=== PATIENT | male | born 1940 | race Caucasian/White ===

== ENCOUNTER 2020-05-28 22:09 | Emergency (ER) | payer MEDICARE, SELFPAY ==
[2020-05-28 22:17] VITALS: BP 125/64; PULSE 68; RESP 18; TEMP 36.7; O2SAT 96; BMI 29.9
--- NOTE | 2020-05-28 22:50 | PC.NURSE ---
pt brought in by ems d/t increased anxiety at home. per pts reported pt takes po ativan at home, that seems to not help as much anymore. pt works himself up into a panic attack per . Upon triage pt is alert to person, and city otherwise vague, but able to acknowledge that he will not be able to answer history questions. currently waiting to be seen, in waiting room if needed.
--- NOTE | 2020-05-28 23:08 | ED_ITS ---
HPI - General Adult General Chief complaint: Anxiety Stated complaint: INCREASED ANXIETY AND DEMENTIA SYMPTOMS Time Seen by Provider: 05/28/20 23:07 Source: family ( ) Mode of arrival: EMS History of Present Illness HPI narrative: This is a 79-year-old male with known severe dementia who is brought in by EMS after being called by the . The states that the patient has had increased anxiety to the point that he will began hyp erventilating and although he does have Ativan p.r.n. she is requesting an adjustment of the medication to better manage this patient's behavior. Related Data Home Medications Medication Instructions Recorded Confirmed amlodipine 5 mg PO DAILY 05/27/20 05/29/20 aspirin 81 mg PO DAILY 05/27/20 05/29/20 docusate sodium [Colace] 100 mg PO DAILY 05/27/20 05/29/20 lorazepam 0.5 mg PO BID PRN 05/27/20 05/29/20 metoprolol tartrate 100 mg PO BEDTIME 05/27/20 05/29/20 metoprolol tartrate [Lopressor] 150 mg PO DAILY 05/27/20 05/29/20 omeprazole 20 mg PO DAILY 05/27/20 05/29/20 simvastatin 40 mg PO BEDTIME 05/27/20 05/29/20 vitamin [id number] B1 1,000 ml IM QMONTH 05/27/20 05/29/20 Allergies Allergy/AdvReac Type Severity Reaction Status Date / Time bee pollen [BEE STINGS] Allergy Unknown UNKNOWN Verified 05/27/20 11:42 lisinopril [LISINOPRIL] Allergy Unknown FACIAL Verified 05/27/20 11:42 EDEMA Review of Systems Review of Systems: Yes Unobtainable due to mental condition [facility]LY [facility] Past Medical History Source: nursing notes reviewed Medical History Anxiety Dementia Heterozygous factor V Leiden mutation History of GI bleed History of melanoma Hx of deep venous thrombosis Hypertension Social History Social History Alcohol intake: unknown Smoking Status: Unknown if ever smoked Use of substances other than those prescribed or required for medical reasons: Unknown Advance Directives: No Advance Directives Information Provided: No Physical Exam Vital Signs: Vital Signs: Vital Signs Temp Pulse Resp BP Pulse Ox 05/29/20 01:19 97.9 F 74 16 112/59 L 97 05/28/20 22:17 98.0 F 68 18 125/64 96 Body Mass Index 29.9 VITAL SIGNS: Reviewed. GENERAL: Well developed, well nourished, in no acute distress. HEAD: Normocephalic/atraumatic, EYES: PERRLA, EOMI intact without pain, no nystagmus/pallor/icterus noted EARS: Ext canals without abnormality, TMs non-bulging and non-erythematous NOSE: Nares patent bilateral OROPHARYNX: no oral lesions noted, posterior pharynx clear and non-erythematous without noted tonsillar enlargement/erythema/exudates NECK: Supple, no adenopathy LUNGS: Normal breath sounds. No adventitious sounds or accessory muscle use. SpO2<96> CARDIOVASCULAR: Regular rate and rhythm without noted murmurs, no JVD or lower extremity edema. ABDOMEN: Soft, non-tender, non-distended with bowel sounds. No rigidity. No guarding. No palpable masses or hernias noted MUSCULOSKELETAL: No tenderness, deformities, or effusions noted on gross inspection. EXTREMITIES: No cyanosis, clubbing or edema. SKIN: Inspection of the skin reveals no rashes, ulcerations, jaundice, pallor, or petechiae. NEUROLOGIC: Alert and oriented x 4. Strength and sensation to light touch were grossly intact x 4. Course Course Course Narrative: This is a 79-year-old male with history and clinical presentation suggestive of progressive dementia and will discuss with the regarding possible placement versus increased assistance at home. Patient's is declining any additional resources at home, placement to a long-term care facility, and she was informed that we will evaluate for any evidence of infection or anemia but that if those conditions were ruled out then patient would be discharged back to home with instructions to call the primary care provider in the morning for re-evaluation of medications for agitation. On review of all investigations there is no evidence acute infection or anemia and patient has been calm and cooperative throughout his entire stay here in the emergency department. Suspect this may be progression dementia and patient would benefit from further outpatient evaluation and alternatives in medication such as Seroquel. Medical Decision Making Lab Data Result diagrams: 05/29/20 00:15 05/29/20 00:15 Labs: Lab Results 05/29/20 05/29/20 Range/Units 00:15 00:15 WBC 7.9 (4.8-10.8) X10*3/uL RBC 4.36 L (4.60-5.80) X10*6/uL Hgb 14.1 (14.0-18.0) g/dl Hct 39.3 L (42-52) % MCV 90.1 (80-98) fL MCH 32.3 (27.0-33.0) pg MCHC 35.9 (31.0-36.0) g/dl RDW 12.1 (11.0-16.0) % Plt Count 173 (160-400) X10*3/uL MPV 8.3 L (9.4-12.4) fL Immature Gran % (Auto) 0.3 (0.0-0.4) % Neut % (Auto) 63.8 (45-73) % Lymph % (Auto) 25.2 (20-40) % [place] % (Auto) 7.9 (2-11) % Eos % (Auto) 2.3 (0-4) % Baso % (Auto) 0.5 (0-2) % Lymph # (Auto) 2.0 (1.2-4.9) X10*3/uL [place] # (Auto) 0.6 (0.1-1.2) X10*3/uL Eos # (Auto) 0.2 (0.0-0.4) X10*3/uL Baso # (Auto) 0.0 (0.0-0.2) X10*3/uL Abs Immat Gran (auto) 0.02 (0.00-0.03) X10*3/uL Absolute Neuts (auto) 5.1 (2.0-8.3) X10*3/uL Absolute Nucleated RBC 0.000 (0.0-0.012) X10*3/uL Nucleated RBC % (auto) 0.0 (0.0-0.2) /100WBC Sodium 130 L (135-145) mmol/L Potassium 4.2 (3.3-5.1) mmol/l Chloride 97 (96-108) mmol/L Carbon Dioxide 21 L (22-29) mmol/L Anion Gap 16 (12-20) BUN 13 (9-16) mg/dL Creatinine 0.96 (0.5-1.4) mg/dL Estim Creat Clear Calc 77.7 Estimated GFR > 60 Random Glucose 93 (60-115) mg/dL Calcium 8.9 (8.4-10.2) mg/dL Total Bilirubin 1.4 H (0.0-1.0) mg/dL AST 22 (5-37) U/L ALT 15 (0-40) U/L Alkaline Phosphatase 78 (39-117) U/L Total Protein 6.9 (6.5-8.0) g/dL Albumin 4.0 (3.5-5.0) g/dL Discharge Plan Discharge Clinical Impression: Agitated Patient Disposition: Home, Self-Care Instructions: Dementia (ED) Additional Instructions: Please resume all home medications as prescribed. Please follow-up with your primary care provider in the morning to discuss further or alternative medications to treat the observed agitation or anxiety that the patient is a experiencing. The patient and/or family acknowledge understanding of results (as applicable), diagnosis, treatment plan, need for follow up, and symptoms that should prompt a return to the emergency room. Prescriptions: No Action amlodipine 5 mg Tablet 5 mg PO DAILY RF: 0 aspirin 81 mg Tablet 81 mg PO DAILY RF: 0 metoprolol tartrate 100 mg Tablet 100 mg PO BEDTIME RF: 0 metoprolol tartrate [Lopressor] 100 mg Tablet 150 mg PO DAILY RF: 0 simvastatin 40 mg Tablet 40 mg PO BEDTIME RF: 0 omeprazole 20 mg Capsule,Delayed Release(Dr/Ec) 20 mg PO DAILY RF: 0 vitamin A61-[id number] B1 1,000-100 mg/mL Solution 1,000 ml IM QMONTH RF: 0 lorazepam 0.5 mg Tablet 0.5 mg PO BID PRN (Reason: Anxiety) RF: 0 docusate sodium [Colace] 100 mg Capsule 100 mg PO DAILY RF: 0 Referrals: Physician,Unknown [Primary Care Provider] - 2 days
[2020-05-29 00:23] LABS: MANUAL DIFF FLAG NO
[2020-05-29 00:28] LABS: Basophils Percent Auto 0.5 % (0-2); Eosinophils Absolute Auto 0.2 X10*3/uL (0.0-0.4); Eosinophils Percent Auto 2.3 % (0-4); Hematocrit 39.3 % (42-52); Hemoglobin 14.1 g/dl (14.0-18.0); Imm Gran Abs Auto 0.02 X10*3/uL (0.00-0.03); Imm Gran Pct Auto 0.3 % (0.0-0.4); Lymphocytes Percent Auto 25.2 % (20-40); Mean Corpuscular HGB Conc 35.9 g/dl (31.0-36.0); Mean Corpuscular Hemoglobin 32.3 pg (27.0-33.0); Mean Corpuscular Volume 90.1 fL (80-98); Mean Platelet Volume 8.3 fL (9.4-12.4); Monocytes Absolute Auto 0.6 X10*3/uL (0.1-1.2); Monocytes Percent Auto 7.9 % (2-11); Neutrophils Absolute Auto 5.1 X10*3/uL (2.0-8.3); Neutrophils Percent Auto 63.8 % (45-73); Platelet Count 173 X10*3/uL (160-400); Red Blood Count 4.36 X10*6/uL (4.60-5.80); Red Cell Distribution Width 12.1 % (11.0-16.0); White Blood Count 7.9 X10*3/uL (4.8-10.8)
[2020-05-29 00:55] LABS: Alanine Aminotransferase 15 U/L (0-40); Alkaline Phosphatase 78 U/L (39-117); Anion Gap 16 (12-20); Aspartate Amino Transferase 22 U/L (5-37); Bilirubin Total 1.4 mg/dL (0.0-1.0); Blood Urea Nitrogen 13 mg/dL (9-16); Calcium 8.9 mg/dL (8.4-10.2); Carbon Dioxide 21 mmol/L (22-29); Chloride 97 mmol/L (96-108); Creatinine Clr Calc Pharmacy 77.7; Estimated Glomerular Filt Rate > 60; Glucose Random 93 mg/dL (60-115); Potassium 4.2 mmol/l (3.3-5.1); Sodium 130 mmol/L (135-145); Total Protein 6.9 g/dL (6.5-8.0)
[2020-05-29 01:19] VITALS: BP 112/59; PULSE 74; RESP 16; TEMP 36.6; O2SAT 97
[2020-05-29 01:45] LABS: Glucose Urine UA NEG (NEG); Leukocyte Esterase Urine TRACE (NEG); Nitrite Urine NEG (NEG); Specific Gravity - Urine <= 1.005 (1.005-1.025); Urine Blood NEG (NEG); Urine Ketones NEG (NEG); Urine Protein NEG (NEG-TRACE)
[2020-05-29 01:47] LABS: Appearance Urine CLEAR; Color Urine YELLOW
[2020-05-29 02:01] LABS: Bacteria Urine 1+ /LPF; Squamous Epithelial Cell Urine 1+ /LPF
== END 2020-05-29 02:20 | disposition home or self-care (01) ==
PROVIDERS: Emergency Provider Student in an Organized Health Care Education/Training Program
DX: R45.1 Restlessness and agitation (principal); F03.90 Unspecified dementia, unspecified severity, without behavioral disturbance, psychotic disturbance, mood disturbance, and anxiety; I10 Essential (primary) hypertension; Z86.718 Personal history of other venous thrombosis and embolism; Z79.82 Long term (current) use of aspirin; Z79.899 Other long term (current) drug therapy
CPT/HCPCS: 36415; 80053; 81001; 85025; 87086; 99283; 99284

== ENCOUNTER 2020-09-25 13:42 | Outpatient (REF) | payer MEDICARE, SELFPAY ==
[2020-09-25 16:34] LABS: MANUAL DIFF FLAG NO
[2020-09-25 16:40] LABS: Basophils Percent Auto 0.5 % (0-2); Eosinophils Absolute Auto 0.1 X10*3/uL (0.0-0.4); Eosinophils Percent Auto 1.3 % (0-4); Hematocrit 43.5 % (42-52); Hemoglobin 14.6 g/dl (14.0-18.0); Imm Gran Abs Auto 0.01 X10*3/uL (0.00-0.03); Imm Gran Pct Auto 0.1 % (0.0-0.4); Lymphocytes Absolute Auto 1.7 X10*3/uL (1.2-4.9); Lymphocytes Percent Auto 22.4 % (20-40); Mean Corpuscular HGB Conc 33.6 g/dl (31.0-36.0); Mean Corpuscular Hemoglobin 32.3 pg (27.0-33.0); Mean Corpuscular Volume 96.2 fL (80-98); Mean Platelet Volume 8.6 fL (9.4-12.4); Monocytes Absolute Auto 0.6 X10*3/uL (0.1-1.2); Monocytes Percent Auto 7.9 % (2-11); Neutrophils Absolute Auto 5.2 X10*3/uL (2.0-8.3); Neutrophils Percent Auto 67.8 % (45-73); Platelet Count 199 X10*3/uL (160-400); Red Blood Count 4.52 X10*6/uL (4.60-5.80); Red Cell Distribution Width 13.1 % (11.0-16.0); White Blood Count 7.6 X10*3/uL (4.8-10.8)
[2020-09-25 16:53] LABS: Blood Urea Nitrogen 16 mg/dL (9-16); Estimated Glomerular Filt Rate > 60
[2020-09-25 16:59] LABS: Alanine Aminotransferase 34 U/L (0-40); Albumin Level 4.2 g/dL (3.5-5.0); Alkaline Phosphatase 101 U/L (39-117); Anion Gap 12 (12-20); Aspartate Amino Transferase 34 U/L (5-37); Bilirubin Total 1.2 mg/dL (0.0-1.0); Blood Urea Nitrogen 17 mg/dL (9-16); Calcium 8.6 mg/dL (8.4-10.2); Carbon Dioxide 28 mmol/L (22-29); Chloride 98 mmol/L (96-108); Estimated Glomerular Filt Rate 58; Glucose Random 91 mg/dL (60-115); Lactate Dehydrogenase 194 U/L (118-273); Potassium 4.7 mmol/L (3.3-5.1); Sodium 133 mmol/L (135-145); Total Protein 7.3 g/dL (6.5-8.0)
== END 2020-09-25 13:43 | disposition home or self-care (01) ==
LOC: HO.HMGCLDS 13:42
PROVIDERS: Internal Medicine Medical Oncology; PCP Internal Medicine; Visit Provider Urology
DX: N28.89 Other specified disorders of kidney and ureter (principal); Z86.718 Personal history of other venous thrombosis and embolism
CPT/HCPCS: 36415; 80053; 82565; 83615; 84520; 85025

== ENCOUNTER 2020-10-03 14:17 | Outpatient (REF) | payer MEDICARE, SELFPAY ==
--- NOTE | ~2020-10-03 | CT_ITS ---
EXAMINATION: CT ABDOMEN AND PELVIS WITHOUT AND WITH CONTRAST CLINICAL INFORMATION: Renal mass COMPARISON: Previous CT scans of the abdomen and pelvis April 2020 and previous renal ultrasounds most recent January 2018 TECHNIQUE: Multidetector volumetric imaging was performed of the abdomen and pelvis before and after the IV administration of 85 mL of Omnipaque 350 intravenous contrast. Sagittal and coronal reformatted images were obtained on the technologist's workstation. This CT examination was performed using dose optimization techniques as appropriate, variously including the following: *Automated exposure control *Adjustment of mA and/or kV according to patient size (this includes techniques or standardized protocols for targeted exams where dose is matched to indication/reason for exam; i.e. extremities or head) *Use of iterative reconstruction technique DLP: 1001 mGy-cm FINDINGS: LUNG BASES: The visualized lung bases are unremarkable. LIVER, GALLBLADDER, AND BILIARY TREE: The liver is normal in size, shape, and attenuation. No focal hepatic lesion or biliary ductal dilatation is present. Gallstones. PANCREAS: Unremarkable SPLEEN: Unremarkable ADRENAL GLANDS: Unremarkable KIDNEYS AND URETERS: There are areas of bilateral renal cortical thinning or scarring. The right kidney is smaller than the left. There is a 3 x 6 mm calcification in the posterior upper to midpole of the right kidney. It is uncertain whether this represents a small stone versus cortical calcification. There is a 1 cm cyst in the lower pole of the left kidney. No renal mass is seen. There is a soft tissue thickening of the left renal pelvis. This is similar to previous exam. No mass, hydronephrosis, ureteral dilatation or ureteral stone is seen. BLADDER: Unremarkable GASTROINTESTINAL TRACT: There is stool throughout the colon. There is evidence of diverticulosis. The small and large bowel are otherwise unremarkable. The appendix is unremarkable. ABDOMINAL WALL: No significant hernia is appreciated. LYMPH NODES: Normal VASCULAR: There is evidence of atherosclerotic disease. PELVIC VISCERA: Unremarkable OSSEOUS STRUCTURES: There is bilateral femoral head AVN. There are degenerative changes of the spine. CT/CT abdomen pelvis wo/w con IMPRESSION: Bilateral renal cortical thinning or scarring. The right kidney is smaller than the left. Stable small right renal stone versus cortical calcification. Stable urothelial thickening of the left renal pelvis. No mass seen. Gallstones. Constipation and diverticulosis. Bilateral femoral head AVN.
[2020-10-03] MEDS: iohexoL 350 MG/ML 100 ML INFUS..BTL IV (14:55)
== END 2020-10-03 14:18 | disposition home or self-care (01) ==
LOC: HO.CT 14:17
PROVIDERS: Visit Provider Urology
DX: N28.89 Other specified disorders of kidney and ureter (principal)
CPT/HCPCS: 74178; Q9967

== ENCOUNTER → 2020-10-10 15:22 | Outpatient (BNVA) | payer MEDICARE, SELFPAY | PROVIDERS: PCP Internal Medicine; Visit Provider Urology | DX: Z13.89 Encounter for screening for other disorder (principal) | CPT/HCPCS: Q3014 ==

== ENCOUNTER 2020-10-14 13:16 | Outpatient (REF) | payer MEDICARE, SELFPAY | END 2020-10-14 13:17 | disposition home or self-care (01) | LOC: HO.HMGCLDS 13:16 | PROVIDERS: PCP Internal Medicine; Visit Provider Urology | DX: C67.9 Malignant neoplasm of bladder, unspecified (principal) | CPT/HCPCS: 88121 ==

== ENCOUNTER 2020-12-18 11:49 | Emergency (ER) | payer MEDICARE, SELFPAY ==
[2020-12-18] VITALS (7 sets, daily range): BP systolic 133–158; BP diastolic 69–75; PULSE 72–90; RESP 15–18; TEMP 36.5–36.8; O2SAT 97–100; BMI 36.1
--- NOTE | ~2020-12-18 | XR_ITS ---
EXAMINATION: XR CHEST CLINICAL INFORMATION: Chest pain. Fall. Rule out rib fracture. COMPARISON: Previous chest x-ray August 2018 TECHNIQUE: 2 views of the chest were obtained. FINDINGS: The cardiac and mediastinal contours are stable. The lungs are clear. There is no pleural effusion or pneumothorax. There are degenerative changes of the spine. There is ossification of the anterior and posterior longitudinal ligaments. No fracture is seen. XR/XR chest 2V IMPRESSION: No evidence for acute disease in the chest.
--- NOTE | ~2020-12-18 | CT_ITS ---
EXAMINATION: CT BRAIN AND CT CERVICAL SPINE WITHOUT CONTRAST. CLINICAL INFORMATION: CT brain and CT cervical spine without contrast. COMPARISON: None TECHNIQUE: 5 mm thin axial and reformatted 2 mm thin images of brain were obtained. Subsequently axial 3 mm thin and reformatted 2 mm thin sagittal and coronal images of cervical spine were obtained. DL [id number] FINDINGS: BRAIN: There is no acute intra-axial, extra-axial bleed, masses or midline shift. There is no acute infarction in evolution. There is no edema. The lateral ventricles are symmetrical in size and configuration without enlargement. There is diffuse periventricular hypodensity in both cerebral hemispheres without mass effect. Bone windows reveal no calvarial abnormality. There is mild mucoperiosteal thickening bilateral maxillary, ethmoid and frontal sinuses. Rest of the paranasal sinuses and mastoid air cells are well-aerated. There is no scalp soft tissue abnormality seen either. CERVICAL SPINE: There is normal cervical lordosis. The vertebral heights appear normal. There is anterolisthesis C5 over C6. Rest of the vertebral alignment is normal. The craniovertebral junction and the C1-C2 alignment is normal. There is no visible acute fracture, dislocation or subluxation seen. There is bilateral C2-C3, C3-C4, C4-C5, C5-C6 and C6-C7 facet joint arthropathy. The prevertebral and paravertebral soft tissues are normal. The airway is widely patent. The lung apices are clear. The thyroid lobes, submandibular gland and parotid glands are symmetrical and normal. CT/CT cervical spine wo con IMPRESSION: No acute intracranial process seen. There is age-related cerebral volume loss with chronic small vessel ischemic changes. There is no acute fracture, dislocation or subluxation. There is grade 1 anterolisthesis C5 over C6. No acute fracture, dislocation or subluxation seen.
--- NOTE | ~2020-12-18 | XR_ITS ---
EXAMINATION: XR ANKLE, RIGHT CLINICAL INFORMATION: Fall. COMPARISON: Right ankle 11/23/2013 TECHNIQUE: AP, lateral, and mortise views of the right ankle. FINDINGS: There is moderate bilateral malleolar soft tissue swelling. There is mild reduction in the ankle mortise and subtalar joints. There is moderate hypertrophic changes along the dorsal talus. Small calcaneal heel and retrocalcaneal enthesophytes are seen. There is vascular calcification noted along the posterior ankle. XR/XR ankle RT min 3V IMPRESSION: Bimalleolar soft tissue swelling. Mild degenerative changes ankle mortise and subtalar joint. Moderate-sized enthesophytes along the dorsal talus
--- NOTE | ~2020-12-18 | XR_ITS ---
EXAMINATION: XR ELBOW, RIGHT CLINICAL INFORMATION: Elbow pain. Fall. COMPARISON: None TECHNIQUE: AP, lateral, and oblique views of the right elbow. FINDINGS: Bone alignment is normal. No fracture or dislocation is seen. The joint spaces are normal. There are osteophytes projecting off the medial and lateral humeral epicondyles and olecranon. There is no joint effusion. There is soft tissue arterial calcification. XR/XR elbow RT min 3V IMPRESSION: No fracture or dislocation seen.
--- NOTE | 2020-12-18 13:17 | ECG_ITS ---
Test Reason : FALL Blood Pressure : / mmHG Vent. Rate : 067 BPM Atrial Rate : 067 BPM P-R Int : 210 ms QRS Dur : 124 ms QT Int : 438 ms P-R-T Axes : 068 -78 007 degrees QTc Int : 462 ms Sinus rhythm with 1st degree A-V block Left axis deviation Right bundle branch block Abnormal ECG When compared with ECG of 10-SEP-2016 00:46, Premature supraventricular complexes are no longer Present NC interval has increased Vent. rate has decreased BY 51 BPM Right bundle branch block is now Present Referred By: Ermias Yeung Electronically Signed By:CAREY MORENO MD
--- NOTE | 2020-12-18 13:22 | ED.GENADULT ---
HPI - General Adult General Chief complaint: Fall Stated complaint: FALL W/R ELBOW PAIN/ABRASION Time Seen by Provider: 12/18/20 12:50 Source: patient and family Mode of arrival: ambulatory Limitations: other (Patient defers all questions to his secondary to memory deficits) History of Present Illness HPI narrative: 80-year-old male who was brought to the emergency department by ambulance for evaluation of a fall at home. The patient has difficulty with his memory and defers to his to answer all questions. 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 According to his , the patient was getting ready to take a shower. He was getting undressed and pulling his shirt over his head when he lost his balance and fell. This was unwitnessed but the found the patient lying on the floor. She believes that he struck his head either on the floor or objects that were near the floor. The patient was lying on his left side but did have an injury to his right elbow. He had no loss of consciousness. According to the , the patient fell 3 weeks ago when he was trying to step over a dog. The witnessed the 1st fall and states the patient fell slowly and she does not believe the and shared his head but states that he did have a ?whiplash ? movement of his neck prior to falling. The states the patient has been incontinent of urine for the past 5 nights. The patient had a Rosen catheter placed in March of 2020 and pulled the catheter out himself. The states that since this time, the patient has had a decline in his mental status. The patient has increased memory deficits. He has had trouble with numbers, trouble with days of the week and has general confusion and increased difficulty with his memory.. Related Data Home Medications Medication Instructions Recorded Confirmed amlodipine 5 mg PO DAILY 05/27/20 05/29/20 aspirin 81 mg PO DAILY 05/27/20 05/29/20 docusate sodium [Colace] 100 mg PO DAILY 05/27/20 05/29/20 lorazepam 0.5 mg PO BID PRN 05/27/20 05/29/20 metoprolol tartrate 100 mg PO BEDTIME 05/27/20 05/29/20 metoprolol tartrate [Lopressor] 150 mg PO DAILY 05/27/20 05/29/20 omeprazole 20 mg PO DAILY 05/27/20 05/29/20 simvastatin 40 mg PO BEDTIME 05/27/20 05/29/20 vitamin [id number] B1 1,000 ml IM QMONTH 05/27/20 05/29/20 lorazepam 1 mg tablet 1 mg PO TID 10/10/20 mupirocin 2 % topical ointment TOPICAL 10/10/20 quetiapine 25 mg tablet 25 mg PO BEDTIME 10/10/20 sertraline 25 mg tablet 25 mg PO DAILY 10/10/20 Allergies Allergy/AdvReac Type Severity Reaction Status Date / Time bee pollen [BEE STINGS] Allergy Unknown UNKNOWN Verified 05/27/20 11:42 lisinopril [LISINOPRIL] Allergy Unknown FACIAL Verified 05/27/20 11:42 EDEMA Review of Systems Review of Systems: Yes all other systems are reviewed and are negative [facility] Past Medical History [facility] Narrative: Past medical issues in for hypertension, hyperlipidemia, GERD, Montgomery's esophagitis, pneumonia, delirium tremors, DVT, hematoma and rheumatic fever as a child. Patient lives at home with his . He is a former cigarette smoker and quit 40 years ago. He drinks 6 beers per day. He has had DTs in the past. He does not use any drugs. Medical History Anxiety Dementia Heterozygous factor V Leiden mutation History of GI bleed History of melanoma Hx of deep venous thrombosis Hypertension Vascular dementia Social History Social History Alcohol intake: current Alcohol intake frequency: 3 or more drinks per day Alcohol type: beer Smoking Status: Former smoker Use of substances other than those prescribed or required for medical reasons: No Advance Directives: No Advance Directives Information Provided: Yes Physical Exam Vital Signs: Vital Signs: Last Vital Signs Temp 97.7 F 12/18/20 14:23 Pulse 72 12/18/20 14:23 Resp 15 12/18/20 14:23 BP 142/75 H 12/18/20 14:23 Pulse Ox 97 12/18/20 14:23 Body Mass Index 36.1 Const: General: cooperative and other (Defers to his to answer all questions) Orientation/consciousness: oriented to person HENMT: Head: Yes normal to inspection, Yes normocephalic and Yes atraumatic Ears: external ears normal General nose exam: Normal external nose present Face and sinus: Yes normal facial exam Mouth: Normal oral and palatal mucosa present Throat: Yes posterior oropharynx normal Eyes: Periorbital: periorbital findings normal Eyelids: Yes eyelids normal Conjunctivae: conjunctivae normal Sclerae: sclerae normal Corneas: corneas normal Pupils: Equal, round and reactive pupils present Direct Ophthalmoscopy: normal light reflex Neck: Other: Cervical spine tenderness Neck: Yes full ROM, Yes no lymphadenopathy, Yes no meningeal signs and Yes trachea midline Chest: Chest palpation & inspection: normal inspection of the chest and normal palpation of entire chest wall Resp: Effort & Inspection: normal respiratory effort and able to speak in complete sentences Auscultation: clear to auscultation bilaterally Cardio: Rate: regular rate Rhythm: regular rhythm Heart sounds: S1 normal heart sound present, S2 normal heart sound present and no murmurs GI: Inspection: Yes normal to inspection Palpation (GI): Soft to palpation, nontender, no guarding, not rigid and No hepatosplenomegaly present Auscultation: normal bowel sounds : General: Yes no CVA tenderness Back/Spine/Pelvis: Back: no CVA tenderness Cervical Spine: normal cervical lordosis Thoracic/Lumbar Spine: thoracic and lumbar spine normal to inspection Skin: Lesions: no lesions Rashes: no rashes Wounds: no wounds Neuro: General: oriented to person and no meningeal signs Cranial nerves: Yes CN's II-XII intact bilaterally and Yes Equal, round and reactive pupils present Cognition (Neuro): normal cognition Motor exam (neuro): 5/5 motor strength present throughout Extrem: Other: Left elbow ecchymosis and tenderness with pain with flexion extension of the elbow General: Yes normal to inspection and Yes full ROM Psych: Appearance: well kempt Speech and movement: Normal speech and movement present Affect: normal affect Attitude: cooperative Thought content: Normal thought content present Course Course Course Narrative: 80-year-old male who presents emergency department for evaluation of a fall while he was trying to take is short off take a shower. The fall was unwitnessed but the patient was found awake and alert on the ground very shortly after he fell. The patient also fell 3 weeks prior and according to the he has had progressive worsening dementia since March of 2020. The patient is also incontinent at night over the last 4 of 5 nights. Patient's vital signs were normal. Patient's examination did reveal an abrasion to his elbow otherwise was unremarkable. I did order a laboratory evaluation, CT scan of the head and neck, chest x-ray urinalysis, and EKG on the patient. I will also obtain a case management consult since the patient is require more care at home and at this time, the is the only caregiver. 1635: The patient's laboratory evaluation was unremarkable except for a detectable but not elevated high sensitivity troponin. The CT scan of the patient's brain is consistent with diffuse periventricular hypodensities consistent with microvascular changes but no acute changes. Patient's urinalysis was unremarkable. Chest x-ray and right elbow x-ray were unremarkable as well. The patient most likely had a mechanical fall from trying to undress prior to getting in the shower. The patient is medically cleared and will be evaluated by Case Management to determine if he can get outpatient services. 1648: I did discuss the patient's presentation with the home health care case manager. She recommended that the patient be observed overnight and that a PT consult be obtained in the morning to determine if the patient qualifies for short-term rehab. The patient's is comfortable with this decision as well. The patient will be placed in physician observation. Physician observation started at 4:48 p.m.. Patient placed in physician observation because the patient needed physical therapy evaluation to determine if he qualifies for short-term rehab secondary to his multiple falls and gait instability. At the time observation was started the patient's vitals were stable, patient is alert and oriented patient is cooperative, Neuro: nonfocal, CV RRR, Lungs clear. Medical Decision Making Lab Data Result diagrams: 12/18/20 13:38 12/18/20 15:31 Labs: Lab Results 12/18/20 12/18/20 12/18/20 Range/Units 13:38 13:38 13:40 WBC 4.6 L (4.8-10.8) X10*3/uL RBC 4.00 L (4.60-5.80) X10*6/uL Hgb 13.0 L (14.0-18.0) g/dl Hct 37.5 L (42-52) % MCV 93.8 (80-98) fL MCH 32.5 (27.0-33.0) pg MCHC 34.7 (31.0-36.0) g/dl RDW 12.8 (11.0-16.0) % Plt Count 170 (160-400) X10*3/uL MPV 8.1 L (9.4-12.4) fL Immature Gran % (Auto) 0.2 (0.0-0.4) % Neut % (Auto) 64.4 (45-73) % Lymph % (Auto) 22.5 (20-40) % [place] % (Auto) 10.4 (2-11) % Eos % (Auto) 1.9 (0-4) % Baso % (Auto) 0.6 (0-2) % Lymph # (Auto) 1.0 L (1.2-4.9) X10*3/uL [place] # (Auto) 0.5 (0.1-1.2) X10*3/uL Eos # (Auto) 0.1 (0.0-0.4) X10*3/uL Baso # (Auto) 0.0 (0.0-0.2) X10*3/uL Abs Immat Gran (auto) 0.01 (0.00-0.03) X10*3/uL Absolute Neuts (auto) 3.0 (2.0-8.3) X10*3/uL Absolute Nucleated RBC 0.000 (0.0-0.012) X10*3/uL Nucleated RBC % (auto) 0.0 (0.0-0.2) /100WBC PT (10.8-13.0) SEC INR (0.9-1.1) APTT (24.1-38.0) SEC Sodium (135-145) mmol/L Potassium (3.3-5.1) mmol/L Chloride (96-108) mmol/L Carbon Dioxide (22-29) mmol/L Anion Gap (12-20) BUN (9-16) mg/dL Creatinine (0.5-1.4) mg/dL Estim Creat Clear Calc Estimated GFR Random Glucose (60-115) mg/dL Calcium (8.4-10.2) mg/dL Total Bilirubin (0.0-1.0) mg/dL AST (5-37) U/L ALT (0-40) U/L Alkaline Phosphatase (39-117) U/L Troponin I High Sens 15.5 (<3.5-35.0) ng/L Total Protein (6.5-8.0) g/dL Albumin (3.5-5.0) g/dL Lipase (8-78) U/L Urine Color YELLOW Urine Appearance CLEAR Urine pH 6.5 (5.0-8.0) Ur Specific [place] 1.010 (1.005-1.025) Urine Protein NEG (NEG-TRACE) MG/DL Urine Glucose (UA) NEG (NEG) MG/DL Urine Ketones NEG (NEG) MG/DL Urine Blood NEG (NEG) Urine Nitrite NEG (NEG) Ur Leukocyte Esterase NEG (NEG) Ethyl Alcohol mg/dL 12/18/20 12/18/20 12/18/20 Range/Units 15:31 15:31 15:31 WBC (4.8-10.8) X10*3/uL RBC (4.60-5.80) X10*6/uL Hgb (14.0-18.0) g/dl Hct (42-52) % MCV (80-98) fL MCH (27.0-33.0) pg MCHC (31.0-36.0) g/dl RDW (11.0-16.0) % Plt Count (160-400) X10*3/uL MPV (9.4-12.4) fL Immature Gran % (Auto) (0.0-0.4) % Neut % (Auto) (45-73) % Lymph % (Auto) (20-40) % [place] % (Auto) (2-11) % Eos % (Auto) (0-4) % Baso % (Auto) (0-2) % Lymph # (Auto) (1.2-4.9) X10*3/uL [place] # (Auto) (0.1-1.2) X10*3/uL Eos # (Auto) (0.0-0.4) X10*3/uL Baso # (Auto) (0.0-0.2) X10*3/uL Abs Immat Gran (auto) (0.00-0.03) X10*3/uL Absolute Neuts (auto) (2.0-8.3) X10*3/uL Absolute Nucleated RBC (0.0-0.012) X10*3/uL Nucleated RBC % (auto) (0.0-0.2) /100WBC PT 12.6 (10.8-13.0) SEC INR 1.1 (0.9-1.1) APTT 34.6 (24.1-38.0) SEC Sodium 133 L (135-145) mmol/L Potassium 4.6 (3.3-5.1) mmol/L Chloride 98 (96-108) mmol/L Carbon Dioxide 25 (22-29) mmol/L Anion Gap 15 (12-20) BUN 13 (9-16) mg/dL Creatinine 0.90 (0.5-1.4) mg/dL Estim Creat Clear Calc 79.1 Estimated GFR > 60 Random Glucose 83 (60-115) mg/dL Calcium 9.2 D (8.4-10.2) mg/dL Total Bilirubin 1.2 H (0.0-1.0) mg/dL AST 23 (5-37) U/L ALT 13 (0-40) U/L Alkaline Phosphatase 75 D (39-117) U/L Troponin I High Sens (<3.5-35.0) ng/L Total Protein 6.9 (6.5-8.0) g/dL Albumin 4.1 (3.5-5.0) g/dL Lipase 27 (8-78) U/L Urine Color Urine Appearance Urine pH (5.0-8.0) Ur Specific [place] (1.005-1.025) Urine Protein (NEG-TRACE) MG/DL Urine Glucose (UA) (NEG) MG/DL Urine Ketones (NEG) MG/DL Urine Blood (NEG) Urine Nitrite (NEG) Ur Leukocyte Esterase (NEG) Ethyl Alcohol < 10 mg/dL Discharge Plan Discharge Prescriptions: No Action amlodipine 5 mg Tablet 5 mg PO DAILY RF: 0 aspirin 81 mg Tablet 81 mg PO DAILY RF: 0 metoprolol tartrate 100 mg Tablet 100 mg PO BEDTIME RF: 0 metoprolol tartrate [Lopressor] 100 mg Tablet 150 mg PO DAILY RF: 0 simvastatin 40 mg Tablet 40 mg PO BEDTIME RF: 0 omeprazole 20 mg Capsule,Delayed Release(Dr/Ec) 20 mg PO DAILY RF: 0 vitamin [id number] B1 1,000-100 mg/mL Solution 1,000 ml IM QMONTH RF: 0 lorazepam 0.5 mg Tablet 0.5 mg PO BID PRN (Reason: Anxiety) RF: 0 docusate sodium [Colace] 100 mg Capsule 100 mg PO DAILY RF: 0
[2020-12-18 13:49] LABS: MANUAL DIFF FLAG NO
[2020-12-18 13:53] LABS: Basophils Percent Auto 0.6 % (0-2); Eosinophils Absolute Auto 0.1 X10*3/uL (0.0-0.4); Eosinophils Percent Auto 1.9 % (0-4); Hematocrit 37.5 % (42-52); Imm Gran Abs Auto 0.01 X10*3/uL (0.00-0.03); Imm Gran Pct Auto 0.2 % (0.0-0.4); Lymphocytes Percent Auto 22.5 % (20-40); Mean Corpuscular HGB Conc 34.7 g/dl (31.0-36.0); Mean Corpuscular Hemoglobin 32.5 pg (27.0-33.0); Mean Corpuscular Volume 93.8 fL (80-98); Mean Platelet Volume 8.1 fL (9.4-12.4); Monocytes Absolute Auto 0.5 X10*3/uL (0.1-1.2); Monocytes Percent Auto 10.4 % (2-11); Neutrophils Percent Auto 64.4 % (45-73); Platelet Count 170 X10*3/uL (160-400); Red Cell Distribution Width 12.8 % (11.0-16.0); White Blood Count 4.6 X10*3/uL (4.8-10.8)
[2020-12-18 13:56] LABS: Glucose Urine UA NEG (NEG); Leukocyte Esterase Urine NEG (NEG); Nitrite Urine NEG (NEG); PH 6.5 (5.0-8.0); Urine Blood NEG (NEG); Urine Ketones NEG (NEG); Urine Protein NEG (NEG-TRACE)
[2020-12-18 13:57] LABS: Appearance Urine CLEAR; Color Urine YELLOW
[2020-12-18 14:21] LABS: Troponin-I High Sensitivity 15.5 ng/L (<3.5-35.0)
--- NOTE | 2020-12-18 15:05 | PC.NURSE ---
Report given to JILLIAN Austin. pt presentation, treatments, VS trends and plan reviewed.
[2020-12-18 15:43] LABS: INTERNATIONAL NORM RATIO 1.1 (0.9-1.1); Prothrombin Time 12.6 SEC (10.8-13.0)
[2020-12-18 15:46] LABS: Partial Thromboplastin Time 34.6 SEC (24.1-38.0)
[2020-12-18 16:03] LABS: Ethanol < 10 mg/dL
[2020-12-18 16:06] LABS: Alanine Aminotransferase 13 U/L (0-40); Albumin Level 4.1 g/dL (3.5-5.0); Alkaline Phosphatase 75 U/L (39-117); Anion Gap 15 (12-20); Aspartate Amino Transferase 23 U/L (5-37); Bilirubin Total 1.2 mg/dL (0.0-1.0); Blood Urea Nitrogen 13 mg/dL (9-16); Calcium 9.2 mg/dL (8.4-10.2); Carbon Dioxide 25 mmol/L (22-29); Chloride 98 mmol/L (96-108); Creatinine Clr Calc Pharmacy 79.1; Estimated Glomerular Filt Rate > 60; Glucose Random 83 mg/dL (60-115); Lipase 27 U/L (8-78); Potassium 4.6 mmol/L (3.3-5.1); Sodium 133 mmol/L (135-145); Total Protein 6.9 g/dL (6.5-8.0)
--- NOTE | 2020-12-18 18:07 | MHC.CM.ED ---
Pt has vascular dementia and is a very poor historian. CM met with , Laurie ([phone]) who is pt HCP and it is on file. Pt fell today getting ready to shower. Per Laurie, she has been providing 24/7 care for her . Admits that he furniture walks for stability , even though he has a cane. Also has an electric recliner which helps with getting up. Pt has fallen several times in the past 3 weeks. Pt does not have any services. Medically cleared. Pt will have a PT evaluation in the am with possible recommendation for STR. Laurie agrees with this plan. Would like STR locally. Laurie is going home now. Will print out SNF listing for her for the am. Will place referrals pending PT recommendations. Laurie agrees with this plan. CM to follow for d/c needs.
--- NOTE | 2020-12-18 18:15 | MHC.CM.ED ---
CM discussed with Laurie, and HCP, that she may want to meet with Financial Services to plan for possible LTC in the future. 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 and know to this CM. CM will follow for d/c needs.
--- NOTE | 2020-12-18 19:48 | PC.NURSE ---
assisted pt to bathroom, able to stand and pivot to wc. pt unsteady, uses cane. pt very confused. pt reports that he did finish his dinner. pt had a small soft bm in toilet, able to void. no visible skin breakdown when assisted with cleaning following bm.
[2020-12-18 19:53] LABS: COVID-19 Test Negative (Negative); IDNOW Serial# 9DD0AD1C
[2020-12-18] MEDS: LORazepam 1 MG TABLET PO (21:46)
[2020-12-18] MEDS: Metoprolol Tartrate 100 MG TABLET 150 MG PO (21:47)
[2020-12-18] MEDS: QUEtiapine Fumarate 25 MG TABLET PO (21:47)
[2020-12-18] MEDS: Metoprolol Tartrate 100 MG TABLET PO (21:49)
--- NOTE | 2020-12-19 00:04 | PC.NURSE ---
pt ambulatory to bathroom, aprox 30 feet with steady gait and use of cane. rn by side for safety. pt still considered a fall risk. pt has slow gait. able to void aprox 400-500 cc's urine.
--- NOTE | 2020-12-19 01:32 | PC.NURSE ---
pt wide awake, can't fall asleep. offered food and beverages but declined.
[2020-12-19 04:21] VITALS: BP 151/80; PULSE 73; RESP 16; O2SAT 98
[2020-12-19 07:43] VITALS: BP 145/82; PULSE 88; RESP 16; O2SAT 96
[2020-12-19] MEDS: LORazepam 1 MG TABLET PO (08:04)
[2020-12-19 08:05] VITALS: BP 145/82; PULSE 88
[2020-12-19] MEDS: Omeprazole 20 MG CAPSULE.DR PO (08:05)
[2020-12-19] MEDS: Sertraline HCL 25 MG TABLET PO (08:05)
[2020-12-19] MEDS: amLODIPine Besylate 5 MG TABLET PO (08:05)
[2020-12-19] MEDS: Aspirin Enteric Coated 81 MG TABLET.DR PO (08:05)
[2020-12-19] MEDS: Atorvastatin Calcium 20 MG TABLET PO (08:05)
--- NOTE | 2020-12-19 08:14 | PC.NURSE ---
Pt is confused, flight of ideas. Able to answer simple questions appropriately but frequently needs to be redirected throughout conversation. Exit seeking. Ambulates with cane but unsteady and generally weak after ambulating for a short time. Skin is pink warm and dry. Speech is clear. Hospital bed provided. Pt assisted with urinal and attempted to have bowel movement and unable. Declined breakfast. Accepted a cup of water and AM meds whole with encouragement. Vitals stable. Case management
--- NOTE | 2020-12-19 09:20 | PC.NURSE ---
Spoke to Laurie who states she will come to ED in about 1 hour
--- NOTE | 2020-12-19 09:37 | PC.NURSE ---
Physical therapy at bedside for evaluation
[2020-12-19 09:51] VITALS: BP 145/82; PULSE 88
--- NOTE | 2020-12-19 10:08 | PC.NURSE ---
Right ankle swollen, xray ordered placed and completed
--- NOTE | 2020-12-19 12:52 | PC.NURSE ---
Report given to receiving nurse Daniel RN at [facility].
== END 2020-12-19 13:27 | disposition skilled nursing facility (03) ==
PROVIDERS: Internal Medicine; Emergency Provider Emergency Medicine Emergency Medical Services; PCP Internal Medicine
DX: S59.901A Unspecified injury of right elbow, initial encounter (principal); G44.309 Post-traumatic headache, unspecified, not intractable; R07.89 Other chest pain; M25.571 Pain in right ankle and joints of right foot; M54.2 Cervicalgia; W01.0XXA Fall on same level from slipping, tripping and stumbling without subsequent striking against object, initial encounter; Y93.9 Activity, unspecified; Y92.003 Bedroom of unspecified non-institutional (private) residence as the place of occurrence of the external cause; Y99.9 Unspecified external cause status; Z20.822 Contact with and (suspected) exposure to COVID-19; Z91.81 History of falling
CPT/HCPCS: 36415; 70450; 71046; 72125; 73080; 73610; 80053; 80320; 81003; 83690; 84484; 85025; 85610; 85730; 87635; 93005; 97162; 99285

== ENCOUNTER 2020-12-28 15:41 | Inpatient (IN) | payer MEDICARE, SELFPAY ==
--- NOTE | ~2020-12-28 | CT_ITS ---
EXAMINATION: CT HEAD WITHOUT CONTRAST CLINICAL INFORMATION: Altered mental status. COMPARISON: CT head 12/18/2020. CT head 07/12/2009, 09/18/2016, 05/06/2020. TECHNIQUE: Contiguous axial imaging was performed from the skull base to vertex without intravenous administration of contrast. This CT examination was performed using dose optimization techniques as appropriate, variously including the following: *Automated exposure control *Adjustment of mA and/or kV according to patient size (this includes techniques or standardized protocols for targeted exams where dose is matched to indication/reason for exam; i.e. extremities or head) *Use of iterative reconstruction technique DLP: 911 mGy-cm FINDINGS: Moderate diffuse commensurate prominence of ventricles and sulci is noted. Nearly confluent subcortical and periventricular white matter patchy hypodensities are identified. No intrarenal hemorrhage, tumors or definitive acute infarcts are visualized. Bilateral ocular lens extractions are noted. Focal hyperostosis of the maral dann to a width of 5 mm is noted and is previously noted this finding could represent an en plaque densely calcified meningioma. No associated soft tissue mass is noted. Focal hyperostosis over a 3 mm diameter region is present in the anterior right frontal area (series 7 image 35). Both areas of hyperostosis are unchanged appreciably compared with 07/12/2009. No significant opacification of the visualized paranasal sinuses, mastoid air cells and middle ear cavities is identified. Mild mucosal thickening is noted in the right frontal sinus adjacent to the right frontoethmoidal recess and opacification of a single right anterior ethmoid air cell is noted. CT/CT head/brain wo con IMPRESSION: 1. No acute abnormalities. 2. Marked white matter chronic small vessel ischemic disease and moderate diffuse parenchymal volume loss of the brain unchanged compared with 12/18/2020 and 05/06/2020. 3. 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 No disproportionate focal edema in the adjacent brain parenchyma.
--- NOTE | ~2020-12-28 | XR_ITS ---
EXAMINATION: XR ANKLE, RIGHT CLINICAL INFORMATION: Swelling, rule out injury COMPARISON: 12/19/2020 TECHNIQUE: AP, lateral, and mortise views of the right ankle. FINDINGS: There is redemonstrated moderate degenerative change at the ankle with joint space narrowing and osteophytosis. There is also prominent degenerative change in the proximal foot. No acute fracture is seen. Redemonstrated soft tissue swelling about the ankle. Vascular calcification is noted. XR/XR ankle RT min 3V IMPRESSION: No acute findings identified. Soft tissue swelling. Degenerative changes.
--- NOTE | ~2020-12-28 | XR_ITS ---
EXAMINATION: XR CHEST CLINICAL INFORMATION: Rule out pneumonia COMPARISON: 12/18/2020 TECHNIQUE: Frontal view of the chest was obtained. FINDINGS: No significant abnormality is noted involving the heart, lungs, mediastinum, bony thorax or soft tissues. XR/XR chest 1V IMPRESSION: No acute pulmonary disease. No significant change from prior study.
--- NOTE | 2020-12-28 15:58 | ECG_ITS ---
Test Reason : MEDICAL Blood Pressure : / mmHG Vent. Rate : 093 BPM Atrial Rate : 093 BPM P-R Int : 204 ms QRS Dur : 122 ms QT Int : 394 ms P-R-T Axes : 043 -78 012 degrees QTc Int : 489 ms Normal sinus rhythm Right bundle branch block Left anterior fascicular block Bifascicular block Abnormal ECG When compared with ECG of 18-DEC-2020 13:29, No significant change was found Referred By: Jenny Corbin Electronically Signed By:CAREY MORENO MD
--- NOTE | 2020-12-28 15:59 | ED.PSYCH ---
HPI - Psych General Chief Complaint: General Medical Stated Complaint: PSYCH,INCREASED AGGRESSION Time Seen by Provider: 12/28/20 15:59 Source: patient, family, EMS, RN notes reviewed and old records reviewed Mode of arrival: EMS Limitations: altered mental status History of Present Illness complaint: other (aggressive with staff) Onset (ago): day(s) (today) Duration: resolved prior to arrival History of same: No Relieving factors: none Exacerbating factors: none Context: significant life stressor Associated psychiatric symptoms: none Associated symptoms: denies other symptoms Treatments prior to arrival: none Related Data Home Medications Medication Instructions Recorded Confirmed simvastatin 40 mg PO BEDTIME 05/27/20 12/28/20 quetiapine [Seroquel] 25 mg PO BEDTIME 12/18/20 12/28/20 sertraline [Zoloft] 25 mg PO DAILY 12/18/20 12/28/20 lorazepam 0.5 mg PO BID PRN 12/28/20 12/28/20 lorazepam 1 mg PO BID 12/28/20 12/28/20 metoprolol tartrate 150 mg PO DAILY 12/28/20 12/28/20 Allergies Allergy/AdvReac Type Severity Reaction Status Date / Time bee pollen [BEE STINGS] Allergy Unknown UNKNOWN Verified 05/27/20 11:42 lisinopril [LISINOPRIL] Allergy Unknown FACIAL Verified 05/27/20 11:42 EDEMA Review of Systems Review of Systems: ROS unable to be obtained due to cognitive impairment [facility] Past Medical History Attestation statement: The following information was validated with the patient. Medical History Anxiety Dementia Heterozygous factor V Leiden mutation History of GI bleed History of melanoma Hx of deep venous thrombosis Hypertension Vascular dementia Social History Social History Alcohol intake: current Alcohol intake frequency: 3 or more drinks per day Alcohol type: beer Smoking Status: Former smoker Advance Directives: No Advance Directives Information Provided: No Physical Exam Vital Signs: Vital Signs: Last Vital Signs Temp 97.8 F 12/28/20 21:42 Pulse 91 12/28/20 21:42 Resp 16 12/28/20 21:42 BP 136/65 12/28/20 21:42 Pulse Ox 100 12/28/20 21:42 Body Mass Index 28.0 Appearance: Alert. Oriented X2. No acute distress. Eyes: Pupils equal, round and reactive to light. ENT: Pharynx normal. Neck: Normal inspection. Neck supple. CVS: Normal heart rate and rhythm. Pulses normal. Respiratory: No respiratory distress. Breath sounds normal. Abdomen: Soft and nontender. Skin: Skin warm and dry. Normal skin color. Normal skin turgor. Extremities: No lower extremity edema. No calf ttp Neuro: Oriented X 2. No motor deficit. No sensory deficit. Psych: calm and cooperative Course Course Course Narrative: Patient placed in physician observation at 613pm. The indication for observation is that the patient needs more time to see if their behavioral disturbances improves or they will need halfway placement with BHN and CM input At this time the patient is well developed well nourished, lungs clear, CV RRR, abd nontender, neuro is intact. no response to PO ativan - noted he usually drinks at home before bed which helps, he is not hitting staff but he is attempting to get out of bed, will try olanzapine 2.5mg to see if this helps with behavior control MDM - Psych MDM Narrative Medical decision making narrative: 80 yo male with HTN, frequent falls at home, HLD GERD comes from facility that states he was violent and aggressive to staff and residents they sent a letter stating they would not take him back, he is calm and cooperative on arrival - labs, CXR, UA, CT head for ICH ordered, if negative BHN, CM/PT. Lab Data Result diagrams: 12/28/20 16:40 12/28/20 16:40 Labs: Lab Results 12/28/20 12/28/20 12/28/20 Range/Units 16:39 16:39 16:40 WBC 6.1 (4.8-10.8) X10*3/uL RBC 3.68 L (4.60-5.80) X10*6/uL Hgb 11.9 L (14.0-18.0) g/dl Hct 35.7 L (42-52) % MCV 97.0 (80-98) fL MCH 32.3 (27.0-33.0) pg MCHC 33.3 (31.0-36.0) g/dl RDW 13.0 (11.0-16.0) % Plt Count 200 (160-400) X10*3/uL MPV 8.4 L (9.4-12.4) fL Immature Gran % (Auto) 0.2 (0.0-0.4) % Neut % (Auto) 64.3 (45-73) % Lymph % (Auto) 24.5 (20-40) % [place] % (Auto) 9.0 (2-11) % Eos % (Auto) 1.5 (0-4) % Baso % (Auto) 0.5 (0-2) % Lymph # (Auto) 1.5 (1.2-4.9) X10*3/uL [place] # (Auto) 0.6 (0.1-1.2) X10*3/uL Eos # (Auto) 0.1 (0.0-0.4) X10*3/uL Baso # (Auto) 0.0 (0.0-0.2) X10*3/uL Abs Immat Gran (auto) 0.01 (0.00-0.03) X10*3/uL Absolute Neuts (auto) 3.9 (2.0-8.3) X10*3/uL Absolute Nucleated RBC 0.000 (0.0-0.012) X10*3/uL Nucleated RBC % (auto) 0.0 (0.0-0.2) /100WBC Hold Blue Top Sodium (135-145) mmol/L Potassium (3.3-5.1) mmol/L Chloride (96-108) mmol/L Carbon Dioxide (22-29) mmol/L Anion Gap (12-20) BUN (9-16) mg/dL Creatinine (0.5-1.4) mg/dL Estim Creat Clear Calc Estimated GFR Random Glucose (60-115) mg/dL Calcium (8.4-10.2) mg/dL Magnesium (1.6-2.6) mg/dL Total Bilirubin (0.0-1.0) mg/dL Direct Bilirubin (0.0-0.5) mg/dL AST (5-37) U/L ALT (0-40) U/L Alkaline Phosphatase (39-117) U/L Total Protein (6.5-8.0) g/dL Albumin (3.5-5.0) g/dL TSH (0.32-4.0) uIU/mL Urine Color YELLOW Urine Appearance CLEAR Urine pH 6.0 (5.0-8.0) Ur Specific [place] 1.020 (1.005-1.025) Urine Protein NEG (NEG-TRACE) MG/DL Urine Glucose (UA) NEG (NEG) MG/DL Urine Ketones NEG (NEG) MG/DL Urine Blood NEG (NEG) Urine Nitrite NEG (NEG) Ur Leukocyte Esterase NEG (NEG) COVID-19 (DOMINGO) Negative (Negative) COVID-19 Clin Com See Note 12/28/20 12/28/20 12/28/20 Range/Units 16:40 16:40 16:40 WBC (4.8-10.8) X10*3/uL RBC (4.60-5.80) X10*6/uL Hgb (14.0-18.0) g/dl Hct (42-52) % MCV (80-98) fL MCH (27.0-33.0) pg MCHC (31.0-36.0) g/dl RDW (11.0-16.0) % Plt Count (160-400) X10*3/uL MPV (9.4-12.4) fL Immature Gran % (Auto) (0.0-0.4) % Neut % (Auto) (45-73) % Lymph % (Auto) (20-40) % [place] % (Auto) (2-11) % Eos % (Auto) (0-4) % Baso % (Auto) (0-2) % Lymph # (Auto) (1.2-4.9) X10*3/uL [place] # (Auto) (0.1-1.2) X10*3/uL Eos # (Auto) (0.0-0.4) X10*3/uL Baso # (Auto) (0.0-0.2) X10*3/uL Abs Immat Gran (auto) (0.00-0.03) X10*3/uL Absolute Neuts (auto) (2.0-8.3) X10*3/uL Absolute Nucleated RBC (0.0-0.012) X10*3/uL Nucleated RBC % (auto) (0.0-0.2) /100WBC Hold Blue Top SEE NOTE Sodium 141 (135-145) mmol/L Potassium 4.5 (3.3-5.1) mmol/L Chloride 110 H (96-108) mmol/L Carbon Dioxide 22 (22-29) mmol/L Anion Gap 14 (12-20) BUN 28 H D (9-16) mg/dL Creatinine 1.21 (0.5-1.4) mg/dL Estim Creat Clear Calc 53.8 Estimated GFR 58 Random Glucose 99 (60-115) mg/dL Calcium 8.4 D (8.4-10.2) mg/dL Magnesium 2.0 (1.6-2.6) mg/dL Total Bilirubin 0.7 (0.0-1.0) mg/dL Direct Bilirubin 0.3 (0.0-0.5) mg/dL AST 29 (5-37) U/L ALT 27 (0-40) U/L Alkaline Phosphatase 77 (39-117) U/L Total Protein 6.4 L (6.5-8.0) g/dL Albumin 3.8 (3.5-5.0) g/dL TSH 1.04 (0.32-4.0) uIU/mL Urine Color Urine Appearance Urine pH (5.0-8.0) Ur Specific [place] (1.005-1.025) Urine Protein (NEG-TRACE) MG/DL Urine Glucose (UA) (NEG) MG/DL Urine Ketones (NEG) MG/DL Urine Blood (NEG) Urine Nitrite (NEG) Ur Leukocyte Esterase (NEG) COVID-19 ([place]) (Negative) COVID-19 Clin Com ECG Data Attestation: I personally reviewed and interpreted this ECG as follows: ECG interpretation date: 12/28/20 ECG interpretation time: 16:27 Interpretation: Rate: 93 Rhythm: NSR with 1st degree AVB Springer: left Normal P waves. Normal ANJALI. RBBB ST T wave : no FREEMAN, nonspecific qTC: normal prior studies: no acute ischemia unchanged from prior The study has been interpreted contemporaneously by me. . Discharge Plan Discharge Clinical Impression: Dementia Qualifiers: Dementia type: unspecified type Dementia behavioral disturbance: with behavioral disturbance Qualified Code(s): F03.91 - Unspecified dementia with behavioral disturbance Prescriptions: No Action quetiapine [Seroquel] 25 mg Tablet 25 mg PO BEDTIME RF: 0 sertraline [Zoloft] 25 mg Tablet 25 mg PO DAILY RF: 0 simvastatin 40 mg Tablet 40 mg PO BEDTIME RF: 0 lorazepam 0.5 mg Tablet 0.5 mg PO BID PRN (Reason: Anxiety) RF: 0 metoprolol tartrate 50 mg Tablet 150 mg PO DAILY RF: 0 lorazepam 1 mg Tablet 1 mg PO BID RF: 0
[2020-12-28 16:02] VITALS: BP 124/52; BP 138/70; PULSE 90; PULSE 91; RESP 20; TEMP 37.3; O2SAT 96; BMI 28.0
[2020-12-28 16:29] VITALS: BP 116/52; PULSE 87; RESP 16; TEMP 37; O2SAT 95
[2020-12-28 16:51] LABS: MANUAL DIFF FLAG NO
[2020-12-28 16:57] LABS: Glucose Urine UA NEG (NEG); Leukocyte Esterase Urine NEG (NEG); Nitrite Urine NEG (NEG); Urine Blood NEG (NEG); Urine Ketones NEG (NEG); Urine Protein NEG (NEG-TRACE)
[2020-12-28 17:01] LABS: Appearance Urine CLEAR; Color Urine YELLOW
[2020-12-28 17:04] LABS: Basophils Percent Auto 0.5 % (0-2); Eosinophils Absolute Auto 0.1 X10*3/uL (0.0-0.4); Eosinophils Percent Auto 1.5 % (0-4); Hematocrit 35.7 % (42-52); Hemoglobin 11.9 g/dl (14.0-18.0); Imm Gran Abs Auto 0.01 X10*3/uL (0.00-0.03); Imm Gran Pct Auto 0.2 % (0.0-0.4); Lymphocytes Absolute Auto 1.5 X10*3/uL (1.2-4.9); Lymphocytes Percent Auto 24.5 % (20-40); Mean Corpuscular HGB Conc 33.3 g/dl (31.0-36.0); Mean Corpuscular Hemoglobin 32.3 pg (27.0-33.0); Mean Platelet Volume 8.4 fL (9.4-12.4); Monocytes Absolute Auto 0.6 X10*3/uL (0.1-1.2); Neutrophils Absolute Auto 3.9 X10*3/uL (2.0-8.3); Neutrophils Percent Auto 64.3 % (45-73); Platelet Count 200 X10*3/uL (160-400); Red Blood Count 3.68 X10*6/uL (4.60-5.80); White Blood Count 6.1 X10*3/uL (4.8-10.8)
[2020-12-28 17:10] LABS: Alanine Aminotransferase 27 U/L (0-40); Albumin Level 3.8 g/dL (3.5-5.0); Alkaline Phosphatase 77 U/L (39-117); Anion Gap 14 (12-20); Aspartate Amino Transferase 29 U/L (5-37); Bilirubin Direct 0.3 mg/dL (0.0-0.5); Bilirubin Total 0.7 mg/dL (0.0-1.0); Blood Urea Nitrogen 28 mg/dL (9-16); Calcium 8.4 mg/dL (8.4-10.2); Carbon Dioxide 22 mmol/L (22-29); Chloride 110 mmol/L (96-108); Creatinine Clr Calc Pharmacy 53.8; Estimated Glomerular Filt Rate 58; Glucose Random 99 mg/dL (60-115); Potassium 4.5 mmol/L (3.3-5.1); Sodium 141 mmol/L (135-145); Total Protein 6.4 g/dL (6.5-8.0)
[2020-12-28 17:11] LABS: COVID-19 Test Negative (Negative); IDNOW Serial# 9DD0AD1C
[2020-12-28 17:30] LABS: Thyroid Stimulating Hormone 1.04 uIU/mL (0.32-4.0)
--- NOTE | 2020-12-28 19:38 | PC.NURSE ---
PT AMBULATORY TO BATHROOM WITH USE OF WALKER.
[2020-12-28 19:51] VITALS: BP 117/65; PULSE 90; RESP 18; TEMP 36.4; O2SAT 96
[2020-12-28] MEDS: LORazepam 0.5 MG TABLET PO (19:55)
[2020-12-28] MEDS: QUEtiapine Fumarate 25 MG TABLET PO (19:56)
[2020-12-28] MEDS: Atorvastatin Calcium 20 MG TABLET PO (19:56)
--- NOTE | 2020-12-28 20:04 | PC.NURSE ---
PATIENT HAD LARGE BOWEL MOVEMENT .
[2020-12-28 21:42] VITALS: BP 136/65; PULSE 91; RESP 16; TEMP 36.6; O2SAT 100
[2020-12-28] MEDS: LORazepam 1 MG TABLET PO (23:45)
[2020-12-29] VITALS (12 sets, daily range): BP systolic 113–150; BP diastolic 69–93; PULSE 79–100; RESP 16–18; TEMP 36.3–36.6; O2SAT 95–99
[2020-12-29] MEDS: OLANZapine 2.5 MG TABLET PO ×2 (00:54→02:55)
--- NOTE | 2020-12-29 00:57 | PC.NURSE ---
pt needs 1:1 sitter for safety to prevent a fall. pt has a hospital bed for comfort. pt pleasantly confused, redirectible.
--- NOTE | 2020-12-29 03:11 | PC.NURSE ---
PT MEDICATED EVERY FEW HOURS TO WOOL TAMPER IN SLEEP. PT STILL WIDE AWAKE AND TRYING TO STAND. PT PLEASANTLY CONFUSED.
--- NOTE | 2020-12-29 03:26 | PC.NURSE ---
PT HAS SWELLING TO MEDIAL SIDE OF RIGHT ANKLE, INCREASED SINCE ARRIVAL TO ER. PT HAS BEEN AMBULATORY WITH NO COMPLAINT OF PAIN. NO EVIDENCE OF BRUISING OR TRAUMA. ISOLATED TO JOINT.
[2020-12-29] MEDS: Sertraline HCL 25 MG TABLET PO (08:59)
[2020-12-29] MEDS: Metoprolol Tartrate 50 MG TABLET 150 MG PO (08:59)
--- NOTE | 2020-12-29 10:16 | MHC.CARE ---
CARE Team spoke with nursing staff, since arrival Pt has been cooperative and medication complaint. Pt has not displayed aggressive behaviors and redirectable if needed. CARE Team spoke with Pts Laurie, who reported Pt was recently placed at [facility]. Laurie reported his reported ?aggression? there is very uncharacteristic of him. She feels that it is mostly in the context of how he was approach, the new location and his dementia. She reported no significant history of aggression, ?he made a fist in my direction one time?. She report they have been together for 46 years. She reports she has been his primary caregiver with his dementia but feels he may benefit from a different setting at this time and has been visiting placements for him. Pt is currently prescribed his medication through his PCP Dr. Tesfaye- she does feel that his Ativan may cause adverse affects?. She reported at baseline Pt does not sleep a lot secondary to his service which the sleep pattern has followed him through his life. CARE Team recommends supports from CM for placement post discharge and psychiatry consult to review current medication regime and recommendations. Hospital provider and Pts is in agreement with plan of care.
--- NOTE | 2020-12-29 10:45 | MHC.CM.PN ---
EMR REVIEWED, PT RETURNED FROM [facility] W/INCREASED AGRRESSION, PT HAS VASCULAR DEMENTIA, PER PT'S ALBERTINA [phone] SHE DOES NOT WANT HIM TO RETURN TO [facility] AND [facility]QUESTED REFERRALS FOR [facility] AND [facility], PT'S DID ALSO LIST THE [facility] AND THE [facility] HOWEVER THOSE ARE ASSISTED LIVING FACILITIES, PT'S WAS ALSO INTERESTED IN A [facility] BED FOR MED MANAGEMENT AND REPORTED SHE HAD TAKEN HIM OFF [facility] WHICH SEEMED TO MAKE HIM WORSE, CARE TEAM AWARE AND CM DID COMMUNICATE PT'S 'S INTEREST IN A [facility] BED. CM DID DISCUSS LTC WITH PT'S DUE TO HER NOT BEING ABLE TO TAKE CARE OF HIM ANYMORE AND [employer] [facility]TC YARELI HOWEVER AT THIS TIME FAMILY IS WILLING TO PRIVATE PAY FOR CARE IF NEEDED, CM WILL ATTEMPT TO GET PT IN TO STR, PT EVAL WAS ORDERED AFTER PT WAS GONE FOR THE DAY AND WILL BE COMPLETED Wednesday12/30/20. CM WILL CONT TO FOLLOW D/C NEEDS. D/C PLAN: STR VS LTC, BLS TRANSPORT.
--- NOTE | 2020-12-29 15:11 | P.CNPS_ITS ---
History of Present Illness Date of Service: 12/29/20 Chief Complaint: PSYCH,INCREASED AGGRESSION Reason for Consult: Psychiatry asked to evaluate medications for agitation and aggression Requesting physician: Jenny Corbin Discussed with referring provider: Yes Sources of Information: patient interviewed, chart reviewed and crisis/core team assessment reviewed HPI Narrative: pt is a 80 yo male with diagnosis of dementia presenting with onset of aggression and agitation. Glucose = 99 UA negtive and no sign of UTI. EKG reviewed. chest xray negative . Past Psychiatric History: On Ativan and Seroquel from PCP for anxiety and agitation Medical Evaluation Reviewed: Yes Glucose = 99 UA negtive and no sign of UTI. EKG reviewed. chest xray negative . diagnoses: Anxiety Dementia Heterozygous factor V Leiden mutation History of GI bleed History of melanoma Hx of deep venous thrombosis Hypertension Vascular dementia Personal & Social History: recently placed at [facility] has been exploring alternative intermediate card tender care settings Review of Systems Review of Systems reviewed medical note Yes Other (limted due to mental status ) [facility] Medical History Anxiety Dementia Heterozygous factor V Leiden mutation History of GI bleed History of melanoma Hx of deep venous thrombosis Hypertension Vascular dementia Diagnostics Vital Signs (24Hr): Vital Signs - 24 hr 12/28/20 16:02 12/28/20 16:29 12/28/20 19:51 Temperature 99.1 F 98.6 F 97.5 F Pulse Rate 91 87 90 Respiratory Rate 20 16 18 Blood Pressure 124/52 L 116/52 L 117/65 Pulse Oximetry 96 95 96 12/28/20 21:42 12/29/20 00:52 12/29/20 06:00 Temperature 97.8 F 97.8 F Pulse Rate 91 100 89 Respiratory Rate 16 16 18 Blood Pressure 136/65 131/83 150/79 H Pulse Oximetry 100 95 98 12/29/20 08:18 12/29/20 08:59 Temperature Pulse Rate 79 84 Respiratory Rate 18 Blood Pressure 139/93 H 139/93 H Pulse Oximetry 99 Body Mass Index 28.0 Labs Results: 12/28/20 16:40 12/28/20 16:40 Labs: Laboratory Results - last 48 hr 12/28/20 12/28/20 12/28/20 16:39 16:39 16:40 WBC 6.1 RBC 3.68 L Hgb 11.9 L Hct 35.7 L MCV 97.0 MCH 32.3 MCHC 33.3 RDW 13.0 Plt Count 200 MPV 8.4 L Immature Gran % (Auto) 0.2 Neut % (Auto) 64.3 Lymph % (Auto) 24.5 [place] % (Auto) 9.0 Eos % (Auto) 1.5 Baso % (Auto) 0.5 Lymph # (Auto) 1.5 [place] # (Auto) 0.6 Eos # (Auto) 0.1 Baso # (Auto) 0.0 Abs Immat Gran (auto) 0.01 Absolute Neuts (auto) 3.9 Absolute Nucleated RBC 0.000 Nucleated RBC % (auto) 0.0 Hold Blue Top Sodium Potassium Chloride Carbon Dioxide Anion Gap BUN Creatinine Estim Creat Clear Calc Estimated GFR Random Glucose Calcium Magnesium Total Bilirubin Direct Bilirubin AST ALT Alkaline Phosphatase Total Protein Albumin TSH Urine Color YELLOW Urine Appearance CLEAR Urine pH 6.0 Ur Specific [place] 1.020 Urine Protein NEG Urine Glucose (UA) NEG Urine Ketones NEG Urine Blood NEG Urine Nitrite NEG Ur Leukocyte Esterase NEG COVID-19 ([facility]) Negative COVID-19 Clin Com See Note 12/28/20 12/28/20 12/28/20 16:40 16:40 16:40 WBC RBC Hgb Hct MCV MCH MCHC RDW Plt Count MPV Immature Gran % (Auto) Neut % (Auto) Lymph % (Auto) [place] % (Auto) Eos % (Auto) Baso % (Auto) Lymph # (Auto) [place] # (Auto) Eos # (Auto) Baso # (Auto) Abs Immat Gran (auto) Absolute Neuts (auto) Absolute Nucleated RBC Nucleated RBC % (auto) Hold Blue Top SEE NOTE Sodium 141 Potassium 4.5 Chloride 110 H Carbon Dioxide 22 Anion Gap 14 BUN 28 H D Creatinine 1.21 Estim Creat Clear Calc 53.8 Estimated GFR 58 Random Glucose 99 Calcium 8.4 D Magnesium 2.0 Total Bilirubin 0.7 Direct Bilirubin 0.3 AST 29 ALT 27 Alkaline Phosphatase 77 Total Protein 6.4 L Albumin 3.8 TSH 1.04 Urine Color Urine Appearance Urine pH Ur Specific [place] Urine Protein Urine Glucose (UA) Urine Ketones Urine Blood Urine Nitrite Ur Leukocyte Esterase COVID-19 ([facility]) COVID-19 Clin Com Imaging Radiology Impressions: ITS Impressions Chest X-Ray 12/28/20 15:59 IMPRESSION: No acute pulmonary disease. No significant change from prior study. Head CT 12/28/20 15:59 IMPRESSION: 1. No acute abnormalities. 2. Marked white matter chronic small vessel ischemic disease and moderate diffuse parenchymal volume loss of the brain unchanged compared with 12/18/2020 and 05/06/2020. 3. 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 No disproportionate focal edema in the adjacent brain parenchyma. Ankle X-Ray 12/29/20 02:52 IMPRESSION: No acute findings identified. Soft tissue swelling. Degenerative changes. Mental Status Exam Mental Status Exam Narrative: pt not oriented to person, place, time, or situation Patient Appearance: Disheveled (hospital gown) Level of Consciousness: Restless Patient Behavior: Restless, Distractible, Uncooperative and Poor Eye Contact Behavior Comments: dismissive, irritable Mood Description: Apprehensive Affect Description: Angry (mildly irritable ) Patient Cognition Impaired: Yes Ability to Follow Directions: Poor Speech Pattern: Perseverating, Difficulty Finding Words, Delayed and Poor Articulation Memory Description: Remote Impaired, Immediate Impaired and [employer] Impaired Thought Process: Incoherent and Confusion Thought Content: positive for Disorganized Abnormal Motor Activity Signs and Symptoms: Restlessness Judgement: Poor Medications Medications Current Medications Generic Name Dose Route Start Last Admin Trade Name Freq PRN Reason Stop Dose Admin Atorvastatin Calcium 20 mg 12/28/20 21:00 12/28/20 19:56 Atorvastatin Calcium 20 Mg Tablet PO 20 mg BEDTIME LUCAS Administration Lorazepam 0.5 mg 12/28/20 19:24 12/28/20 19:55 Lorazepam 0.5 Mg Tablet PO 0.5 mg BID PRN Administration Anxiety Metoprolol Tartrate 150 mg 12/29/20 09:00 12/29/20 08:59 Metoprolol Tartrate 50 Mg Tablet PO 150 mg DAILY LUCAS Administration Protocol Pharmacy Consult 1 each 12/28/20 16:12 Consult Rx Perform Med Rec MISCELLANE ONCE PRN Consult order Quetiapine Fumarate 25 mg 12/28/20 21:00 12/28/20 19:56 Quetiapine Fumarate 25 Mg Tablet PO 25 mg BEDTIME LUCAS Administration Sertraline HCl 25 mg 12/29/20 09:00 12/29/20 08:59 Sertraline Hcl 25 Mg Tablet PO 25 mg DAILY LUCAS Administration Allergies Allergies Allergy/AdvReac Type Severity Reaction Status Date / Time bee pollen [BEE STINGS] Allergy Unknown UNKNOWN Verified 05/27/20 11:42 lisinopril [LISINOPRIL] Allergy Unknown FACIAL Verified 05/27/20 11:42 EDEMA Assessment & Plan Assessment & Plan (1) Dementia: Qualifiers: Dementia behavioral disturbance: with behavioral disturbance Dementia type: unspecified type Qualified Code(s): F03.91 - Unspecified dementia with behavioral disturbance Status: Acute Code(s): F03.90 - Unspecified dementia without behavioral disturbance (2) Gross hematuria: Status: Acute Code(s): R31.0 - Gross hematuria (3) History of DVT (deep vein thrombosis): Status: Acute Code(s): Z86.718 - Personal history of other venous thrombosis and embolism Recommendations: monitor for ETOH withdrawal if using alcohol 3 drinks per day obtain folate level, b12 level and thiamine level which can be low due to daily etoh use. replace or add b12, folic acid and or thiamine supplements as needed utilize Ativan prn for signs of etoh withdrawal: sweating, elevated BP and Pulse, tremor, confusion, hallucinations, seizures increase Seroquel at HS to 37.5 - 50 mg as tolerated- may help with sleep and reduce agitation may switch to Seroquel XR if needed consider adding Seroquel 12.5 mg-25 mg in am May utilize lamictal 12.5 mg daily in addition to Seroquel for mood stability (unlike depakote, lamictal does not require frequent blood work) Lamictal could also be utilized in place of zoloft which has increased risk of GI bleeding If utilize lamictal monitor for new onset rash Greater than 50% of the session was spent on counseling and/or coordination of care Informed Consent: does not understand
[2020-12-29] MEDS: QUEtiapine Fumarate 25 MG TABLET PO (20:15)
[2020-12-29] MEDS: Melatonin 3 MG TABLET 6 MG PO (20:15)
[2020-12-29] MEDS: Atorvastatin Calcium 20 MG TABLET PO (20:15)
--- NOTE | 2020-12-29 20:45 | PC.NURSE ---
PT COMBATIVE, CONTINUOUSLY ATTEMPTING TO GET OUT OF BED, MULTIPLE ATTEMPTS TO KICK AND PUNCH STAFF, WILL CONTINUE TO ASSESS AND MONITOR.
[2020-12-29] MEDS: OLANZapine 10 MG VIAL 5 MG IM (20:53)
[2020-12-30] VITALS (9 sets, daily range): BP systolic 93–144; BP diastolic 53–74; PULSE 83–108; RESP 16–20; TEMP 36.7; O2SAT 96–99
--- NOTE | 2020-12-30 03:37 | PC.NURSE ---
TAKING OVER CARE FOR THIS PATIENT AT THIS TIME. PATIENT RESTING WITH EYES CLOSED, NO DISTRESS NOTED. AWAITING PT EVALUATION IN THE AM FOR PLACEMENT WITH CASE MANAGEMENT.
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
--- NOTE | 2020-12-30 07:44 | PC.NURSE ---
pt redirectable to comode. linen and clothing changed. multiple assist.
--- NOTE | 2020-12-30 09:06 | MHC.CM.ED ---
Patient remains in ER. Physical therapy completed. long term care pharmacist care is recommended. Anticipate patient will be difficult to place due to behavior. Referral broadcasted within 20 miles of patient's home to all facilities that have locked dementia units. Psych has already seen patient. Contribute patient's behaviors to advanced dementia and has made some medication recommendations. Continue to monitor for d/c needs.
--- NOTE | 2020-12-30 10:52 | MHC.CM.ED ---
12 referrals sent in [facility] [place]. No bed offers made at this time. Spoke with patient's /HCP Laurie via telephone at [phone]. Laurie is very upset that she is not able to care for her but knows he will need 24 hour care. T/W explained physical therapy has recommended LTC. Assisted living with dementia units discussed. Lucia from [facility] will reach out to Laurie to see if this is an option for patient's care. Continue to monitor for d/c needs.
--- NOTE | 2020-12-30 13:30 | PC.NURSE ---
pt continues to refuse meds
--- NOTE | 2020-12-30 15:47 | MHC.CM.ED ---
Received notification from Zenobia at [facility] that their nurse will not be able to review clinical before tomorrow. Spoke with Laurie via telephone at [phone] to relay this information. Laurie verbalized understanding and is on her way to see patient. Continue to monitor for d/c needs.
--- NOTE | 2020-12-30 16:21 | PC.NURSE ---
at bedside, this rn spoke with pa, okay to give pm seroquel dose now. pt took pill with no difficulty.
[2020-12-30] MEDS: QUEtiapine Fumarate 50 MG TABLET PO ×2 (16:22→20:53)
--- NOTE | 2020-12-30 18:10 | MHC.CM.ED ---
CM met with pt /HCP Laurie. CM listened to pt discuss her husbands can and decline at the facility, including increased agitation, aggression and hallucinations. Matthew had shared with CM on previous visit that her had always been a drinker in his life and that prior to going to [facility], pt drank 6 beers/day. When asked, Matthew tells CM that Dr. Hook ordered a beer a day for her , but that the nurse stated he took too much medication to have a daily beer. ? alcohol withdrawl. Pt does have vascular dementia and was in a new environment. Above shared with Loretta COPELAND. Pt did have a psych consult, who made medication adjustments and did not recommend [facility]/psych placement. [facility] is reviewing and Matthew is aware. Matthew spoke with the [facility] and questioned if they could come in to evaluate her . Matthew aware that they are welcome to come in. CHARLIE also gave Matthew financial counselor brochure. Matthew will call them tomorrow to discuss future finances. Matthew states she is able to private pay for a short time. CM allowed time to vent and offered support. CM will follow for d/c needs.
[2020-12-30] MEDS: Atorvastatin Calcium 20 MG TABLET PO (20:52)
[2020-12-30] MEDS: Melatonin 3 MG TABLET 6 MG PO (20:54)
[2020-12-31 02:06] VITALS: BP 120/57; PULSE 97; RESP 18; O2SAT 99
[2020-12-31 07:19] VITALS: BP 135/65; PULSE 92; RESP 15; O2SAT 95
[2020-12-31 10:11] VITALS: BP 136/88; PULSE 98
[2020-12-31] MEDS: QUEtiapine Fumarate 25 MG TABLET PO (10:11)
[2020-12-31] MEDS: Metoprolol Tartrate 50 MG TABLET 150 MG PO (10:11)
[2020-12-31] MEDS: Sertraline HCL 25 MG TABLET PO (10:12)
--- NOTE | 2020-12-31 10:58 | MHC.CM.ED ---
Patient remains in ER. Per , Laurie, [facility] will be at the ER at 1pm to see patient. Continue to monitor for d/c needs.
--- NOTE | 2020-12-31 20:38 | MHC.CM.ED ---
CM spoke with pt /HCP Matthew. Reported that per RN, a liason from the [facility] did come in to see her , but they did not speak with case management. Cm shared the psychiatric consult notes with , as she was questioning if he should be admitted to [facility]/psych to have his medications regulated. Did explain that medication adjustments were made in consult. expresses frustration with her husbands rapid decline and confusion. States she feels lost and is unsure what steps to take. States that her did have ETOH withdrawals issues when he was drinking scotch and rum, but not with beer, although agrees he may have had some withdrawals in the detention. States he hasn't had a beer in 2 weeks. Matthew is concerned about her husbands word Salad and confusion. Will speak with provider. CM to follow for d/c needs.
[2020-12-31] MEDS: Atorvastatin Calcium 20 MG TABLET PO (21:38)
[2020-12-31] MEDS: Melatonin 3 MG TABLET 6 MG PO (21:38)
[2020-12-31 22:00] VITALS: BP 129/86; PULSE 98; RESP 15; TEMP 36.7; O2SAT 95
[2021-01-01 06:00] VITALS: RESP 15; O2SAT 95
--- NOTE | 2021-01-01 08:43 | MHC.CM.ED ---
Received notification from DINORAH Chery that patient will be admitted to the hospital today for surgery tomorrow. [facility]ibel [facility] aware and will follow for d/c needs.
[2021-01-01 10:33] VITALS: PULSE 98; O2SAT 95
[2021-01-01 11:35] VITALS: BP 124/64; PULSE 88
[2021-01-01] MEDS: Metoprolol Tartrate 50 MG TABLET 150 MG PO (11:35)
[2021-01-01] MEDS: QUEtiapine Fumarate 25 MG TABLET PO (11:36)
[2021-01-01] MEDS: Sertraline HCL 25 MG TABLET PO (11:36)
--- NOTE | 2021-01-01 13:36 | MHC.CM.ED ---
Per Zenobia at [facility], their nurse does not feel comfortable accepting patient at this time. Referrals rebroadcasted to all [facility] facilities with locked dementia units. Continue to monitor for d/c needs.
[2021-01-01 13:42] VITALS: BP 111/66; PULSE 86; RESP 15; O2SAT 95
--- NOTE | 2021-01-01 14:56 | MHC.CM.ED ---
Per Loretta at [facility] nursing, patient is denied from all [place] facilities. Called [facility] at , Matthew's request. Left message requesting return telephone call. Continue to monitor for d/c needs.
--- NOTE | 2021-01-01 15:12 | MHC.CM.ED ---
Received return telephone call from Sarah at [facility]. They're looking for more clinical info on patient. Clinical information provided via fax [phone].
--- NOTE | 2021-01-01 15:50 | PC.NURSE ---
confirmation made to m5 regarding psych consult. per saud, no eval today because providers leave at 1630.
--- NOTE | 2021-01-01 16:13 | P.EN_ITS ---
Event Note Date of Service: 01/01/21 Event Note: job specification writer asked to follow up on patient following weekend consult for some continued intermittent agitation. Injection Molding Operator reviewed chart and discussed case with Miri Hilliard who is covering patient. For now agreed to try Seroquel prn that may be used prophylactically if patient exhibits pattern of Sundowning. This medication was reportedly started by patients PCP; if not effective, may consider switching pt to low dose of risperdal or zyprexa. Will see patient tomorrow and see if history can be obtained. Given age, not sure how will ativan is serving him, but not sure how long he's been on it and will leave as is for now. Pt is also waiting for bed placement in [facility] setting.
--- NOTE | 2021-01-01 16:41 | PC.NURSE ---
PATIENT REFUSED BLOOD DRAW
[2021-01-01 18:10] LABS: Folate 11.7 ng/mL (> or = 4.0); Vitamin B12 1534 pg/mL (200-900)
[2021-01-01] MEDS: LORazepam 0.5 MG TABLET PO (19:56)
[2021-01-01] MEDS: Atorvastatin Calcium 20 MG TABLET PO (19:56)
[2021-01-01] MEDS: Melatonin 3 MG TABLET 6 MG PO (19:56)
[2021-01-01] MEDS: QUEtiapine Fumarate 50 MG TABLET PO (19:56)
[2021-01-01 23:06] VITALS: BP 132/69; PULSE 93; RESP 16; TEMP 36.7; O2SAT 95
--- NOTE | 2021-01-02 04:58 | PC.NURSE ---
PT AMBULATORY TO BATHROOM, ASSIST OF WALKER AND 2 STAFF MEMBERS. PT UNSTEADY AT TIMES. PT BACK IN BED, ENJOYING APPLE JUICE AND CRACKERS.
[2021-01-02 07:51] VITALS: BP 132/70; PULSE 93; RESP 16; O2SAT 98
--- NOTE | 2021-01-02 08:00 | PC.NURSE ---
report taken from Rosio WALSH. vitals taken, pt resting in bed, vitals taken. pt ate breakfast. he has 1:1 staff by his side. pt pleasantly confused but in behavioral control at this time
[2021-01-02 10:07] VITALS: BP 154/76; PULSE 100
[2021-01-02] MEDS: Sertraline HCL 25 MG TABLET PO (10:07)
[2021-01-02] MEDS: Metoprolol Tartrate 50 MG TABLET 150 MG PO (10:07)
[2021-01-02] MEDS: QUEtiapine Fumarate 25 MG TABLET PO ×2 (10:08→17:58)
[2021-01-02 10:13] VITALS: BP 154/76; PULSE 100; RESP 16; O2SAT 98
--- NOTE | 2021-01-02 14:29 | MHC.CM.ED ---
Received telephone call from Dr Costello gathering info about patient. Clinical info and , Matthew's contact info provided. Dr Costello will speak with and then meet with patient. Dr Costello will also call Matthew after meeting with patient. Continue to monitor for d/c needs.
[2021-01-02 15:21] VITALS: BP 110/62; PULSE 81; RESP 17; TEMP 36.6; O2SAT 99
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
[2021-01-02] MEDS: LORazepam 0.5 MG TABLET PO (17:58)
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
[2021-01-02 20:43] VITALS: BP 111/64; PULSE 82; RESP 16; TEMP 36.4; O2SAT 95
[2021-01-02 23:25] VITALS: BP 115/57; PULSE 97; RESP 16; TEMP 36.6; O2SAT 98
[2021-01-02] MEDS: Melatonin 3 MG TABLET 6 MG PO (23:36)
[2021-01-02] MEDS: Atorvastatin Calcium 20 MG TABLET PO (23:36)
[2021-01-02] MEDS: QUEtiapine Fumarate 50 MG TABLET PO (23:36)
[2021-01-03] VITALS (10 sets, daily range): BP systolic 111–135; BP diastolic 61–73; PULSE 63–107; RESP 16–20; O2SAT 96–99
--- NOTE | 2021-01-03 06:42 | PC.NURSE ---
Pt sleeping throughout the night with sitter at bedside in NAD. Pt ambulating to and from bathroom with walker and sitter without difficulty. Pt calm, cooperative and pleasant throughout the evening. Sitter at bedside. Continue to monitor.
--- NOTE | 2021-01-03 07:00 | PC.NURSE ---
Patient is sitting up on side of bed eating breakfast currently. pt is in no acute distress and denies any pain.
[2021-01-03] MEDS: Metoprolol Tartrate 50 MG TABLET 150 MG PO (08:34)
[2021-01-03] MEDS: Sertraline HCL 25 MG TABLET PO (08:36)
[2021-01-03] MEDS: QUEtiapine Fumarate 25 MG TABLET PO (08:36)
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
--- NOTE | 2021-01-03 11:35 | PC.NURSE ---
Patient is lying in bed sleeping peacefully. Respirations are even and nonlabored
--- NOTE | 2021-01-03 14:40 | PC.NURSE ---
Patient is asleep in bed in no distress. respirations are even and nonlabored. Son, Otis, is at bedside
--- NOTE | 2021-01-03 15:04 | MHC.CM.ED ---
Patient remains in ER. Still waiting for Psych consult recommendations. Continue to monitor for d/c needs.
--- NOTE | 2021-01-03 17:00 | PC.NURSE ---
is at bedside. Pt is alert oriented andinno distress.
--- NOTE | 2021-01-03 18:00 | PC.NURSE ---
Patient sitting up in bed eating supper in no distress
--- NOTE | 2021-01-03 20:32 | MHC.CARE ---
Evaluated by CARE team, dispo for geriatric psych placement.
[2021-01-03] MEDS: Haloperidol Lactate 5 MG/ML VIAL IM (20:55)
[2021-01-03] MEDS: diphenhydrAMINE HCL 50 MG/ML VIAL 25 MG IM (20:56)
[2021-01-03] MEDS: LORazepam 2 MG/ML VIAL IM (20:56)
--- NOTE | 2021-01-03 21:32 | PC.NURSE ---
pt became very loud uncooperative with staff states he will harm them, pt refusing evening medications. security called and pt given haldol, ativan and benadryl im at 2100. pt at this time is still refusing vitals, pt has sitter present and monitored. rr remain even and regular. pt has stopped yelling out at this time but still refusing care and medications.
[2021-01-04 03:03] VITALS: RESP 16
--- NOTE | 2021-01-04 03:04 | PC.NURSE ---
pt is sleeping sitter present. pt rr even and reg. no s/s/ of distress noted.
[2021-01-04 07:53] VITALS: BP 117/59; PULSE 115; RESP 18; O2SAT 98
[2021-01-04 07:58] VITALS: BP 117/59; PULSE 115
[2021-01-04] MEDS: QUEtiapine Fumarate 25 MG TABLET PO ×3 (07:58→19:05)
[2021-01-04] MEDS: Metoprolol Tartrate 50 MG TABLET 150 MG PO (07:58)
[2021-01-04] MEDS: Sertraline HCL 25 MG TABLET PO (07:58)
--- NOTE | 2021-01-04 09:01 | PC.NURSE ---
pt is calm and cooperative this morning, took medications, ate breakfast, needs being met
[2021-01-04] MEDS: LORazepam 0.5 MG TABLET PO ×2 (16:02→19:05)
--- NOTE | 2021-01-04 16:02 | PC.NURSE ---
Pt agitated, attempting to get oob. Pt redirected back into bed, medicated per emar when offered medications in chocolate icecream. Pt resting in stretcher at this time.
[2021-01-04 16:42] VITALS: BP 103/56; PULSE 98; RESP 18; TEMP 36.7; O2SAT 97
[2021-01-04] MEDS: QUEtiapine Fumarate 50 MG TABLET PO (21:09)
[2021-01-04] MEDS: Atorvastatin Calcium 20 MG TABLET PO (21:10)
[2021-01-04] MEDS: Melatonin 3 MG TABLET 6 MG PO (21:10)
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
[2021-01-04 23:25] VITALS: BP 141/77; PULSE 98; RESP 15; O2SAT 97
--- NOTE | 2021-01-04 23:33 | PC.NURSE ---
Medication found in patient's bed. Able to get patient to take his nighttime medication with some persistence.
[2021-01-05 05:58] VITALS: BP 124/76; PULSE 80; RESP 18; O2SAT 99
[2021-01-05 06:00] VITALS: BP 135/78; PULSE 80; RESP 18; O2SAT 99
[2021-01-05 07:29] VITALS: BP 144/58; PULSE 102; RESP 16; TEMP 36.6; O2SAT 99
--- NOTE | 2021-01-05 07:30 | PC.NURSE ---
pt is alert no sob/kvng noted skin pink warm dry speaks in full sentences. pt voided on commode.
[2021-01-05 08:13] VITALS: BP 114/53; PULSE 90; RESP 15; O2SAT 98
[2021-01-05 08:15] VITALS: BP 114/53; PULSE 106
[2021-01-05] MEDS: Metoprolol Tartrate 50 MG TABLET 150 MG PO (08:15)
[2021-01-05] MEDS: Sertraline HCL 25 MG TABLET PO (08:16)
[2021-01-05] MEDS: QUEtiapine Fumarate 25 MG TABLET PO ×3 (08:16→10:31)
--- NOTE | 2021-01-05 08:21 | PC.NURSE ---
pt is a/o x 1, did not know the year or where he is. pt was verbally redirected. pt is calm/co-op at this time. sitter remains at bedside.
--- NOTE | 2021-01-05 09:30 | PC.NURSE ---
pt's maximilian ([phone]) called [facility] [place] and updated on pt status.
--- NOTE | 2021-01-05 10:28 | PC.NURSE ---
pt is anxious and slighly agitated to be medicated.
--- NOTE | 2021-01-05 10:29 | PC.NURSE ---
pt amb (i) gait steady 20ft with walker and contact guard.
[2021-01-05] MEDS: LORazepam 0.5 MG TABLET PO ×2 (10:30→19:23)
[2021-01-05 10:43] VITALS: BP 106/68; PULSE 97; RESP 15; TEMP 36.6; O2SAT 97
--- NOTE | 2021-01-05 11:21 | PC.NURSE ---
Patient agitated, ambulating with walker with two person standby assist. Patient confused and slightly unsteady on his feet. With help of sitter and this RN patient assisted back into the hospital bed. Confused and asking for his , will monitor for increasing agitation
--- NOTE | 2021-01-05 14:44 | PC.NURSE ---
THIS RN PRESENT TO ASSIST PATIENT TO BATHROOM. AT FIRST IT APPEARED THAT PATIENT NEEDED TO URINATE BUT COULDN'T VOICE NEED TO URINATE. WHEN WALKED TO BATHROOM NEEDED LOTS OF REDIRECTION TO COORDINATE TO SIT ON TOILET. HAD LARGE VOID AND THEN STRAINED TO HAVE bm BUT DIDN'T. DID PASS GAS. PT WAS STEADY ON FEET BUT NEEDED 2 PERSON ASSIST TO MAINTAIN FOCUS AND ORGANIZE MOVEMENT. THIS RN TO DISCUSS BOWEL REGIMINE WITH PROVIDER. IS PRESENT FOR VISIT. CARE TEAM HAS COME FOR MENTAL STATUS UPDATE. BEDSEARCH CONTINUES.
[2021-01-05] MEDS: Magnesium Citrate 300 ML SOLUTION PO (15:43)
--- NOTE | 2021-01-05 15:55 | PC.NURSE ---
sleeping in recliner. NAD. sitter at bedside.
[2021-01-05] MEDS: Atorvastatin Calcium 20 MG TABLET PO (19:23)
[2021-01-05] MEDS: Melatonin 3 MG TABLET 6 MG PO (19:23)
[2021-01-05] MEDS: QUEtiapine Fumarate 50 MG TABLET PO (19:23)
[2021-01-06] VITALS (7 sets, daily range): BP systolic 102–125; BP diastolic 58–75; PULSE 83–97; RESP 16–20; TEMP 36.4; O2SAT 95–98
--- NOTE | 2021-01-06 03:43 | PC.NURSE ---
Pt ambulating to the bathroom with his walker and the sitter with a steady gait. Pt having multiple large BMs, formed brown stool. Pt requesting to brush his teeth, provided with a toothbrush and toothpaste. Pt assisted back into bed into POC. VSS. Continue to monitor.
--- NOTE | 2021-01-06 07:01 | PC.NURSE ---
Patient is up in recliner at bedside asleep in no acute distress. Respirations are even and nonlabored.
--- NOTE | 2021-01-06 07:49 | PC.NURSE ---
Patient is awake and alert. Patient denies any pain currently. Breakfast tray given to patient.
[2021-01-06] MEDS: QUEtiapine Fumarate 25 MG TABLET PO (10:34)
[2021-01-06] MEDS: Sertraline HCL 25 MG TABLET PO (10:34)
[2021-01-06] MEDS: Metoprolol Tartrate 50 MG TABLET 150 MG PO (10:34)
--- NOTE | 2021-01-06 10:46 | MHC.CARE ---
CARE Team conducted a state wide bed search - no current beds available. CARE Team to completed [facility].
--- NOTE | 2021-01-06 10:46 | MHC.CARE ---
CARE Team conducted a state wide bed search - no current beds available. [facility] accepted referral. CARE Team completed [facility].
--- NOTE | 2021-01-06 11:00 | PC.NURSE ---
Patient back in bed sitting up looking around. No acute distress noted. Pt offered water to drink.
--- NOTE | 2021-01-06 12:15 | PC.NURSE ---
Patient is asleep in bed in no distress
--- NOTE | 2021-01-06 13:50 | PC.NURSE ---
Patient sitting up eating lunch.
--- NOTE | 2021-01-06 15:04 | PC.NURSE ---
Patient sitting up in bed in no distress. Pt is calm and cooperative with staff.
--- NOTE | 2021-01-06 18:37 | PC.NURSE ---
Patient is sitting up in bed in no distress. Pt is alert and watching tv. pt offered supper tray but states he is not ready to eat. Pt did take a few swallows of water.
[2021-01-06] MEDS: Melatonin 3 MG TABLET 6 MG PO (21:02)
[2021-01-06] MEDS: LORazepam 0.5 MG TABLET PO (21:02)
[2021-01-06] MEDS: QUEtiapine Fumarate 50 MG TABLET PO (21:02)
[2021-01-06] MEDS: Atorvastatin Calcium 20 MG TABLET PO (21:57)
--- NOTE | 2021-01-06 21:59 | PC.NURSE ---
PT BEGAN YELLING JUST BEFORE 9PM, PT REFUSED TO EAT CHOCOLATE ICE CREAM WHICH HAD HIS CRUSHED MEDICATION. PT DID TAKE HIS PILLS WITH WATER FROM [facility]ER[facility] WAL[facility].
--- NOTE | 2021-01-06 23:42 | PC.NURSE ---
pt has been sleeping in recliner chair for the past few hours.
--- NOTE | 2021-01-07 01:39 | PC.NURSE ---
PT WOULD NOT EAT HIS DINNER FROM 01/06. WILL ADD ENSURE TO BREAKFAST LIST TO INCREASE CALORIES IN MORNING.
--- NOTE | 2021-01-07 03:01 | PC.NURSE ---
pt awke, assisted to commode where he was able to void and move his bowels. pt cleaned up and pants changed. pt given ice cream, finished container.
[2021-01-07 04:14] VITALS: PULSE 90; RESP 18; O2SAT 95
--- NOTE | 2021-01-07 07:42 | PC.NURSE ---
Report taken from Rosio WALSH. Pt in room resting with eyes closed. awaiting case management and bed placement.
--- NOTE | 2021-01-07 08:24 | MHC.CM.ED ---
Patient remains in ER. On 01/03, received message to reach out to [facility] on 01/07 about [facility] placement. Winter messaged. Awaiting call back. Continue to monitor for d/c needs.
[2021-01-07 09:18] VITALS: BP 121/59; PULSE 89
[2021-01-07] MEDS: Metoprolol Tartrate 50 MG TABLET 150 MG PO (09:18)
[2021-01-07] MEDS: QUEtiapine Fumarate 25 MG TABLET PO ×2 (09:18→16:22)
[2021-01-07] MEDS: Sertraline HCL 25 MG TABLET PO (09:18)
--- NOTE | 2021-01-07 10:37 | PC.NURSE ---
spoke with and gave update on how patient is doing this morning. aware bed search continues. states she will arrive around 2pm to visit with patient.
--- NOTE | 2021-01-07 16:17 | MHC.CM.ED ---
Patient remains in ER. Patient's , Matthew, requesting to speak to case management. Per [facility], if they are able to accept patient on new older adult unit, they will not be able to admit him before tomorrow. Matthew aware and agreeable. Matthew stated [facility] will most likely be able to offer a bed next Wednesday. Continue to monitor for d/c needs.
[2021-01-07 16:22] VITALS: BP 106/60; PULSE 94; RESP 18; O2SAT 98
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
[2021-01-07] MEDS: LORazepam 0.5 MG TABLET PO (20:19)
[2021-01-07] MEDS: QUEtiapine Fumarate 50 MG TABLET PO (20:20)
[2021-01-07] MEDS: Atorvastatin Calcium 20 MG TABLET PO (20:20)
[2021-01-07] MEDS: Melatonin 3 MG TABLET 6 MG PO (20:20)
[2021-01-08] MEDS: Acetaminophen 325 MG TABLET 650 MG PO (05:32)
[2021-01-08 06:00] VITALS: BP 121/87; PULSE 93; RESP 16; TEMP 37.1; O2SAT 98
--- NOTE | 2021-01-08 08:21 | MHC.CM.ED ---
Patient remains in ER. Waiting to hear if patient will be admitted to the older adult psych unit. Continue to monitor for d/c needs.
[2021-01-08 08:54] VITALS: BP 110/62; PULSE 91; RESP 16; O2SAT 98
[2021-01-08 08:56] VITALS: BP 110/62; PULSE 91
[2021-01-08] MEDS: QUEtiapine Fumarate 25 MG TABLET PO (08:56)
[2021-01-08] MEDS: Metoprolol Tartrate 50 MG TABLET 150 MG PO (08:56)
[2021-01-08] MEDS: Sertraline HCL 25 MG TABLET PO (08:56)
--- NOTE | 2021-01-08 09:29 | MHC.CARE ---
Patient accepted to [facility] for admission today
--- NOTE | 2021-01-08 11:04 | PC.NURSE ---
patient to go to room 175
--- NOTE | 2021-01-08 14:46 | MHC.CARE ---
CARE Team places pt on a section 12a prior to tranfer to in older adult psych unit for safety, due to increased aggression and inability to care for himself in the community.
[2021-01-08] MEDS: QUEtiapine Fumarate 50 MG TABLET PO ×2 (17:08→20:26)
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
[2021-01-08] MEDS: Melatonin 3 MG TABLET 6 MG PO (20:26)
[2021-01-08] MEDS: Atorvastatin Calcium 20 MG TABLET PO (20:26)
[2021-01-09 04:51] VITALS: BP 145/70; PULSE 94; RESP 16; TEMP 36.4; O2SAT 97
[2021-01-09 04:55] VITALS: BP 145/70; PULSE 94; RESP 16; TEMP 36.4; O2SAT 97
[2021-01-09 07:39] VITALS: BP 138/65; PULSE 101; RESP 18; TEMP 36.9; O2SAT 96
[2021-01-09 07:51] LABS: Alanine Aminotransferase 24 U/L (0-40); Albumin Level 3.6 g/dL (3.5-5.0); Alkaline Phosphatase 89 U/L (39-117); Anion Gap 11 (12-20); Aspartate Amino Transferase 23 U/L (5-37); Blood Urea Nitrogen 20 mg/dL (9-16); Calcium 8.8 mg/dL (8.4-10.2); Carbon Dioxide 26 mmol/L (22-29); Chloride 106 mmol/L (96-108); Cholesterol 127 mg/dL; Creatinine Clr Calc Pharmacy 64.5; Estimated Glomerular Filt Rate > 60; Glucose Fasting 89 mg/dL (60-99); HDL Cholesterol 34 mg/dL; LDL Cholesterol Calculated 82 mg/dl; Potassium 4.4 mmol/L (3.3-5.1); Sodium 139 mmol/L (135-145); Total Protein 6.2 g/dL (6.5-8.0); Triglycerides 58 mg/dL
[2021-01-09 08:06] VITALS: BP 138/65; PULSE 101
[2021-01-09] MEDS: Metoprolol Tartrate 50 MG TABLET 150 MG PO (08:06)
[2021-01-09] MEDS: Acetaminophen 325 MG TABLET 650 MG PO ×2 (08:06→14:11)
[2021-01-09] MEDS: Sertraline HCL 25 MG TABLET PO (08:08)
[2021-01-09] MEDS: QUEtiapine Fumarate 25 MG TABLET PO (08:08)
--- NOTE | 2021-01-09 16:40 | P.HPPS_ITS ---
HPI Chief Complaint: PSYCHOSIS Sources of Information: patient interviewed, chart reviewed and crisis/core team assessment reviewed HPI Subjective Notes: Conditional Voluntary Healthcare Proxy: Yes (power of accounting coordinator too) Narrative: Mr. Rodriguez is a 80 year-old male with hx of Dementia, unclear etiology for at least past 3 years. He was brought to [facility] ED from [facility] where he was receiving intensive physical therapy due to increase combativeness and agitation, especially during evening. Most information is gathered from his , Laurie, as pt is grossly disoriented to situation, place, month, year. Per , pt's memory/cognition has significantly deteriorated for the past 8 months. He is currently residing at home with , but states plan is to transition with to memory unit at [facility]. reports pt for past 8 months has been confused as to where he is and asking her to bring him home, even they are home. also reports some suspiciousness, as pt at times reports he thinks someone may have broken in. reports that at times and since beginning of cognitive decline, patient has reported seeing animals on and off. also reports he has resting rolling pin tremor. It was not noticed on exam today. Past Psychiatric History: Inpatient: none OP: none currently, but plan is for pt to be followed by psychiatric provider at [facility] Suicide attempts: none Past trials: seroquel, sertraline. On Ativan and Seroquel from PCP for anxiety and agitation Medical Evaluation Reviewed: Yes Head CT on 12/28/2020- CT/CT head/brain wo con IMPRESSION: 1. No acute abnormalities. 2. Marked white matter chronic small vessel ischemic disease and moderate diffuse parenchymal volume loss of the brain unchanged compared with 12/18/2020 and 05/06/2020. 3. 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 No disproportionate focal edema in the adjacent brain parenchyma. [facility] Medical History (Updated 01/10/21 @ 10:24 by Reina Manzo) Anxiety Dementia Heterozygous factor V Leiden mutation History of GI bleed History of melanoma Hx of deep venous thrombosis Hypertension Vascular dementia Diagnostics Vital Signs (24Hr): Vital Signs - 24 hr 01/09/21 04:51 01/09/21 04:55 01/09/21 07:39 Temperature 97.5 F 97.5 F 98.4 F Pulse Rate 94 94 101 H Respiratory Rate 16 16 18 Blood Pressure 145/70 H 145/70 H 138/65 Pulse Oximetry 97 97 96 01/09/21 08:06 Temperature Pulse Rate 101 H Respiratory Rate Blood Pressure 138/65 Pulse Oximetry Body Mass Index 28.0 Labs Results: 12/28/20 16:40 01/09/21 06:42 Labs: Laboratory Results - last 48 hr 01/09/21 06:42 Sodium 139 Potassium 4.4 Chloride 106 Carbon Dioxide 26 Anion Gap 11 L BUN 20 H Creatinine 1.01 Estim Creat Clear Calc 64.5 Estimated GFR > 60 Fasting Glucose 89 Calcium 8.8 Total Bilirubin 1.0 AST 23 ALT 24 Alkaline Phosphatase 89 Total Protein 6.2 L Albumin 3.6 Triglycerides 58 Cholesterol 127 LDL Cholesterol, Calc 82 HDL Cholesterol 34 Imaging Radiology Impressions: ITS Impressions Chest X-Ray 12/28/20 15:59 IMPRESSION: No acute pulmonary disease. No significant change from prior study. Head CT 12/28/20 15:59 IMPRESSION: 1. No acute abnormalities. 2. Marked white matter chronic small vessel ischemic disease and moderate diffuse parenchymal volume loss of the brain unchanged compared with 12/18/2020 and 05/06/2020. 3. 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 No disproportionate focal edema in the adjacent brain parenchyma. Ankle X-Ray 12/29/20 02:52 IMPRESSION: No acute findings identified. Soft tissue swelling. Degenerative changes. Meds/Allergies Meds Home Medications Acetaminophen (Acetaminophen 325 Mg Tablet) 650 mg PO Q6H PRN PRN Reason: Headache/Pain Mild Scale (1-3) Last Admin: 01/09/21 14:11 Dose: 650 mg Documented by: Al Hydroxide/Mg Hydroxide (Magnesium Hydrox/Alum Hydrox 30 Ml Oral.Susp) 30 ml PO Q6H PRN PRN Reason: Heartburn/Nausea Atorvastatin Calcium (Atorvastatin Calcium 20 Mg Tablet) 20 mg PO BEDTIME [facility] Last Admin: 01/09/21 22:28 Dose: Not Given Documented by: Lorazepam (Lorazepam 0.5 Mg Tablet) 0.5 mg PO BID PRN PRN Reason: agitation Last Admin: 01/10/21 08:33 Dose: 0.5 mg Documented by: Magnesium Hydroxide (Milk Of Magnesia 30 Ml Oral.Susp) 30 ml PO DAILY PRN PRN Reason: Constipation Melatonin (Melatonin 3 Mg Tablet) 6 mg PO BEDTIME [facility] Last Admin: 01/09/21 22:28 Dose: Not Given Documented by: Metoprolol Tartrate (Metoprolol Tartrate 50 Mg Tablet) 150 mg PO DAILY [facility]; Protocol Last Admin: 01/10/21 08:32 Dose: 150 mg Documented by: Quetiapine Fumarate (Quetiapine Fumarate 25 Mg Tablet) 25 mg PO DAILY [facility] Last Admin: 01/10/21 08:33 Dose: 25 mg Documented by: Quetiapine Fumarate (Quetiapine Fumarate 25 Mg Tablet) 25 mg PO BID PRN PRN Reason: anxiety/onset agitation Last Admin: 01/07/21 16:22 Dose: 25 mg Documented by: Quetiapine Fumarate (Quetiapine Fumarate 50 Mg Tablet) 50 mg PO BEDTIME [facility] Last Admin: 01/09/21 22:28 Dose: Not Given Documented by: Quetiapine Fumarate (Quetiapine Fumarate 50 Mg Tablet) 50 mg PO Q6H PRN PRN Reason: agitation Last Admin: 01/09/21 16:41 Dose: 50 mg Documented by: Sertraline HCl (Sertraline Hcl 50 Mg Tablet) 50 mg PO DAILY [facility] Last Admin: 01/10/21 08:33 Dose: 50 mg Documented by: Allergies Allergies Allergy/AdvReac Type Severity Reaction Status Date / Time bee pollen [BEE STINGS] Allergy Unknown UNKNOWN Verified 05/27/20 11:42 lisinopril [LISINOPRIL] Allergy Unknown FACIAL Verified 05/27/20 11:42 EDEMA Mental Status Exam Mental Status Exam Narrative: Appearance: tall male, casually groomed, fair hygiene, in NAD Behavior: irritable edge, confused as to why this proposal lead writer asking questions Psychomotor: no agitation or retardation noted Speech: mumbles at times, some degree of expressive aphasia noted TP: derailment TC: no signs of psychosis, wanting to go home Mood: okay Affect:guarded, irritable SI:none HI:none AH/VH:did not appear to be internally preoccupied Delusions:some suspiciousness, but this may be due to confusion/disorientation rather than neri delusional content Insight/judgment:impaired x 2 Memory/cog: alert, not oriented to situation, month, date/year. severely impaired. Assessment & Plan Assessment & Plan (1) Dementia with behavioral disturbance: Status: Acute Code(s): F03.91 - Unspecified dementia with behavioral disturbance Assessment and Plan: Mr. 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 At this point, the degree of cognitive impairment has significantly affect his overall ability to function with impairments in executive function, visuospatial, language repetition/fluency, significant derailment and incoherent sentences pointing to expressive aphasia, poor recall and disorientation. PLAN 1. Add seroquel 50mg po q6hrs prn agitation, but plan to schedule at haile times to decrease agitation related to confusion. continue seroquel 50mg po qhs and 25mg po daily. 2. Monitor safety awareness, impulsivity ambulating on his own when he is fall risks but lacks awareness 3. PT to assess pt 4. Coordination of care- dispo to [facility] in [place]. (2) History of DVT (deep vein thrombosis): Status: Acute Code(s): Z86.718 - Personal history of other venous thrombosis and embolism (3) Heterozygous factor V Leiden mutation: Status: Acute Code(s): D68.51 - Activated protein C resistance (4) History of melanoma: Status: Acute Code(s): Z85.820 - Personal history of malignant melanoma of skin (5) Hx of deep venous thrombosis: Status: Acute Code(s): Z86.718 - Personal history of other venous thrombosis and embolism Reason for continued inpatient stay Substantial Risk for: harm to self and harm to others
[2021-01-09] MEDS: QUEtiapine Fumarate 50 MG TABLET PO (16:41)
[2021-01-09] MEDS: LORazepam 0.5 MG TABLET PO (17:56)
--- NOTE | 2021-01-09 20:42 | PC.NURSE ---
PT refused meds. This nurse will approach and attempt again later.
[2021-01-10 06:00] VITALS: BP 122/66; PULSE 99; RESP 16; TEMP 36.6; O2SAT 98
--- NOTE | 2021-01-10 06:44 | P.PNPSI_ITS ---
Subjective Subjective Date of Service: 01/11/21 Reason For Visit: PSYCHOSIS Subjective Notes: Conditional Voluntary Healthcare Proxy: Yes Interim History: Pt continues to present with expressive aphasia. Pt is grossly disoriented to situation, year, month, place. He also displays significant derailment when ask questions typically will answer something not related. Yesterday evening, he did have episodes of combativeness when RN trying to give medications. He did sleep for most of the day. Today, we schedule seroquel 50mg po TID, which seemed to help with agitation. Pt asks if he is going under the bridge and if building was being sold. today he appeared slightly less irritable. Medication Compliance: Intermittent Review of Systems Review of Systems Yes Unobtainable due to mental status and Other (limted due to mental status ) Mental Status Exam Mental Status Exam Narrative: Appearance: tall male, casually groomed, fair hygiene, in NAD Behavior: irritable edge, confused as to why this insurance underwriter sales asking questions Psychomotor: no agitation or retardation noted Speech: mumbles at times, some degree of expressive aphasia noted TP: derailment TC: no signs of psychosis, wanting to go home Mood: okay Affect:guarded, irritable SI:none HI:none AH/VH:did not appear to be internally preoccupied Delusions:some suspiciousness, but this may be due to confusion/disorientation rather than neri delusional content Insight/judgment:impaired x 2 Memory/cog: alert, not oriented to situation, month, date/year. severely impaired. Diagnostics Vital Signs (24Hr): Vital Signs - 24 hr 01/10/21 08:32 01/10/21 08:45 01/11/21 06:00 Temperature 98 F Pulse Rate 96 96 52 Respiratory Rate 16 Blood Pressure 105/99 H 105/99 H 112/59 L Pulse Oximetry 96 Body Mass Index 28.0 Labs Results: 12/28/20 16:40 01/09/21 06:42 Labs: Laboratory Results - last 48 hr 01/09/21 06:42 Sodium 139 Potassium 4.4 Chloride 106 Carbon Dioxide 26 Anion Gap 11 L BUN 20 H Creatinine 1.01 Estim Creat Clear Calc 64.5 Estimated GFR > 60 Fasting Glucose 89 Calcium 8.8 Total Bilirubin 1.0 AST 23 ALT 24 Alkaline Phosphatase 89 Total Protein 6.2 L Albumin 3.6 Triglycerides 58 Cholesterol 127 LDL Cholesterol, Calc 82 HDL Cholesterol 34 Imaging Radiology Impressions: ITS Impressions Chest X-Ray 12/28/20 15:59 IMPRESSION: No acute pulmonary disease. No significant change from prior study. Head CT 12/28/20 15:59 IMPRESSION: 1. No acute abnormalities. 2. Marked white matter chronic small vessel ischemic disease and moderate diffuse parenchymal volume loss of the brain unchanged compared with 12/18/2020 and 05/06/2020. 3. 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 No disproportionate focal edema in the adjacent brain parenchyma. Ankle X-Ray 12/29/20 02:52 IMPRESSION: No acute findings identified. Soft tissue swelling. Degenerative changes. Medications Medications Current Medications Generic Name Dose Route Start Last Admin Trade Name Freq PRN Reason Stop Dose Admin Acetaminophen 650 mg 01/08/21 13:26 01/10/21 13:50 Acetaminophen 325 Mg Tablet PO 650 mg Q6H PRN Administration Headache/Pain Mild Scale (1-3) Al Hydroxide/Mg Hydroxide 30 ml 01/08/21 13:26 Magnesium Hydrox/Alum Hydrox 30 Ml Oral.Susp PO Q6H PRN Heartburn/Nausea Amlodipine Besylate 5 mg 01/11/21 09:00 Amlodipine Besylate 5 Mg Tablet PO DAILY [facility] Protocol Aspirin 81 mg 01/11/21 09:00 Aspirin Enteric Coated 81 Mg Tablet.Dr PO DAILY [facility] Atorvastatin Calcium 20 mg 12/28/20 21:00 01/10/21 22:27 Atorvastatin Calcium 20 Mg Tablet PO Not Given BEDTIME [facility] Magnesium Hydroxide 30 ml 01/08/21 13:26 Milk Of Magnesia 30 Ml Oral.Susp PO DAILY PRN Constipation Melatonin 6 mg 12/29/20 21:00 01/10/21 22:28 Melatonin 3 Mg Tablet PO Not Given BEDTIME [facility] Metoprolol Tartrate 150 mg 12/29/20 09:00 01/10/21 08:32 Metoprolol Tartrate 50 Mg Tablet PO 150 mg DAILY [facility] Administration Protocol Metoprolol Tartrate 100 mg 01/10/21 21:00 01/10/21 22:28 Metoprolol Tartrate 100 Mg Tablet PO Not Given BEDTIME [facility] Protocol Quetiapine Fumarate 50 mg 01/08/21 15:52 01/10/21 15:49 Quetiapine Fumarate 50 Mg Tablet PO 50 mg Q6H PRN Administration agitation Quetiapine Fumarate 50 mg 01/10/21 15:00 01/10/21 22:28 Quetiapine Fumarate 50 Mg Tablet PO Not Given TID LUCAS Sertraline HCl 50 mg 01/10/21 09:00 01/10/21 08:33 Sertraline Hcl 50 Mg Tablet PO 50 mg DAILY [facility] Administration Allergies Allergies Allergy/AdvReac Type Severity Reaction Status Date / Time bee pollen [BEE STINGS] Allergy Unknown UNKNOWN Verified 05/27/20 11:42 lisinopril [LISINOPRIL] Allergy Unknown FACIAL Verified 05/27/20 11:42 EDEMA Assessment & Plan Assessment & Plan (1) Dementia with behavioral disturbance: Status: Acute Code(s): F03.91 - Unspecified dementia with behavioral disturbance Assessment and Plan: Mr. Moreno is a 80 year-old male with hx of dementia, most likely multifactorial (vascular, LBD, AD) in that his CT does support chronic microvascular changes, atrophy, but also his pattern of cognitive decline, with early VH, parkinsonian symptoms point to possible LBD. At this point, the degree of cognitive impairment has significantly affect his overall ability to function with impairments in executive function, visuospatial, language repetition/fluency, significant derailment and incoherent sentences pointing to expressive aphasia, poor recall and disorientation. PLAN 1. Continue seroquel 50mg po q6hrs prn agitation 2. Increase seroquel 50mg po TID. 2. Monitor safety awareness, impulsivity ambulating on his own when he is fall risks but lacks awareness 3. PT to assess pt 4. Coordination of care- dispo to [facility] in [place]. (2) History of DVT (deep vein thrombosis): Status: Acute Code(s): Z86.718 - Personal history of other venous thrombosis and embolism Assessment and Plan: pt with leiden factor 5- on aspirin (3) Heterozygous factor V Leiden mutation: Status: Acute Code(s): D68.51 - Activated protein C resistance (4) History of melanoma: Status: Acute Code(s): Z85.820 - Personal history of malignant melanoma of skin (5) Hx of deep venous thrombosis: Status: Acute Code(s): Z86.718 - Personal history of other venous thrombosis and embolism Greater than 50% of the session was spent on counseling and/or coordination of care Reason for contiued inpatient stay Substantial Risk for: harm to self, harm to others and inability to function
--- NOTE | 2021-01-10 06:49 | PC.NURSE ---
Late entry: PT became agitated with staff as the PT was walking around his bed and staff was trying to stand by his side to prevent a fall. PT grabbed his sitter by her arms and shook her while threatening and insulting her. This nurse then went into the room to redirect the PT into bed. PT kept insisting that he needed to make the bed and proceeded to walk around the bed fixing the sheets. This nurse then tried to help the PT make the bed and the PT closed his fists and made a movement towards me before I grabbed his hands, preventing him from swinging at me. PT was able to be redirected to bed. PT refused night time meds but then fell asleep for the rest of the night.
[2021-01-10 08:32] VITALS: BP 105/99; PULSE 96
[2021-01-10] MEDS: Metoprolol Tartrate 50 MG TABLET 150 MG PO (08:32)
[2021-01-10] MEDS: Sertraline HCL 50 MG TABLET PO (08:33)
[2021-01-10] MEDS: LORazepam 0.5 MG TABLET PO (08:33)
[2021-01-10] MEDS: QUEtiapine Fumarate 25 MG TABLET PO (08:33)
[2021-01-10 08:45] VITALS: BP 105/99; PULSE 96
[2021-01-10] MEDS: Acetaminophen 325 MG TABLET 650 MG PO (13:50)
[2021-01-10] MEDS: QUEtiapine Fumarate 50 MG TABLET PO ×2 (15:07→15:49)
--- NOTE | 2021-01-10 22:23 | PC.NURSE ---
PT took one time dose of haldol and benadryl dissolved in water jug with his health care proxy's consent.
[2021-01-10] MEDS: HaloperidoL 5 MG TABLET 10 MG PO (22:27)
[2021-01-10] MEDS: diphenhydrAMINE HCL 25 MG TABLET 50 MG PO (22:27)
[2021-01-11 06:00] VITALS: BP 112/59; PULSE 52; RESP 16; TEMP 36.6; O2SAT 96
[2021-01-11 07:50] VITALS: BP 161/79; PULSE 96
[2021-01-11] MEDS: Metoprolol Tartrate 50 MG TABLET 150 MG PO (07:50)
[2021-01-11 07:51] VITALS: BP 161/79; PULSE 96
[2021-01-11] MEDS: QUEtiapine Fumarate 50 MG TABLET PO ×3 (07:51→20:39)
[2021-01-11] MEDS: amLODIPine Besylate 5 MG TABLET PO (07:51)
[2021-01-11] MEDS: Sertraline HCL 50 MG TABLET PO (07:51)
[2021-01-11] MEDS: Aspirin Enteric Coated 81 MG TABLET.DR PO (07:52)
[2021-01-11 18:07] VITALS: BP 111/55; PULSE 90; TEMP 36.1; O2SAT 98
--- NOTE | 2021-01-11 18:57 | P.PNPSI_ITS ---
Subjective Subjective Date of Service: 01/11/21 Reason For Visit: PSYCHOSIS Interim History: Arcadio has remained largely unchanged. He gets quite agitated in the evening and last night required haldol. PRN is now in place for acute agitation. He is aphasic and confused/ He is not compliant with treatment. Medication Compliance: Intermittent Side effects from medications: No Review of Systems Acute medical concerns: No Medical Review of Systems: unchanged Mental Status Exam Mental Status Exam Narrative: Appearance: tall male, casually groomed, fair hygiene, in NAD Behavior: irritable edge, confused as to why this job specification writer asking questions Psychomotor: no agitation or retardation noted Speech: mumbles at times, some degree of expressive aphasia noted TP: derailment TC: no signs of psychosis, wanting to go home Mood: okay Affect:guarded, irritable SI:none HI:none AH/VH:did not appear to be internally preoccupied Delusions:some suspiciousness, but this may be due to confusion/disorientation rather than neri delusional content Insight/judgment:impaired x 2 Memory/cog: alert, not oriented to situation, month, date/year. severely impaired. Diagnostics Vital Signs (24Hr): Vital Signs - 24 hr 01/11/21 06:00 01/11/21 07:50 01/11/21 07:51 Temperature 98 F Pulse Rate 52 96 96 Respiratory Rate 16 Blood Pressure 112/59 L 161/79 H 161/79 H Pulse Oximetry 96 01/11/21 18:07 Temperature 97.0 F Pulse Rate 90 Respiratory Rate Blood Pressure 111/55 L Pulse Oximetry 98 Body Mass Index 28.0 Labs Results: 12/28/20 16:40 01/09/21 06:42 Imaging Radiology Impressions: ITS Impressions Chest X-Ray 12/28/20 15:59 IMPRESSION: No acute pulmonary disease. No significant change from prior study. Head CT 12/28/20 15:59 IMPRESSION: 1. No acute abnormalities. 2. Marked white matter chronic small vessel ischemic disease and moderate diffuse parenchymal volume loss of the brain unchanged compared with 12/18/2020 and 05/06/2020. 3. 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 No disproportionate focal edema in the adjacent brain parenchyma. Ankle X-Ray 12/29/20 02:52 IMPRESSION: No acute findings identified. Soft tissue swelling. Degenerative changes. Medications Medications Current Medications Generic Name Dose Route Start Last Admin Trade Name Elie PRN Reason Stop Dose Admin Acetaminophen 650 mg 01/08/21 13:26 01/10/21 13:50 Acetaminophen 325 Mg Tablet PO 650 mg Q6H PRN Administration Headache/Pain Mild Scale (1-3) Al Hydroxide/Mg Hydroxide 30 ml 01/08/21 13:26 Magnesium Hydrox/Alum Hydrox 30 Ml Oral.Susp PO Q6H PRN Heartburn/Nausea Amlodipine Besylate 5 mg 01/11/21 09:00 01/11/21 07:51 Amlodipine Besylate 5 Mg Tablet PO 5 mg DAILY [facility] Administration Protocol Aspirin 81 mg 01/11/21 09:00 01/11/21 07:52 Aspirin Enteric Coated 81 Mg Tablet.Dr PO 81 mg DAILY [facility] Administration Atorvastatin Calcium 20 mg 12/28/20 21:00 01/10/21 22:27 Atorvastatin Calcium 20 Mg Tablet PO Not Given BEDTIME [facility] Diphenhydramine HCl 50 mg 01/11/21 14:03 Diphenhydramine Hcl 25 Mg Tablet PO Q4H PRN anxiety/restlessness Haloperidol 5 mg 01/11/21 14:03 Haloperidol 5 Mg Tablet PO RQ4H PRN anxiety/restlessness Magnesium Hydroxide 30 ml 01/08/21 13:26 Milk Of Magnesia 30 Ml Oral.Susp PO DAILY PRN Constipation Melatonin 6 mg 12/29/20 21:00 01/10/21 22:28 Melatonin 3 Mg Tablet PO Not Given BEDTIME [facility] Metoprolol Tartrate 150 mg 12/29/20 09:00 01/11/21 07:50 Metoprolol Tartrate 50 Mg Tablet PO 150 mg DAILY [facility] Administration Protocol Metoprolol Tartrate 100 mg 01/10/21 21:00 01/10/21 22:28 Metoprolol Tartrate 100 Mg Tablet PO Not Given BEDTIME [facility] Protocol Quetiapine Fumarate 50 mg 01/08/21 15:52 01/10/21 15:49 Quetiapine Fumarate 50 Mg Tablet PO 50 mg Q6H PRN Administration agitation Quetiapine Fumarate 50 mg 01/10/21 15:00 01/11/21 14:30 Quetiapine Fumarate 50 Mg Tablet PO 50 mg TID [facility]AS Administration Sertraline HCl 50 mg 01/10/21 09:00 01/11/21 07:51 Sertraline Hcl 50 Mg Tablet PO 50 mg DAILY [facility] Administration Allergies Allergies Allergy/AdvReac Type Severity Reaction Status Date / Time bee pollen [BEE STINGS] Allergy Unknown UNKNOWN Verified 05/27/20 11:42 lisinopril [LISINOPRIL] Allergy Unknown FACIAL Verified 05/27/20 11:42 EDEMA Assessment & Plan Assessment & Plan (1) Dementia with behavioral disturbance: Status: Acute Code(s): F03.91 - Unspecified dementia with behavioral disturbance Assessment and Plan: Mr. Moreno is a 80 year-old male with hx of dementia, most likely multifacto rial (vascular, LBD, AD) in that his CT does support chronic microvascular changes, atrophy, but also his pattern of cognitive decline, with early VH, parkinsonian symptoms point to possible LBD. At this point, the degree of cognitive impairment has significantly affect his overall ability to function with impairments in executive function, visuospatial, language repetition/fluency, significant derailment and incoherent sentences pointing to expressive aphasia, poor recall and disorientation. PLAN 1. Continue seroquel 50mg po q6hrs prn agitation 2. Increase seroquel 50mg po TID. 2. Monitor safety awareness, impulsivity ambulating on his own when he is fall risks but lacks awareness 3. PT to assess pt 4. Coordination of care- dispo to [facility] in [place]. 5. Add prn haldol (2) History of DVT (deep vein thrombosis): Status: Acute Code(s): Z86.718 - Personal history of other venous thrombosis and embolism Assessment and Plan: pt with leiden factor 5- on aspirin (3) Heterozygous factor V Leiden mutation: Status: Acute Code(s): D68.51 - Activated protein C resistance (4) History of melanoma: Status: Acute Code(s): Z85.820 - Personal history of malignant melanoma of skin (5) Hx of deep venous thrombosis: Status: Acute Code(s): Z86.718 - Personal history of other venous thrombosis and embolism Greater than 50% of the session was spent on counseling and/or coordination of care Patient educated on: diagnosis and medication risk/benefits Informed Consent: does not understand Reason for contiued inpatient stay Substantial Risk for: med/psych decompensation
[2021-01-11] MEDS: Atorvastatin Calcium 20 MG TABLET PO (20:39)
[2021-01-11 20:40] VITALS: BP 111/55; PULSE 90
[2021-01-12 06:00] VITALS: BP 143/70; PULSE 81; RESP 16; TEMP 36.6; O2SAT 96
[2021-01-12 08:34] VITALS: BP 97/59; PULSE 96; RESP 17; TEMP 36.7; O2SAT 97
[2021-01-12] MEDS: QUEtiapine Fumarate 50 MG TABLET PO ×3 (08:36→17:49)
[2021-01-12] MEDS: Sertraline HCL 50 MG TABLET PO (08:36)
[2021-01-12] MEDS: Acetaminophen 325 MG TABLET 650 MG PO ×2 (08:36→17:49)
[2021-01-12] MEDS: Aspirin Enteric Coated 81 MG TABLET.DR PO (08:36)
[2021-01-12 08:37] VITALS: BP 97/59; PULSE 96
[2021-01-12 09:08] VITALS: BP 97/59; PULSE 96
[2021-01-12] MEDS: Milk of Magnesia 30 ML ORAL.SUSP PO (09:10)
--- NOTE | 2021-01-12 18:09 | P.PNPSI_ITS ---
Subjective Subjective Date of Service: 01/12/21 Reason For Visit: PSYCHOSIS Subjective Notes: Conditional Voluntary Interim History: Arcadio was notably calmer today and he was more interactive with his sitter. He has no EPS from haldol Medication Compliance: Yes Side effects from medications: No Review of Systems Acute medical concerns: No Medical Review of Systems: unchanged Mental Status Exam Mental Status Exam Narrative: Appearance: tall male, casually groomed, fair hygiene, in NAD Behavior: irritable edge, confused as to why this technical publications writer asking questions Psychomotor: no agitation or retardation noted Speech: mumbles at times, some degree of expressive aphasia noted TP: derailment TC: no signs of psychosis, wanting to go home Mood: okay Affect:guarded, irritable SI:none HI:none AH/VH:did not appear to be internally preoccupied Delusions:some suspiciousness, but this may be due to confusion/disorientation rather than neri delusional content Insight/judgment:impaired x 2 Memory/cog: alert, not oriented to situation, month, date/year. severely impaired. Diagnostics Vital Signs (24Hr): Vital Signs - 24 hr 01/11/21 20:40 01/12/21 06:00 01/12/21 08:34 Temperature 97.9 F 98.1 F Pulse Rate 90 81 96 Respiratory Rate 16 17 Blood Pressure 111/55 L 143/70 H 97/59 L Pulse Oximetry 96 97 01/12/21 08:37 01/12/21 09:08 Temperature Pulse Rate 96 96 Respiratory Rate Blood Pressure 97/59 L 97/59 L Pulse Oximetry Body Mass Index 28.0 Labs Results: 12/28/20 16:40 01/09/21 06:42 Imaging Radiology Impressions: ITS Impressions Chest X-Ray 12/28/20 15:59 IMPRESSION: No acute pulmonary disease. No significant change from prior study. Head CT 12/28/20 15:59 IMPRESSION: 1. No acute abnormalities. 2. Marked white matter chronic small vessel ischemic disease and moderate diffuse parenchymal volume loss of the brain unchanged compared with 12/18/2020 and 05/06/2020. 3. 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 No disproportionate focal edema in the adjacent brain parenchyma. Ankle X-Ray 12/29/20 02:52 IMPRESSION: No acute findings identified. Soft tissue swelling. Degenerative changes. Medications Medications Current Medications Generic Name Dose Route Start Last Admin Trade Name Freq PRN Reason Stop Dose Admin Acetaminophen 650 mg 01/08/21 13:26 01/12/21 17:49 Acetaminophen 325 Mg Tablet PO 650 mg Q6H PRN Administration Headache/Pain Mild Scale (1-3) Al Hydroxide/Mg Hydroxide 30 ml 01/08/21 13:26 Magnesium Hydrox/Alum Hydrox 30 Ml Oral.Susp PO Q6H PRN Heartburn/Nausea Amlodipine Besylate 5 mg 01/11/21 09:00 01/12/21 09:08 Amlodipine Besylate 5 Mg Tablet PO Not Given DAILY LUCAS Protocol Aspirin 81 mg 01/11/21 09:00 01/12/21 08:36 Aspirin Enteric Coated 81 Mg Tablet.Dr PO 81 mg DAILY LUCAS Administration Atorvastatin Calcium 20 mg 12/28/20 21:00 01/11/21 20:39 Atorvastatin Calcium 20 Mg Tablet PO 20 mg BEDTIME LUCAS Administration Diphenhydramine HCl 50 mg 01/11/21 14:03 Diphenhydramine Hcl 25 Mg Tablet PO Q4H PRN anxiety/restlessness Haloperidol 5 mg 01/11/21 14:03 Haloperidol 5 Mg Tablet PO RQ4H PRN anxiety/restlessness Magnesium Hydroxide 30 ml 01/08/21 13:26 01/12/21 09:10 Milk Of Magnesia 30 Ml Oral.Susp PO 30 ml DAILY PRN Administration Constipation Melatonin 6 mg 12/29/20 21:00 01/11/21 20:40 Melatonin 3 Mg Tablet PO Not Given BEDTIME LUCAS Metoprolol Tartrate 150 mg 12/29/20 09:00 01/12/21 08:37 Metoprolol Tartrate 50 Mg Tablet PO Not Given DAILY LUCAS Protocol Metoprolol Tartrate 100 mg 01/10/21 21:00 01/11/21 20:40 Metoprolol Tartrate 100 Mg Tablet PO Not Given BEDTIME LUCAS Protocol Quetiapine Fumarate 50 mg 01/08/21 15:52 01/12/21 17:49 Quetiapine Fumarate 50 Mg Tablet PO 50 mg Q6H PRN Administration agitation Quetiapine Fumarate 50 mg 01/10/21 15:00 01/12/21 15:07 Quetiapine Fumarate 50 Mg Tablet PO 50 mg TID LUCAS Administration Sertraline HCl 50 mg 01/10/21 09:00 01/12/21 08:36 Sertraline Hcl 50 Mg Tablet PO 50 mg DAILY LUCAS Administration Allergies Allergies Allergy/AdvReac Type Severity Reaction Status Date / Time bee pollen [BEE STINGS] Allergy Unknown UNKNOWN Verified 05/27/20 11:42 lisinopril [LISINOPRIL] Allergy Unknown FACIAL Verified 05/27/20 11:42 EDEMA Assessment & Plan Assessment & Plan (1) Dementia with behavioral disturbance: Status: Acute Code(s): F03.91 - Unspecified dementia with behavioral disturbance (2) History of DVT (deep vein thrombosis): Status: Acute Code(s): Z86.718 - Personal history of other venous thrombosis and embolism (3) Heterozygous factor V Leiden mutation: Status: Acute Code(s): D68.51 - Activated protein C resistance (4) History of melanoma: Status: Acute Code(s): Z85.820 - Personal history of malignant melanoma of skin (5) Hx of deep venous thrombosis: Status: Acute Code(s): Z86.718 - Personal history of other venous thrombosis and embolism Assessment and Plan: Mr. Moreno is a 80 year-old male with hx of dementia, most likely mu ltifactorial (vascular, LBD, AD) in that his CT does support chronic microvascular changes, atrophy, but also his pattern of cognitive decline, with early VH, parkinsonian symptoms point to possible LBD. At this point, the degree of cognitive impairment has significantly affect his overall ability to function with impairments in executive function, visuospatial, language repetition/fluency, significant derailment and incoherent sentences pointing to expressive aphasia, poor recall and disorientation. PLAN 1. Continue seroquel 50mg po q6hrs prn agitation 2. Increase seroquel 50mg po TID. 2. Monitor safety awareness, impulsivity ambulating on his own when he is fall risks but lacks awareness 3. PT to assess pt 4. Coordination of care- dispo to [facility] in [place]. 5. Add prn haldol pt with leiden factor 5- on aspirin NO change to his current treatment plan Greater than 50% of the session was spent on counseling and/or coordination of care Patient educated on: diagnosis and medication risk/benefits Informed Consent: does not understand Reason for contiued inpatient stay Substantial Risk for: inability to function and med/psych decompensation
[2021-01-12] MEDS: Magnesium Hydrox/Alum Hydrox 30 ML ORAL.SUSP PO (18:15)
[2021-01-12] MEDS: HaloperidoL 5 MG TABLET PO (19:50)
[2021-01-12 21:23] VITALS: BP 96/45; PULSE 99
[2021-01-12 21:25] VITALS: BP 96/45; PULSE 99; TEMP 36.6; O2SAT 96
[2021-01-13 06:00] VITALS: BP 133/72; PULSE 81; TEMP 35.6; O2SAT 96
--- NOTE | 2021-01-13 06:43 | HO.PSYCHPN ---
Subjective Subjective Date of Service: 01/14/21 Reason For Visit: PSYCHOSIS Interim History: Per nursing, Arcadio had one episode of combativeness around midnight- received haldol with good effect. Today, he is well groomed, accepting care and presents less irritable. He continues to present as disoriented to situation,place. Thought process with significant derailment, expressive aphasia. Pt told this video game script writer are we going cooking or under the bridge? after that communication was intelligible. No combativeness. Review of Systems Review of Systems Yes Unobtainable due to mental status and Other (limted due to mental status ) Mental Status Exam Mental Status Exam Narrative: Appearance: tall male, casually groomed, fair hygiene, in NAD Behavior: irritable edge, confused as to why this video game script writer asking questions Psychomotor: no agitation or retardation noted Speech: mumbles at times, some degree of expressive aphasia noted TP: derailment TC: no signs of psychosis, wanting to go home Mood: okay Affect:guarded, irritable SI:none HI:none AH/VH:did not appear to be internally preoccupied Delusions:some suspiciousness, but this may be due to confusion/disorientation rather than neri delusional content Insight/judgment:impaired x 2 Memory/cog: alert, not oriented to situation, month, date/year. severely impaired. Diagnostics Vital Signs (24Hr): Vital Signs - 24 hr 01/13/21 09:01 01/14/21 06:24 Temperature 98.4 F Pulse Rate 81 84 Respiratory Rate 16 Blood Pressure 133/72 121/62 Pulse Oximetry 95 Body Mass Index 28.0 Labs Results: 01/13/21 07:32 01/09/21 06:42 Labs: Laboratory Results - last 48 hr 01/13/21 07:32 WBC 6.0 RBC 3.72 L Hgb 11.9 L Hct 35.5 L MCV 95.4 MCH 32.0 MCHC 33.5 RDW 12.5 Plt Count 191 MPV 8.6 L Immature Gran % (Auto) 0.3 Neut % (Auto) 66.4 Lymph % (Auto) 24.8 Scurry % (Auto) 6.4 Eos % (Auto) 1.8 Baso % (Auto) 0.3 Lymph # (Auto) 1.5 Scurry # (Auto) 0.4 Eos # (Auto) 0.1 Baso # (Auto) 0.0 Abs Immat Gran (auto) 0.02 Absolute Neuts (auto) 4.0 Absolute Nucleated RBC 0.000 Nucleated RBC % (auto) 0.0 Imaging Radiology Impressions: ITS Impressions Chest X-Ray 12/28/20 15:59 IMPRESSION: No acute pulmonary disease. No significant change from prior study. Head CT 12/28/20 15:59 IMPRESSION: 1. No acute abnormalities. 2. Marked white matter chronic small vessel ischemic disease and moderate diffuse parenchymal volume loss of the brain unchanged compared with 12/18/2020 and 05/06/2020. 3. 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 No disproportionate focal edema in the adjacent brain parenchyma. Ankle X-Ray 12/29/20 02:52 IMPRESSION: No acute findings identified. Soft tissue swelling. Degenerative changes. Medications Medications Current Medications Generic Name Dose Route Start Last Admin Trade Name Freq PRN Reason Stop Dose Admin Acetaminophen 650 mg 01/08/21 13:26 01/13/21 15:38 Acetaminophen 325 Mg Tablet PO 650 mg Q6H PRN Administration Headache/Pain Mild Scale (1-3) Al Hydroxide/Mg Hydroxide 30 ml 01/08/21 13:26 01/12/21 18:15 Magnesium Hydrox/Alum Hydrox 30 Ml Oral.Susp PO 30 ml Q6H PRN Administration Heartburn/Nausea Amlodipine Besylate 5 mg 01/11/21 09:00 01/13/21 09:37 Amlodipine Besylate 5 Mg Tablet PO 5 mg DAILY LUCAS Administration Protocol Aspirin 81 mg 01/11/21 09:00 01/13/21 09:00 Aspirin Enteric Coated 81 Mg Tablet. PO 81 mg DAILY LUCAS Administration Atorvastatin Calcium 20 mg 12/28/20 21:00 01/13/21 23:37 Atorvastatin Calcium 20 Mg Tablet PO Not Given BEDTIME LUCAS Diphenhydramine HCl 50 mg 01/11/21 14:03 01/13/21 11:58 Diphenhydramine Hcl 25 Mg Tablet PO 50 mg Q4H PRN Administration anxiety/restlessness Haloperidol 5 mg 01/11/21 14:03 01/13/21 11:58 Haloperidol 5 Mg Tablet PO 5 mg RQ4H PRN Administration anxiety/restlessness Magnesium Hydroxide 30 ml 01/08/21 13:26 01/12/21 09:10 Milk Of Magnesia 30 Ml Oral.Susp PO 30 ml DAILY PRN Administration Constipation Melatonin 6 mg 12/29/20 21:00 01/13/21 23:38 Melatonin 3 Mg Tablet PO Not Given BEDTIME LUCAS Metoprolol Tartrate 150 mg 12/29/20 09:00 01/13/21 09:01 Metoprolol Tartrate 50 Mg Tablet PO 150 mg DAILY LUCAS Administration Protocol Metoprolol Tartrate 100 mg 01/10/21 21:00 01/13/21 23:38 Metoprolol Tartrate 100 Mg Tablet PO Not Given BEDTIME LUCAS Protocol Quetiapine Fumarate 50 mg 01/08/21 15:52 01/12/21 17:49 Quetiapine Fumarate 50 Mg Tablet PO 50 mg Q6H PRN Administration agitation Quetiapine Fumarate 50 mg 01/10/21 15:00 01/13/21 23:39 Quetiapine Fumarate 50 Mg Tablet PO Not Given TID LUCAS Sertraline HCl 50 mg 01/10/21 09:00 01/13/21 09:00 Sertraline Hcl 50 Mg Tablet PO 50 mg DAILY LUCAS Administration Allergies Allergies Allergy/AdvReac Type Severity Reaction Status Date / Time bee pollen [BEE STINGS] Allergy Unknown UNKNOWN Verified 05/27/20 11:42 lisinopril [LISINOPRIL] Allergy Unknown FACIAL Verified 05/27/20 11:42 EDEMA Assessment & Plan Assessment & Plan (1) Dementia with behavioral disturbance: Status: Acute Code(s): F03.91 - Unspecified dementia with behavioral disturbance (2) History of DVT (deep vein thrombosis): Status: Acute Code(s): Z86.718 - Personal history of other venous thrombosis and embolism (3) Heterozygous factor V Leiden mutation: Status: Acute Code(s): D68.51 - Activated protein C resistance (4) History of melanoma: Status: Acute Code(s): Z85.820 - Personal history of malignant melanoma of skin (5) Hx of deep venous thrombosis: Status: Acute Code(s): Z86.718 - Personal history of other venous thrombosis and embolism Assessment and Plan: Mr. Moreno is a 80 year-old male with hx of dementia, most likely multifactorial (vascular, LBD, AD) in that his CT does support chronic microvascular changes, atrophy, but also his pattern of cognitive decline, with early VH, parkinsonian symptoms point to possible LBD. At this point, the degree of cognitive impairment has significantly affect his overall ability to function with impairments in executive function, visuospatial, language repetition/fluency, significant derailment and incoherent sentences pointing to expressive aphasia, poor recall and disorientation. PLAN 1. Continue seroquel 50mg po q6hrs prn agitation 2. Increase seroquel 50mg po TID. 2. Monitor safety awareness, impulsivity ambulating on his own when he is fall risks but lacks awareness 3. PT to assess pt 4. Coordination of care- dispo to [facility] in [place]. 5. Add prn haldol pt with leiden factor 5- on aspirin NO change to his current treatment plan Greater than 50% of the session was spent on counseling and/or coordination of care Reason for contiued inpatient stay Substantial Risk for: harm to others
[2021-01-13 07:41] LABS: MANUAL DIFF FLAG NO
[2021-01-13 07:50] LABS: Basophils Percent Auto 0.3 % (0-2); Eosinophils Absolute Auto 0.1 X10*3/uL (0.0-0.4); Eosinophils Percent Auto 1.8 % (0-4); Hematocrit 35.5 % (42-52); Hemoglobin 11.9 g/dl (14.0-18.0); Imm Gran Abs Auto 0.02 X10*3/uL (0.00-0.03); Imm Gran Pct Auto 0.3 % (0.0-0.4); Lymphocytes Absolute Auto 1.5 X10*3/uL (1.2-4.9); Lymphocytes Percent Auto 24.8 % (20-40); Mean Corpuscular HGB Conc 33.5 g/dl (31.0-36.0); Mean Corpuscular Volume 95.4 fL (80-98); Mean Platelet Volume 8.6 fL (9.4-12.4); Monocytes Absolute Auto 0.4 X10*3/uL (0.1-1.2); Monocytes Percent Auto 6.4 % (2-11); Neutrophils Percent Auto 66.4 % (45-73); Platelet Count 191 X10*3/uL (160-400); Red Blood Count 3.72 X10*6/uL (4.60-5.80); Red Cell Distribution Width 12.5 % (11.0-16.0)
[2021-01-13] MEDS: QUEtiapine Fumarate 50 MG TABLET PO ×2 (09:00→15:39)
[2021-01-13] MEDS: Aspirin Enteric Coated 81 MG TABLET.DR PO (09:00)
[2021-01-13] MEDS: Sertraline HCL 50 MG TABLET PO (09:00)
[2021-01-13 09:01] VITALS: BP 133/72; PULSE 81
[2021-01-13] MEDS: Metoprolol Tartrate 50 MG TABLET 150 MG PO (09:01)
[2021-01-13] MEDS: amLODIPine Besylate 5 MG TABLET PO (09:37)
[2021-01-13] MEDS: diphenhydrAMINE HCL 25 MG TABLET 50 MG PO (11:58)
[2021-01-13] MEDS: HaloperidoL 5 MG TABLET PO (11:58)
[2021-01-13] MEDS: Acetaminophen 325 MG TABLET 650 MG PO (15:38)
[2021-01-14 06:24] VITALS: BP 121/62; PULSE 84; RESP 16; TEMP 36.9; O2SAT 95
[2021-01-14] MEDS: Aspirin Enteric Coated 81 MG TABLET.DR PO (08:45)
[2021-01-14] MEDS: Metoprolol Tartrate 50 MG TABLET 150 MG PO (08:45)
[2021-01-14] MEDS: amLODIPine Besylate 5 MG TABLET PO (08:45)
[2021-01-14] MEDS: Sertraline HCL 50 MG TABLET PO (08:45)
[2021-01-14] MEDS: QUEtiapine Fumarate 50 MG TABLET PO (08:45)
[2021-01-14] MEDS: diphenhydrAMINE HCL 25 MG TABLET 50 MG PO (08:45)
[2021-01-14] MEDS: HaloperidoL 5 MG TABLET PO (08:46)
--- NOTE | 2021-01-14 09:57 | P.DS_ITS ---
DS: Providers Provider Date of Service: 01/14/21 Date of admission: 01/08/21 12:45 Primary care physician: Arthur Hook MD DS: Diagnosis Discharge Diagnosis (1) Dementia with behavioral disturbance: Status: Acute (2) History of DVT (deep vein thrombosis): Status: Acute (3) Heterozygous factor V Leiden mutation: Status: Acute (4) History of melanoma: Status: Acute (5) Hx of deep venous thrombosis: Status: Acute DS: Medications Discharge Medications Home Medications: Home Medications Medication Instructions Recorded Confirmed simvastatin 40 mg PO BEDTIME 05/27/20 12/28/20 quetiapine [Seroquel] 25 mg PO BEDTIME 12/18/20 12/28/20 sertraline [Zoloft] 25 mg PO DAILY 12/18/20 12/28/20 lorazepam 0.5 mg PO BID PRN 12/28/20 12/28/20 lorazepam 1 mg PO BID 12/28/20 12/28/20 metoprolol tartrate 150 mg PO DAILY 12/28/20 12/28/20 metoprolol tartrate 100 mg PO BEDTIME 12/30/20 12/30/20 Discharge Plan Discharge Patient Disposition: Home, Self-Care Discharge Diagnosis: Dementia with behavioral disturbances Referrals: Arthur Hook MD [Primary Care Provider] - 1 Week Discharge Medications: New melatonin 3 mg Tablet 6 mg PO BEDTIME Qty: 30 RF: 0 aspirin 81 mg Tablet,Delayed Release (Dr/Ec) 81 mg PO DAILY Qty: 30 RF: 0 sertraline 50 mg Tablet 50 mg PO DAILY Qty: 30 RF: 0 quetiapine 50 mg Tablet 50 mg PO TID Qty: 90 RF: 0 amlodipine 5 mg Tablet 5 mg PO DAILY Qty: 30 RF: 0 Continued metoprolol tartrate 100 mg Tablet 100 mg PO BEDTIME Qty: 30 RF: 0 simvastatin 40 mg Tablet 40 mg PO BEDTIME Qty: 30 RF: 0 metoprolol tartrate 50 mg Tablet 150 mg PO DAILY Qty: 30 RF: 0 Discontinued quetiapine [Seroquel] 25 mg Tablet 25 mg PO BEDTIME RF: 0 sertraline [Zoloft] 25 mg Tablet 25 mg PO DAILY RF: 0 lorazepam 0.5 mg Tablet 0.5 mg PO BID PRN (Reason: Anxiety) RF: 0 lorazepam 1 mg Tablet 1 mg PO BID RF: 0 Discharge Orders: Discharge Order (Routine); Ordered 01/14/21 Ordered By: Reina Manzo Diet: regular diet Activity on Discharge: As tolerated Stand Alone Forms: Patient Portal Discharge page, Community Support Care Plan Goals: Continue supportive care for cognitive impairment. Health Concerns: follow up PCP Plan of Treatment: 1. Pt needs medication management as he is not able to do so due to dementia Assessment: Pt is less combative, less irritable and accepting care. Discharge Date/Time: 01/14/21 14:15 Mental Status Exam Mental Status Exam Narrative: Appearance: tall male, casually groomed, fair hygiene, in NAD Behavior: pleasant but not fully engage in conversation with this policy writer sales Psychomotor: no agitation or retardation noted Speech: mumbles at times, some degree of expressive aphasia noted TP: derailment TC: no signs of psychosis, wanting to go home Mood: okay Affect:congruent, SI:none HI:none AH/VH:did not appear to be internally preoccupied Delusions:some suspiciousness, but this may be due to confusion/disorientation rather than neri delusional content Insight/judgment:impaired x 2 Memory/cog: alert, not oriented to situation, month, date/year. severely impaired. Data Data Completed and Pending Completed studies during hospitalization [Text1]: 01/09/21 01/13/21 06:42 07:32 WBC 6.0 RBC 3.72 L Hgb 11.9 L Hct 35.5 L MCV 95.4 MCH 32.0 MCHC 33.5 RDW 12.5 Plt Count 191 MPV 8.6 L Immature Gran % (Auto) 0.3 Neut % (Auto) 66.4 Lymph % (Auto) 24.8 Howard % (Auto) 6.4 Eos % (Auto) 1.8 Baso % (Auto) 0.3 Lymph # (Auto) 1.5 Howard # (Auto) 0.4 Eos # (Auto) 0.1 Baso # (Auto) 0.0 Abs Immat Gran (auto) 0.02 Absolute Neuts (auto) 4.0 Absolute Nucleated RBC 0.000 Nucleated RBC % (auto) 0.0 Sodium 139 Potassium 4.4 Chloride 106 Carbon Dioxide 26 Anion Gap 11 L BUN 20 H Creatinine 1.01 Estim Creat Clear Calc 64.5 Estimated GFR > 60 Fasting Glucose 89 Calcium 8.8 Total Bilirubin 1.0 AST 23 ALT 24 Alkaline Phosphatase 89 Total Protein 6.2 L Albumin 3.6 Triglycerides 58 Cholesterol 127 LDL Cholesterol, Calc 82 HDL Cholesterol 34 Imaging Diagnostic Imaging Impressions Chest X-Ray 12/28/20 15:59 IMPRESSION: No acute pulmonary disease. No significant change from prior study. Head CT 12/28/20 15:59 IMPRESSION: 1. No acute abnormalities. 2. Marked white matter chronic small vessel ischemic disease and moderate diffuse parenchymal volume loss of the brain unchanged compared with 12/18/2020 and 05/06/2020. 3. 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 No disproportionate focal edema in the adjacent brain parenchyma. Ankle X-Ray 12/29/20 02:52 IMPRESSION: No acute findings identified. Soft tissue swelling. Degenerative changes. DS: Summary Hospital Course Hospital Course: Mr. Rodriguez is a 80 year-old male with hx of Dementia, unclear etiology for at least past 3 years. He was brought to [facility] ED from [facility] where he was receiving intensive physical therapy due to increase combativeness and agitation, especially during evening. Most information is gathered from his , Laurie, as pt is grossly disoriented to situation, place, month, year. Per , pt's memory/cognition has significantly deteriorated for the past 8 months. He is currently residing at home with , but states plan is to transition with to memory unit at [facility]. reports pt for past 8 months has been confused as to where he is and asking her to bring him home, even they are home. also reports some suspiciousness, as pt at times reports he thinks someone may have broken in. reports that at times and since beginning of cognitive decline, patient has reported seeing animals on and off. also reports he has resting rolling pin tremor. It was not noticed on exam today. Past Psychiatric History: Inpatient: none OP: none currently, but plan is for pt to be followed by psychiatric provider at [facility] Suicide attempts: none Past trials: seroquel, sertraline. HOSPITAL COURSE Pt was admitted on CV- cosigned by his HCP. He was placed on 5 minutes checks due to lack of safety awareness. Most information was gathered from his as pt presents with severe cognitive impairments including derailment and expressive aphasia. Pt initially had episodes of combativeness in the afternoons. He was started on seroquel, which was titrated. His combativeness overtime significantly decrease. He was ambulating with walker. He was sleeping and eating well. He did have a one time dose of haldol which seemed to help for agitation- which in the future could be considered if seroquel not fully effective. Prior to discharge he had several days without any episodes of combativeness nor need for PRN or IM medications. He was not oriented to place, month, year or situation. He was discharged to [facility] memory unit in [place] with psychiatric care at facility. Status at Discharge Cognitive/behavioral status at discharge: Pt less agitated and combative, especially in evenings. No episodes of aggression towards self or others several days prior to discharge. No SI/HI. Memory significantly impaired. Functional status at discharge: uses cane/walker Overall status at discharge: patient is progressing back to baseline Time Spent with Patient Time attestation: Total time spent providing and/or coordinating discharge services: Time spent: Less than 30 minutes Specific discharge activities: discussed with discharge plan and medicat ions throughout this admission and at time of discharge.
[2021-01-14 10:34] LABS: COVID-19 Test Negative (Negative)
--- NOTE | 2021-01-14 14:35 | PC.NURSE ---
Pt left floor at 1415 with , pt refused to get into wheelchair if his was not present. Laurie () was called to come and assist. Pt was wheeled out with any issues. All belongings were given to the . All paperwork was handed over to the facility front desk representative.
== END 2021-01-14 14:15 | disposition home or self-care (01) | DRG 884 ==
LOC: HO.ED 01-02 10:08 → HO.PGERI 01-08 14:46
PROVIDERS: Nurse Practitioner Family; Admitting Provider Psychiatry & Neurology Psychiatry; Emergency Provider Emergency Medicine; PCP Internal Medicine; Visit Provider Social Worker
DX: F03.91 Unspecified dementia, unspecified severity, with behavioral disturbance (principal); D68.51 Activated protein C resistance; R47.01 Aphasia; R31.0 Gross hematuria; Z86.718 Personal history of other venous thrombosis and embolism; Z20.822 Contact with and (suspected) exposure to COVID-19; Z85.820 Personal history of malignant melanoma of skin; Z87.891 Personal history of nicotine dependence; Z79.82 Long term (current) use of aspirin; Z79.899 Other long term (current) drug therapy
CPT/HCPCS: 36415; 70450; 71045; 73610; 80048; 80053; 80061; 80076; 81003; 82607; 82746; 83735; 84443; 85025; 87635; 93005; 97162; 99285; J1200; J2060; Q0163

== ENCOUNTER → 2021-06-13 14:25 | Outpatient (BNVA) | payer MEDICARE, SELFPAY | PROVIDERS: PCP Internal Medicine; Visit Provider Urology | DX: R31.29 Other microscopic hematuria (principal); R31.0 Gross hematuria; R39.12 Poor urinary stream; N40.1 Benign prostatic hyperplasia with lower urinary tract symptoms; N13.8 Other obstructive and reflux uropathy; I10 Essential (primary) hypertension; F01.50 Vascular dementia, unspecified severity, without behavioral disturbance, psychotic disturbance, mood disturbance, and anxiety; Z87.891 Personal history of nicotine dependence; Z91.030 Bee allergy status; Z88.8 Allergy status to other drugs, medicaments and biological substances | CPT/HCPCS: 99212 ==

== ENCOUNTER 2021-09-03 17:37 | Emergency (ER) | payer MEDICARE, SELFPAY ==
--- NOTE | ~2021-09-03 | CT_ITS ---
EXAMINATION: CT HEAD WITHOUT CONTRAST CLINICAL INFORMATION: Altered mental status. COMPARISON: CT head from 12/28/2020. TECHNIQUE: Contiguous axial imaging was performed from the skull base to vertex without intravenous administration of contrast. This CT examination was performed using dose optimization techniques as appropriate, variously including the following: *Automated exposure control. *Adjustment of mA and/or kV according to patient size (this includes techniques or standardized protocols for targeted exams where dose is matched to indication/reason for exam; i.e. extremities or head). *Use of iterative reconstruction technique. DLP: 874 mGy-cm FINDINGS: There is no evidence of acute intracranial hemorrhage or edematous territorial infarction. Confluent hypoattenuation in the periventricular and deep white matter. Wagner-white matter differentiation is preserved. Proportional prominence of the ventricles and sulcal spaces. No evidence for obstructive hydrocephalus. Chronic plaque-like calcification along the maral dann. No abnormal mass effect or midline shift. No extra-axial fluid collections. Calcific atherosclerotic disease of the intracranial internal carotid arteries. No hyperdense vessel sign. No acute soft tissue or osseous abnormalities. Mild mucosal thickening of the visualized paranasal sinuses. The mastoid air cells and middle ear cavities are clear. Bilateral lens extractions. CT/CT head/brain wo con IMPRESSION: 1. No evidence of acute intracranial hemorrhage or edematous territorial infarction. 2. Extensive underlying microangiopathy and generalized cerebral volume loss.
[2021-09-03 17:50] VITALS: BP 146/75; BP 149/76; PULSE 75; PULSE 82; RESP 17; TEMP 36.8; O2SAT 100; O2SAT 99; BMI 25.7
--- NOTE | 2021-09-03 18:19 | ED_ITS ---
HPI - Psych General Chief Complaint: Psychiatric Symptoms <JORDYN Gómez - Last Filed: 09/04/21 01:53> Stated Complaint: behavioral <JORDYN Gómez Last Filed: 09/04/21 01:53> Time Seen by Provider: 09/03/21 18:07 <JORDYN Gómez - Last Filed: 09/04/21 01:53> Source: EMS <JORDYN Gómez - Last Filed: 09/04/21 01:53> Mode of arrival: EMS <JORDYN Gómez Last Filed: 09/04/21 01:53> Limitations: other (Patient has dementia, not answering questions appropriately.) <JORDYN Gómez Last Filed: 09/04/21 01:53> History of Present Illness HPI Narrative: This is a 76-year-old male past medical history significant for Montgomery's esophagus, dementia, hypertension, factor 5 Leiden, GERD, hematuria, frequent falls, malignant melanoma presenting to the emergency department via ambulance from a locked dementia unit where staff report that patient has been acting strange, combative, hitting other residents with his cane. They report that patient at baseline is confused and does not answer questions appropriately ho wever he has seemed a little bit different than his baseline. Denies recent trauma. Patient is usually not combative. <JORDYN Gómez Last Filed: 09/04/21 01:53> MD complaint: other (Behavioral disturbance.) <JORDYN Gómez - Last Filed: 09/04/21 01:53> Onset (ago): day(s) (1) <JORDYN Gómez Last Filed: 09/04/21 01:53> Duration: getting worse <JORDYN Gómez Last Filed: 09/04/21 01:53> History of same: No <JORDYN Gómez Last Filed: 09/04/21 01:53> Relieving factors: none <JORDYN Gómez Last Filed: 09/04/21 01:53> Exacerbating factors: none <JORDYN Gómez Last Filed: 09/04/21 01:53> Associated psychiatric symptoms: none <JORDYN Gómez Last Filed: 09/04/21 01:53> Associated symptoms: denies other symptoms <JORDYN Gómez Last Filed: 09/04/21 01:53> Treatments prior to arrival: none <JORDYN Gómez Last Filed: 09/04/21 01:53> Related Data Home Medications: Home Medications Medication Instructions Recorded Confirmed ammonium lactate 12 % topical cream 1 applic TOPICAL BEDTIME 09/03/21 09/03/21 cholecalciferol (vitamin D3) 25 25 mcg PO DAILY 09/03/21 09/03/21 mcg (1,000 unit) tablet (Vitamin D3) diclofenac sodium 1 % topical gel 4 g TOPICAL TID 09/03/21 09/03/21 gabapentin 100 mg capsule 1 cap PO BID PRN 09/03/21 09/03/21 metoprolol tartrate 100 mg tablet 100 mg PO BID 09/03/21 09/03/21 potassium chloride 20 mEq 2 tab PO DAILY 09/03/21 09/03/21 tablet,extended release(part/cryst) sertraline 100 mg tablet 1 tab PO DAILY 09/03/21 09/03/21 Previous Rx's Medication Instructions Recorded aspirin 81 mg tablet,delayed 81 mg PO DAILY #30 tab 01/14/21 release melatonin 3 mg tablet 6 mg PO BEDTIME #30 tab 01/14/21 quetiapine 50 mg tablet 50 mg PO TID #90 tab 01/14/21 simvastatin 40 mg tablet 40 mg PO BEDTIME #30 tab 01/14/21 tamsulosin 0.4 mg capsule 0.4 mg PO BEDTIME 90 Days #90 cap 06/13/21 <JORDYN Gómez Last Filed: 09/04/21 01:53> Allergies/Adverse Reactions: Allergies Allergy/AdvReac Type Severity Reaction Status Date / Time bee pollen [BEE STINGS] Allergy Unknown UNKNOWN Verified 06/13/21 14:37 lisinopril [LISINOPRIL] Allergy Unknown FACIAL Verified 06/13/21 14:37 EDEMA <JORDYN Gómez Last Filed: 09/04/21 01:53> Review of Systems Review of Systems: Unable to obtain due to patient's mental status. <JORDYN Gómez - Last Filed: 09/04/21 01:53> Yes Unobtainable due to mental status <JORDYN Gómez - Last Filed: 09/04/21 01:53> [facility] Past Medical History Attestation statement: The following information was validated with the patient. <JORDYN Gómez - Last Filed: 09/04/21 01:53> Source: old records reviewed and nursing notes reviewed <JORDYN Gómez - Last Filed: 09/04/21 01:53> Medical History: Medical History Anxiety Dementia Heterozygous factor V Leiden mutation History of GI bleed History of melanoma Hx of deep venous thrombosis Hypertension Vascular dementia <JORDYN Gómez - Last Filed: 09/04/21 01:53> Social History Social History: Social History Household Members: Spouse Housing: House Do you presently have visiting nurse or other home services: No Alcohol intake: current Alcohol intake frequency: 3 or more drinks per day Alcohol type: beer Patient Tobacco Use Status: Former Tobacco user Quit Date: over 40 years ago Tobacco use type: Cigarette Years Smoked: 15 e-Cigarette/Vaping Use: Never Used Second Hand Smoke Exposure: No Use of substances other than those prescribed or required for medical reasons: No Advance Directives: No Advance Directives Information Provided: No service: Yes Sexual orientation: Straight/Heterosexual <JORDYN Gómez - Last Filed: 09/04/21 01:53> Physical Exam Vital Signs: Vital Signs: Last Vital Signs Temp 98.7 F 09/04/21 04:10 Pulse 82 09/04/21 06:16 Resp 15 09/04/21 06:16 BP 139/66 09/04/21 06:16 Pulse Ox 96 09/04/21 06:16 BMI result Body Mass Index 25.7 Vital signs stable. <JORDYN Gómez - Last Filed: 09/04/21 01:53> Vital Signs: Last Vital Signs Temp 98.7 F 09/04/21 04:10 Pulse 82 09/04/21 06:16 Resp 15 09/04/21 06:16 BP 139/66 09/04/21 06:16 Pulse Ox 96 09/04/21 06:16 BMI result Body Mass Index 25.7 <Debra Ibrahim MD - Last Filed: 09/04/21 07:24> Appearance: Alert.? Awake, oriented to person, moving all extremities. No acute distress.? Head: Normocephalic, atraumatic, no step-offs or deformities Eyes: Pupils equal, round and reactive to light.? ENT: Pharynx normal.? Neck: Normal inspection.? Neck supple.? CVS: Normal heart rate and rhythm.? Pulses normal.? Respiratory: No respiratory distress.? Breath sounds normal.? Abdomen: Soft and nontender.? Skin: Skin warm and dry.? Normal skin color.? Normal skin turgor.? Extremities: No lower extremity edema.? No calf ttp. 5/5 strength to bilateral upper and lower extremities Back: No midline tenderness, no C-spine tenderness, full range of motion, no CVA tenderness bilaterally Neuro: Patient awake, alert oriented to person not time, or situation. Moving all extremities. No motor deficit.? No sensory deficit. Exam at patients baseline based off previous note and based off report. <JORDYN Gómez - Last Filed: 09/04/21 01:53> Course Reevaluation(s) Reevaluation #1: Patient is noted to have a pancytopenia which has been present the past, last time he had pancytopenia was on December 18, 2020. Patient's potassium is noted to be elevated at 5.8, higher than previous, on May 26, 2021 his potassium is 5.3. He will be given 10 gm of Lokelma. BUN 20, creatinine 1.18 appears to be at baseline. UA negative. Utox negative. ETOH negative. <JORDYN Gómez - Last Filed: 09/04/21 01:53> Time: 19:42 <JORDYN Gómez - Last Filed: 09/04/21 01:53> Reevaluation #2: Patient's CT scan with no acute findings. Patient's potassium will be rechecked in about 3 hours. At this time patient will be placed in physician observation to allow more time for patient to be seen by the care team. At time observation was started patient was calm and cooperative, in no acute distress. Vital signs were stable. Patient's workup was mostly negative, however, he was noted to have an elevated potassium, this was treated with 10 gm of Lokelma. Will continue to monitor. <JORDYN Gómez - Last Filed: 09/04/21 01:53> Time: 20:02 <JORDYN Gómez - Last Filed: 09/04/21 01:53> Reevaluation #3: Patient's to slightly elevated will repeat in 3 hours to ensure this is not ACS. <JORDYN Gómez - Last Filed: 09/04/21 01:53> Time: 19:30 <JORDYN Gómez - Last Filed: 09/04/21 01:53> Additional Reevaluation(s): 0151 Trop plateaued, unlikley ACS. Potassium improved with Lokelma. At this time patient placed in physician observation to time for patient to be evaluated by the CARE team tomorrow morning. At time observation started patient's vital signs are stable, patient is in no distress , cooperative. PE unchanged from initial. WIll continue to monitor. Sign out given to <JORDYN Gómez - Last Filed: 09/04/21 01:53> Consultations Consultation #1: Overnight patient had not issues,Had a good night's rest. patient reporting that he feels cold, requesting warm blanket. Otherwise patient has no complaints. Per Nursing, the night was uneventful. Patient's vitals are stable <Debra Ibrahim MD - Last Filed: 09/04/21 07:24> Time: 07:23 <Debra Ibrahim MD - Last Filed: 09/04/21 07:24> MDM - Psych MDM Narrative Medical decision making narrative: 1822 80 yo m hx melanoma, dementia, frequent falls, htn, gerd, barrets esophagus presents to ED w/ aggressive behavior towards residence at the dementia unit he resides alone. Patient appears well, he is unable to answer questions due to his advanced dementia. He is alert to person. Appears comfortable, laughing. Physical examination benign, patient's neuro exam appears to be at his baseline. Plan at this time is to obtain basic labs, COVID, drug screen, UA, ethanol and a CT of the head/brain. Although trauma was not reported patient is not a good historian will rule out a traumatic brain injury/ICH. <JORDYN Gómez - Last Filed: 09/04/21 01:53> Medical Records Attestation: I reviewed the patient's medical records. <JORDYN Gómez - Last Filed: 09/04/21 01:53> Lab Data Attestation: I reviewed the patient's lab results. <JORDYN Gómez - Last Filed: 09/04/21 01:53> Result diagrams: : 09/03/21 19:06 09/03/21 22:54 <JORDYN Gómez - Last Filed: 09/04/21 01:53> Labs: Lab Results 09/03/21 09/03/21 09/03/21 Range/Units 19:02 19:02 19:02 WBC (4.8-10.8) X10*3/uL RBC (4.60-5.80) X10*6/uL Hgb (14.0-18.0) g/dl Hct (42.0-52.0) % MCV (80.0-98.0) fL MCH (27.0-33.0) pg MCHC (31.0-36.0) g/dl RDW (11.0-16.0) % Plt Count (160-400) X10*3/uL MPV (9.4-12.4) fL Immature Gran % (Auto) (0.0-0.4) % Neut % (Auto) (45-73) % Lymph % (Auto) (20-40) % Schleicher % (Auto) (2-11) % Eos % (Auto) (0-4) % Baso % (Auto) (0-2) % Lymph # (Auto) (1.2-4.9) X10*3/uL Schleicher # (Auto) (0.1-1.2) X10*3/uL Eos # (Auto) (0.0-0.4) X10*3/uL Baso # (Auto) (0.0-0.2) X10*3/uL Abs Immat Gran (auto) (0.00-0.03) X10*3/uL Absolute Neuts (auto) (2.0-8.3) x10*3/uL Absolute Nucleated RBC (0.0-0.012) X10*3/uL Nucleated RBC % (auto) (0.0-0.2) /100WBC Sodium (135-145) mmol/L Potassium (3.3-5.1) mmol/L Chloride (96-108) mmol/L Carbon Dioxide (22-29) mmol/L Anion Gap (12-20) BUN (9-16) mg/dL Creatinine (0.5-1.4) mg/dL Estim Creat Clear Calc Estimated GFR Random Glucose (60-115) mg/dL Calcium (8.4-10.2) mg/dL Magnesium (1.6-2.6) mg/dL Total Bilirubin (0.0-1.0) mg/dL AST (5-37) U/L ALT (0-40) U/L Alkaline Phosphatase (39-117) U/L Troponin I High Sens (<3.5-35.0) ng/L Total Protein (6.5-8.0) g/dL Albumin (3.5-5.0) g/dL Urine Color YELLOW Urine Appearance HAZY Urine pH 6.5 (5.0-8.0) Ur Specific Elizabeth 1.015 (1.005-1.025) Urine Protein NEG (NEG-TRACE) MG/DL Urine Glucose (UA) NEG (NEG) MG/DL Urine Ketones NEG (NEG) MG/DL Urine Blood NEG (NEG) Urine Nitrite NEG (NEG) Ur Leukocyte Esterase TRACE H (NEG) Urine RBC 0-2 (0) /HPF Urine WBC 5-9 H (0-4) /HPF Ur Squamous Epith Cells 2+ /LPF Urine Bacteria 1+ /LPF Urine Mucus 1+ /LPF Urine Opiates Screen Not Detected (Not Detect) Urine Fentanyl Screen Not Detected (Not Detect) Ur Barbiturates Screen Not Detected (Not Detect) Ur Phencyclidine Scrn Not Detected (Not Detect) Ur Amphetamines Screen Not Detected (Not Detect) U Benzodiazepines Scrn Not Detected (Not Detect) Urine Cocaine Screen Not Detected (Not Detect) U Marijuana (THC) Screen Not Detected (Not Detect) Ethyl Alcohol mg/dL COVID-19 ([facility]) Negative (Negative) COVID-19 Clin Com See Note 09/03/21 09/03/21 09/03/21 Range/Units 19:06 19:06 19:06 WBC 4.7 L (4.8-10.8) X10*3/uL RBC 3.90 L (4.60-5.80) X10*6/uL Hgb 12.2 L (14.0-18.0) g/dl Hct 38.0 L (42.0-52.0) % MCV 97.4 (80.0-98.0) fL MCH 31.3 (27.0-33.0) pg MCHC 32.1 (31.0-36.0) g/dl RDW 14.4 (11.0-16.0) % Plt Count 151 L (160-400) X10*3/uL MPV 8.9 L (9.4-12.4) fL Immature Gran % (Auto) 0.2 (0.0-0.4) % Neut % (Auto) 59.7 (45-73) % Lymph % (Auto) 28.5 (20-40) % Schleicher % (Auto) 9.1 (2-11) % Eos % (Auto) 2.1 (0-4) % Baso % (Auto) 0.4 (0-2) % Lymph # (Auto) 1.3 (1.2-4.9) X10*3/uL Schleicher # (Auto) 0.4 (0.1-1.2) X10*3/uL Eos # (Auto) 0.1 (0.0-0.4) X10*3/uL Baso # (Auto) 0.0 (0.0-0.2) X10*3/uL Abs Immat Gran (auto) 0.01 (0.00-0.03) X10*3/uL Absolute Neuts (auto) 2.8 (2.0-8.3) x10*3/uL Absolute Nucleated RBC 0.000 (0.0-0.012) X10*3/uL Nucleated RBC % (auto) 0.0 (0.0-0.2) /100WBC Sodium 140 (135-145) mmol/L Potassium 5.8 H (3.3-5.1) mmol/L Chloride 108 (96-108) mmol/L Carbon Dioxide 25 (22-29) mmol/L Anion Gap 13 (12-20) BUN 20 H (9-16) mg/dL Creatinine 1.18 (0.5-1.4) mg/dL Estim Creat Clear Calc 55.7 Estimated GFR 60 Random Glucose 94 (60-115) mg/dL Calcium 9.5 (8.4-10.2) mg/dL Magnesium 2.1 (1.6-2.6) mg/dL Total Bilirubin 0.7 (0.0-1.0) mg/dL AST 26 (5-37) U/L ALT 21 (0-40) U/L Alkaline Phosphatase 87 (39-117) U/L Troponin I High Sens (<3.5-35.0) ng/L Total Protein 7.4 (6.5-8.0) g/dL Albumin 4.0 (3.5-5.0) g/dL Urine Color Urine Appearance Urine pH (5.0-8.0) Ur Specific Elizabeth (1.005-1.025) Urine Protein (NEG-TRACE) MG/DL Urine Glucose (UA) (NEG) MG/DL Urine Ketones (NEG) MG/DL Urine Blood (NEG) Urine Nitrite (NEG) Ur Leukocyte Esterase (NEG) Urine RBC (0) /HPF Urine WBC (0-4) /HPF Ur Squamous Epith Cells /LPF Urine Bacteria /LPF Urine Mucus /LPF Urine Opiates Screen (Not Detect) Urine Fentanyl Screen (Not Detect) Ur Barbiturates Screen (Not Detect) Ur Phencyclidine Scrn (Not Detect) Ur Amphetamines Screen (Not Detect) U Benzodiazepines Scrn (Not Detect) Urine Cocaine Screen (Not Detect) U Marijuana (THC) Screen (Not Detect) Ethyl Alcohol < 10 mg/dL COVID-19 ([facility]) (Negative) COVID-19 Clin Com 09/03/21 09/03/21 09/03/21 Range/Units 19:06 22:54 22:54 WBC (4.8-10.8) X10*3/uL RBC (4.60-5.80) X10*6/uL Hgb (14.0-18.0) g/dl Hct (42.0-52.0) % MCV (80.0-98.0) fL MCH (27.0-33.0) pg MCHC (31.0-36.0) g/dl RDW (11.0-16.0) % Plt Count (160-400) X10*3/uL MPV (9.4-12.4) fL Immature Gran % (Auto) (0.0-0.4) % Neut % (Auto) (45-73) % Lymph % (Auto) (20-40) % Schleicher % (Auto) (2-11) % Eos % (Auto) (0-4) % Baso % (Auto) (0-2) % Lymph # (Auto) (1.2-4.9) X10*3/uL Schleicher # (Auto) (0.1-1.2) X10*3/uL Eos # (Auto) (0.0-0.4) X10*3/uL Baso # (Auto) (0.0-0.2) X10*3/uL Abs Immat Gran (auto) (0.00-0.03) X10*3/uL Absolute Neuts (auto) (2.0-8.3) x10*3/uL Absolute Nucleated RBC (0.0-0.012) X10*3/uL Nucleated RBC % (auto) (0.0-0.2) /100WBC Sodium 140 (135-145) mmol/L Potassium 5.2 H (3.3-5.1) mmol/L Chloride 108 (96-108) mmol/L Carbon Dioxide 26 (22-29) mmol/L Anion Gap 11 L (12-20) BUN 21 H (9-16) mg/dL Creatinine 1.21 (0.5-1.4) mg/dL Estim Creat Clear Calc 54.3 Estimated GFR 58 Random Glucose 138 H D (60-115) mg/dL Calcium 9.1 (8.4-10.2) mg/dL Magnesium (1.6-2.6) mg/dL Total Bilirubin (0.0-1.0) mg/dL AST (5-37) U/L ALT (0-40) U/L Alkaline Phosphatase (39-117) U/L Troponin I High Sens 20.3 19.1 (<3.5-35.0) ng/L Total Protein (6.5-8.0) g/dL Albumin (3.5-5.0) g/dL Urine Color Urine Appearance Urine pH (5.0-8.0) Ur Specific Elizabeth (1.005-1.025) Urine Protein (NEG-TRACE) MG/DL Urine Glucose (UA) (NEG) MG/DL Urine Ketones (NEG) MG/DL Urine Blood (NEG) Urine Nitrite (NEG) Ur Leukocyte Esterase (NEG) Urine RBC (0) /HPF Urine WBC (0-4) /HPF Ur Squamous Epith Cells /LPF Urine Bacteria /LPF Urine Mucus /LPF Urine Opiates Screen (Not Detect) Urine Fentanyl Screen (Not Detect) Ur Barbiturates Screen (Not Detect) Ur Phencyclidine Scrn (Not Detect) Ur Amphetamines Screen (Not Detect) U Benzodiazepines Scrn (Not Detect) Urine Cocaine Screen (Not Detect) U Marijuana (THC) Screen (Not Detect) Ethyl Alcohol mg/dL COVID-19 ([facility]) (Negative) COVID-19 Clin Com <JORDYN Gómez - Last Filed: 09/04/21 01:53> Lab Results 09/03/21 09/03/21 09/03/21 Range/Units 19:02 19:02 19:02 WBC (4.8-10.8) X10*3/uL RBC (4.60-5.80) X10*6/uL Hgb (14.0-18.0) g/dl Hct (42.0-52.0) % MCV (80.0-98.0) fL MCH (27.0-33.0) pg MCHC (31.0-36.0) g/dl RDW (11.0-16.0) % Plt Count (160-400) X10*3/uL MPV (9.4-12.4) fL Immature Gran % (Auto) (0.0-0.4) % Neut % (Auto) (45-73) % Lymph % (Auto) (20-40) % Schleicher % (Auto) (2-11) % Eos % (Auto) (0-4) % Baso % (Auto) (0-2) % Lymph # (Auto) (1.2-4.9) X10*3/uL Schleicher # (Auto) (0.1-1.2) X10*3/uL Eos # (Auto) (0.0-0.4) X10*3/uL Baso # (Auto) (0.0-0.2) X10*3/uL Abs Immat Gran (auto) (0.00-0.03) X10*3/uL Absolute Neuts (auto) (2.0-8.3) x10*3/uL Absolute Nucleated RBC (0.0-0.012) X10*3/uL Nucleated RBC % (auto) (0.0-0.2) /100WBC Sodium (135-145) mmol/L Potassium (3.3-5.1) mmol/L Chloride (96-108) mmol/L Carbon Dioxide (22-29) mmol/L Anion Gap (12-20) BUN (9-16) mg/dL Creatinine (0.5-1.4) mg/dL Estim Creat Clear Calc Estimated GFR Random Glucose (60-115) mg/dL Calcium (8.4-10.2) mg/dL Magnesium (1.6-2.6) mg/dL Total Bilirubin (0.0-1.0) mg/dL AST (5-37) U/L ALT (0-40) U/L Alkaline Phosphatase (39-117) U/L Troponin I High Sens (<3.5-35.0) ng/L Total Protein (6.5-8.0) g/dL Albumin (3.5-5.0) g/dL Urine Color YELLOW Urine Appearance HAZY Urine pH 6.5 (5.0-8.0) Ur Specific Elizabeth 1.015 (1.005-1.025) Urine Protein NEG (NEG-TRACE) MG/DL Urine Glucose (UA) NEG (NEG) MG/DL Urine Ketones NEG (NEG) MG/DL Urine Blood NEG (NEG) Urine Nitrite NEG (NEG) Ur Leukocyte Esterase TRACE H (NEG) Urine RBC 0-2 (0) /HPF Urine WBC 5-9 H (0-4) /HPF Ur Squamous Epith Cells 2+ /LPF Urine Bacteria 1+ /LPF Urine Mucus 1+ /LPF Urine Opiates Screen Not Detected (Not Detect) Urine Fentanyl Screen Not Detected (Not Detect) Ur Barbiturates Screen Not Detected (Not Detect) Ur Phencyclidine Scrn Not Detected (Not Detect) Ur Amphetamines Screen Not Detected (Not Detect) U Benzodiazepines Scrn Not Detected (Not Detect) Urine Cocaine Screen Not Detected (Not Detect) U Marijuana (THC) Screen Not Detected (Not Detect) Ethyl Alcohol mg/dL COVID-19 ([facility]) Negative (Negative) COVID-19 Clin Com See Note 09/03/21 09/03/21 09/03/21 Range/Units 19:06 19:06 19:06 WBC 4.7 L (4.8-10.8) X10*3/uL RBC 3.90 L (4.60-5.80) X10*6/uL Hgb 12.2 L (14.0-18.0) g/dl Hct 38.0 L (42.0-52.0) % MCV 97.4 (80.0-98.0) fL MCH 31.3 (27.0-33.0) pg MCHC 32.1 (31.0-36.0) g/dl RDW 14.4 (11.0-16.0) % Plt Count 151 L (160-400) X10*3/uL MPV 8.9 L (9.4-12.4) fL Immature Gran % (Auto) 0.2 (0.0-0.4) % Neut % (Auto) 59.7 (45-73) % Lymph % (Auto) 28.5 (20-40) % Schleicher % (Auto) 9.1 (2-11) % Eos % (Auto) 2.1 (0-4) % Baso % (Auto) 0.4 (0-2) % Lymph # (Auto) 1.3 (1.2-4.9) X10*3/uL Schleicher # (Auto) 0.4 (0.1-1.2) X10*3/uL Eos # (Auto) 0.1 (0.0-0.4) X10*3/uL Baso # (Auto) 0.0 (0.0-0.2) X10*3/uL Abs Immat Gran (auto) 0.01 (0.00-0.03) X10*3/uL Absolute Neuts (auto) 2.8 (2.0-8.3) x10*3/uL Absolute Nucleated RBC 0.000 (0.0-0.012) X10*3/uL Nucleated RBC % (auto) 0.0 (0.0-0.2) /100WBC Sodium 140 (135-145) mmol/L Potassium 5.8 H (3.3-5.1) mmol/L Chloride 108 (96-108) mmol/L Carbon Dioxide 25 (22-29) mmol/L Anion Gap 13 (12-20) BUN 20 H (9-16) mg/dL Creatinine 1.18 (0.5-1.4) mg/dL Estim Creat Clear Calc 55.7 Estimated GFR 60 Random Glucose 94 (60-115) mg/dL Calcium 9.5 (8.4-10.2) mg/dL Magnesium 2.1 (1.6-2.6) mg/dL Total Bilirubin 0.7 (0.0-1.0) mg/dL AST 26 (5-37) U/L ALT 21 (0-40) U/L Alkaline Phosphatase 87 (39-117) U/L Troponin I High Sens (<3.5-35.0) ng/L Total Protein 7.4 (6.5-8.0) g/dL Albumin 4.0 (3.5-5.0) g/dL Urine Color Urine Appearance Urine pH (5.0-8.0) Ur Specific Elizabeth (1.005-1.025) Urine Protein (NEG-TRACE) MG/DL Urine Glucose (UA) (NEG) MG/DL Urine Ketones (NEG) MG/DL Urine Blood (NEG) Urine Nitrite (NEG) Ur Leukocyte Esterase (NEG) Urine RBC (0) /HPF Urine WBC (0-4) /HPF Ur Squamous Epith Cells /LPF Urine Bacteria /LPF Urine Mucus /LPF Urine Opiates Screen (Not Detect) Urine Fentanyl Screen (Not Detect) Ur Barbiturates Screen (Not Detect) Ur Phencyclidine Scrn (Not Detect) Ur Amphetamines Screen (Not Detect) U Benzodiazepines Scrn (Not Detect) Urine Cocaine Screen (Not Detect) U Marijuana (THC) Screen (Not Detect) Ethyl Alcohol < 10 mg/dL COVID-19 ([facility]) (Negative) COVID-19 Clin Com 09/03/21 09/03/21 09/03/21 Range/Units 19:06 22:54 22:54 WBC (4.8-10.8) X10*3/uL RBC (4.60-5.80) X10*6/uL Hgb (14.0-18.0) g/dl Hct (42.0-52.0) % MCV (80.0-98.0) fL MCH (27.0-33.0) pg MCHC (31.0-36.0) g/dl RDW (11.0-16.0) % Plt Count (160-400) X10*3/uL MPV (9.4-12.4) fL Immature Gran % (Auto) (0.0-0.4) % Neut % (Auto) (45-73) % Lymph % (Auto) (20-40) % Schleicher % (Auto) (2-11) % Eos % (Auto) (0-4) % Baso % (Auto) (0-2) % Lymph # (Auto) (1.2-4.9) X10*3/uL Schleicher # (Auto) (0.1-1.2) X10*3/uL Eos # (Auto) (0.0-0.4) X10*3/uL Baso # (Auto) (0.0-0.2) X10*3/uL Abs Immat Gran (auto) (0.00-0.03) X10*3/uL Absolute Neuts (auto) (2.0-8.3) x10*3/uL Absolute Nucleated RBC (0.0-0.012) X10*3/uL Nucleated RBC % (auto) (0.0-0.2) /100WBC Sodium 140 (135-145) mmol/L Potassium 5.2 H (3.3-5.1) mmol/L Chloride 108 (96-108) mmol/L Carbon Dioxide 26 (22-29) mmol/L Anion Gap 11 L (12-20) BUN 21 H (9-16) mg/dL Creatinine 1.21 (0.5-1.4) mg/dL Estim Creat Clear Calc 54.3 Estimated GFR 58 Random Glucose 138 H D (60-115) mg/dL Calcium 9.1 (8.4-10.2) mg/dL Magnesium (1.6-2.6) mg/dL Total Bilirubin (0.0-1.0) mg/dL AST (5-37) U/L ALT (0-40) U/L Alkaline Phosphatase (39-117) U/L Troponin I High Sens 20.3 19.1 (<3.5-35.0) ng/L Total Protein (6.5-8.0) g/dL Albumin (3.5-5.0) g/dL Urine Color Urine Appearance Urine pH (5.0-8.0) Ur Specific Elizabeth (1.005-1.025) Urine Protein (NEG-TRACE) MG/DL Urine Glucose (UA) (NEG) MG/DL Urine Ketones (NEG) MG/DL Urine Blood (NEG) Urine Nitrite (NEG) Ur Leukocyte Esterase (NEG) Urine RBC (0) /HPF Urine WBC (0-4) /HPF Ur Squamous Epith Cells /LPF Urine Bacteria /LPF Urine Mucus /LPF Urine Opiates Screen (Not Detect) Urine Fentanyl Screen (Not Detect) Ur Barbiturates Screen (Not Detect) Ur Phencyclidine Scrn (Not Detect) Ur Amphetamines Screen (Not Detect) U Benzodiazepines Scrn (Not Detect) Urine Cocaine Screen (Not Detect) U Marijuana (THC) Screen (Not Detect) Ethyl Alcohol mg/dL COVID-19 ([facility]) (Negative) COVID-19 Clin Com <Debra Ibrahim MD - Last Filed: 09/04/21 07:24> ECG Data Attestation: I personally reviewed and interpreted this ECG as follows: <JORDYN Gómez - Last Filed: 09/04/21 01:53> ECG interpretation date: 09/03/21 <JORDYN Gómez - Last Filed: 09/04/21 01:53> ECG interpretation time: 20:23 <JORDYN Gómez - Last Filed: 09/04/21 01:53> Prior ECG tracings: available for review <JORDYN Gómez - Last Filed: 09/04/21 01:53> Interpretation: Ventricular rate of 74, MS normal, QRS normal, QT/QTC normal. EKG shows sinus rhythm with first-degree AV block and right bundle branch block with an anterior left fascicular block. EKG without acute ischemia. No significant changes when compared to EKG from December 28, 2020. <JORDYN Gómez Last Filed: 09/04/21 01:53> Critical Care Time Critical Care Time Critical Care Time: No <JORDYN Gómez Last Filed: 09/04/21 01:53> Discharge Plan Discharge Clinical Impression: Dementia, Hyperkalemia <JORDYN Gómez Last Filed: 09/04/21 01:53> Patient Disposition: Still a Patient <JORDYN Gómez Last Filed: 09/04/21 01:53> Prescriptions: No Action melatonin 3 mg Tablet 6 mg PO BEDTIME Qty: 30 0RF aspirin 81 mg Tablet,Delayed Release (Dr/Ec) 81 mg PO DAILY Qty: 30 0RF quetiapine 50 mg Tablet 50 mg PO TID Qty: 90 0RF simvastatin 40 mg Tablet 40 mg PO BEDTIME Qty: 30 0RF sertraline 100 mg tablet 1 tab PO DAILY 0RF potassium chloride 20 mEq tablet,ER particles/crystals 2 tab PO DAILY 0RF ammonium lactate 12 % cream 1 applic topical BEDTIME 0RF gabapentin 100 mg capsule 1 cap PO BID PRN (Reason: Agitation) 0RF cholecalciferol (vitamin D3) [Vitamin D3] 25 mcg (1,000 unit) Tablet 25 mcg PO DAILY 0RF diclofenac sodium 1 % gel 4 g topical TID 0RF metoprolol tartrate 100 mg tablet 100 mg PO BID 0RF tamsulosin 0.4 mg capsule 0.4 mg PO BEDTIME 90 Days Qty: 90 1RF <JORDYN Gómez Last Filed: 09/04/21 01:53>
[2021-09-03 19:13] LABS: Basophils Percent Auto 0.4 % (0-2); Eosinophils Absolute Auto 0.1 X10*3/uL (0.0-0.4); Eosinophils Percent Auto 2.1 % (0-4); Hemoglobin 12.2 g/dl (14.0-18.0); Imm Gran Abs Auto 0.01 X10*3/uL (0.00-0.03); Imm Gran Pct Auto 0.2 % (0.0-0.4); Lymphocytes Absolute Auto 1.3 X10*3/uL (1.2-4.9); Lymphocytes Percent Auto 28.5 % (20-40); MANUAL DIFF FLAG NO; Mean Corpuscular HGB Conc 32.1 g/dl (31.0-36.0); Mean Corpuscular Hemoglobin 31.3 pg (27.0-33.0); Mean Corpuscular Volume 97.4 fL (80.0-98.0); Mean Platelet Volume 8.9 fL (9.4-12.4); Monocytes Absolute Auto 0.4 X10*3/uL (0.1-1.2); Monocytes Percent Auto 9.1 % (2-11); Neutrophils Absolute Auto 2.8 x10*3/uL (2.0-8.3); Neutrophils Percent Auto 59.7 % (45-73); Platelet Count 151 X10*3/uL (160-400); Red Cell Distribution Width 14.4 % (11.0-16.0); White Blood Count 4.7 X10*3/uL (4.8-10.8)
[2021-09-03 19:26] LABS: Ethanol < 10 mg/dL
[2021-09-03 19:28] LABS: Appearance Urine HAZY; Color Urine YELLOW; Glucose Urine UA NEG (NEG); Leukocyte Esterase Urine TRACE (NEG); Nitrite Urine NEG (NEG); PH 6.5 (5.0-8.0); Specific Gravity - Urine 1.015 (1.005-1.025); UACC Culture Trigger YES; Urine Blood NEG (NEG); Urine Ketones NEG (NEG); Urine Protein NEG (NEG-TRACE)
[2021-09-03 19:29] LABS: Amphetamine Screen Urine Not Detected (Not Detect); Barbiturates, Urine Not Detected (Not Detect); Benzodiazepines Screen Urine Not Detected (Not Detect); COVID-19 Test Negative (Negative); Cannabinoid Screen Urine Not Detected (Not Detect); Cocaine Screen Urine Not Detected (Not Detect); Fentanyl, urine Not Detected (Not Detect); Opiate Screen Urine Not Detected (Not Detect); Phencyclidine Screen Urine Not Detected (Not Detect)
[2021-09-03 19:30] LABS: Alanine Aminotransferase 21 U/L (0-40); Alkaline Phosphatase 87 U/L (39-117); Anion Gap 13 (12-20); Aspartate Amino Transferase 26 U/L (5-37); Bilirubin Total 0.7 mg/dL (0.0-1.0); Blood Urea Nitrogen 20 mg/dL (9-16); Calcium 9.5 mg/dL (8.4-10.2); Carbon Dioxide 25 mmol/L (22-29); Chloride 108 mmol/L (96-108); Creatinine Clr Calc Pharmacy 55.7; Estimated Glomerular Filt Rate 60; Glucose Random 94 mg/dL (60-115); Magnesium 2.1 mg/dL (1.6-2.6); Potassium 5.8 mmol/L (3.3-5.1); Sodium 140 mmol/L (135-145); Total Protein 7.4 g/dL (6.5-8.0)
[2021-09-03 19:36] LABS: Bacteria Urine 1+ /LPF; RBC Urine 0-2 /HPF (0); Squamous Epithelial Cell Urine 2+ /LPF
[2021-09-03 19:37] LABS: Mucus Urine 1+ /LPF
--- NOTE | 2021-09-03 19:39 | ECG_ITS ---
Test Reason : AMS Blood Pressure : / mmHG Vent. Rate : 074 BPM Atrial Rate : 074 BPM P-R Int : 216 ms QRS Dur : 132 ms QT Int : 400 ms P-R-T Axes : 071 -77 007 degrees QTc Int : 444 ms Sinus rhythm with 1st degree A-V block Right bundle branch block Left anterior fascicular block Bifascicular block Septal infarct , age undetermined Abnormal ECG When compared with ECG of 28-DEC-2020 16:26, Septal infarct is now Present Referred By: Nick Quiroz Electronically Signed By:CAREY MORENO MD
[2021-09-03] MEDS: Sodium Zirconium Cyclosilicate 10 GM POWD.PACK PO (20:09)
[2021-09-03 20:12] LABS: Troponin-I High Sensitivity 20.3 ng/L (<3.5-35.0)
[2021-09-03 20:20] VITALS: BP 153/72; PULSE 68; RESP 16; TEMP 36.5; O2SAT 98
--- NOTE | 2021-09-03 20:53 | PHA.MEDREC ---
Pharmacy Consult ? Medication Reconciliation Pharmacy has completed the medication reconciliation.
--- NOTE | 2021-09-03 21:45 | PC.NURSE ---
Pt alert, confused at time. Medicated per Oct. Pt placed on bedside monitor. EKG and labs completed. Pt is restless at time but redirectable.
[2021-09-03] MEDS: diphenhydrAMINE HCL 25 MG TABLET 50 MG PO (21:53)
[2021-09-03] MEDS: LORazepam 1 MG TABLET PO (21:54)
[2021-09-03 22:14] VITALS: BP 137/73; PULSE 82; RESP 15; TEMP 36.7; O2SAT 97
[2021-09-03 23:21] LABS: Anion Gap 11 (12-20); Blood Urea Nitrogen 21 mg/dL (9-16); Calcium 9.1 mg/dL (8.4-10.2); Carbon Dioxide 26 mmol/L (22-29); Chloride 108 mmol/L (96-108); Creatinine Clr Calc Pharmacy 54.3; Estimated Glomerular Filt Rate 58; Glucose Random 138 mg/dL (60-115); Potassium 5.2 mmol/L (3.3-5.1); Sodium 140 mmol/L (135-145)
[2021-09-03 23:29] LABS: Troponin-I High Sensitivity 19.1 ng/L (<3.5-35.0)
[2021-09-03 23:37] VITALS: BP 146/76; PULSE 72; RESP 19; TEMP 37.1; O2SAT 98
[2021-09-04] VITALS: BP 141/70; PULSE 70; RESP 16; TEMP 36.8; O2SAT 99
[2021-09-04 04:10] VITALS: BP 134/70; PULSE 64; RESP 17; TEMP 37.1; O2SAT 99
--- NOTE | 2021-09-04 04:55 | PC.NURSE ---
pt assisted to at the bedside urinal, pt spilled urine on himself and floor. 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
[2021-09-04 06:16] VITALS: BP 139/66; PULSE 82; RESP 15; O2SAT 96
[2021-09-04 09:02] LABS: Appearance Urine HAZY; Color Urine YELLOW; Glucose Urine UA NEG (NEG); Leukocyte Esterase Urine TRACE (NEG); Nitrite Urine NEG (NEG); UACC Culture Trigger YES; Urine Blood NEG (NEG); Urine Ketones NEG (NEG); Urine Protein NEG (NEG-TRACE)
[2021-09-04] MEDS: QUEtiapine Fumarate 50 MG TABLET PO (09:05)
[2021-09-04] MEDS: Potassium Chloride ER 20 MEQ TAB.ER.PRT 40 MEQ PO (09:05)
[2021-09-04] MEDS: Sertraline HCL 100 MG TABLET PO (09:05)
[2021-09-04] MEDS: Aspirin Enteric Coated 81 MG TABLET.DR PO (09:05)
[2021-09-04] MEDS: Cholecalciferol (Vitamin D3) 25 MCG TABLET PO (09:05)
[2021-09-04] MEDS: Metoprolol Tartrate 100 MG TABLET PO (09:05)
[2021-09-04 09:14] LABS: Bacteria Urine 1+ /LPF; RBC Urine 0 /HPF (0); Squamous Epithelial Cell Urine TRACE /LPF; WBC Clumps Urine NOTED
[2021-09-04 09:32] VITALS: BP 123/69; PULSE 73; RESP 14; O2SAT 97
--- NOTE | 2021-09-04 09:58 | MHC.CARE ---
Pt is a 80 yearold male who presented to [facility] ED via EMS from [facility] on secondary to increased aggression. After medical workup Pt is found to have UTI. Pt's UTI is likely contributing to his increased aggression. Pt does not require further behavioral health intervention at this time. CARE Team spoke with JORDYN Sandoval who is agreement with plan to return Pt to his residence.
[2021-09-04 14:51] VITALS: BP 130/67; PULSE 81; RESP 16; O2SAT 96
--- NOTE | 2021-09-04 15:32 | PC.NURSE ---
call placed to [facility] for return. script to be sent with pt
--- NOTE | 2021-09-04 15:35 | MHC.CM.ED ---
Per Jocelyne WALSH, patient can return to [facility]. [facility] booked. Med nec with chart.
== END 2021-09-04 18:20 | disposition still patient (30) ==
PROVIDERS: Physician Assistant; Emergency Provider Emergency Medicine
DX: N39.0 Urinary tract infection, site not specified (principal); F03.90 Unspecified dementia, unspecified severity, without behavioral disturbance, psychotic disturbance, mood disturbance, and anxiety; E87.5 Hyperkalemia; Z20.822 Contact with and (suspected) exposure to COVID-19; I10 Essential (primary) hypertension; F17.200 Nicotine dependence, unspecified, uncomplicated; Z91.81 History of falling; Z79.82 Long term (current) use of aspirin; Z79.02 Long term (current) use of antithrombotics/antiplatelets; Z79.899 Other long term (current) drug therapy
CPT/HCPCS: 36415; 70450; 80048; 80053; 80307; 81001; 81003; 82077; 83735; 84484; 85025; 87086; 87635; 93005; 99285; Q0163

== ENCOUNTER 2021-11-27 05:33 | Outpatient (REF) | payer MEDICARE, SELFPAY ==
[2021-11-27 08:29] LABS: MANUAL DIFF FLAG NO
[2021-11-27 08:30] LABS: Basophils Percent Auto 0.6 % (0-2); Eosinophils Absolute Auto 0.2 X10*3/uL (0.0-0.4); Hematocrit 36.2 % (42.0-52.0); Hemoglobin 11.7 g/dl (14.0-18.0); Imm Gran Abs Auto 0.01 X10*3/uL (0.00-0.03); Imm Gran Pct Auto 0.2 % (0.0-0.4); Lymphocytes Absolute Auto 1.5 X10*3/uL (1.2-4.9); Lymphocytes Percent Auto 28.5 % (20-40); Mean Corpuscular HGB Conc 32.3 g/dl (31.0-36.0); Mean Corpuscular Hemoglobin 31.6 pg (27.0-33.0); Mean Corpuscular Volume 97.8 fL (80.0-98.0); Mean Platelet Volume 9.3 fL (9.4-12.4); Monocytes Absolute Auto 0.6 X10*3/uL (0.1-1.2); Monocytes Percent Auto 10.6 % (2-11); Neutrophils Absolute Auto 3.1 x10*3/uL (2.0-8.3); Neutrophils Percent Auto 57.1 % (45-73); Platelet Count 146 X10*3/uL (160-400); Red Cell Distribution Width 13.5 % (11.0-16.0); White Blood Count 5.4 X10*3/uL (4.8-10.8)
[2021-11-27 08:33] LABS: Appearance Urine CLEAR; Color Urine STRAW; Glucose Urine UA NEG (NEG); Leukocyte Esterase Urine 1+ (NEG); Nitrite Urine NEG (NEG); Urine Blood NEG (NEG); Urine Ketones NEG (NEG); Urine Protein NEG (NEG-TRACE)
[2021-11-27 08:33] LABS: Prothrombin Time 11.9 SEC (9.9-13.0)
[2021-11-27 08:36] LABS: Partial Thromboplastin Time 34.1 SEC (24.1-38.0)
[2021-11-27 08:45] LABS: Alanine Aminotransferase 15 U/L (0-40); Albumin Level 3.8 g/dL (3.5-5.0); Alkaline Phosphatase 84 U/L (39-117); Anion Gap 10 (12-20); Aspartate Amino Transferase 20 U/L (5-37); Bilirubin Total 0.9 mg/dL (0.0-1.0); Blood Urea Nitrogen 22 mg/dL (9-16); Calcium 9.1 mg/dL (8.4-10.2); Carbon Dioxide 27 mmol/L (22-29); Chloride 107 mmol/L (96-108); Estimated Glomerular Filt Rate 56; Glucose Fasting 84 mg/dL (60-99); Potassium 5.2 mmol/L (3.3-5.1); Sodium 139 mmol/L (135-145); Total Protein 6.7 g/dL (6.5-8.0); Triglycerides 60 mg/dL
[2021-11-27 08:48] LABS: Bacteria Urine 2+ /LPF; Squamous Epithelial Cell Urine TRACE /LPF
[2021-11-27 08:49] LABS: RBC Urine 0-2 /HPF (0)
[2021-11-27 09:04] LABS: Thyroid Stimulating Hormone 1.05 uIU/mL (0.32-4.0); Vitamin D 25-OH Total 30.8 ng/mL (>30)
[2021-11-27 09:25] LABS: Cholesterol 135 mg/dL; HDL Cholesterol 44 mg/dL; LDL Cholesterol Calculated 79 mg/dl
[2021-11-27 09:26] LABS: Folate 12.4 ng/mL (> or = 4.0); Vitamin B12 295 pg/mL (200-900)
[2021-11-30 16:17] LABS: TS Negative Control Passed; TS Panel A 0; TS Panel B 0; TS Positive Control Passed; TSpotTB Negative (SeeBelow)
== END 2021-11-27 05:34 | disposition home or self-care (01) ==
LOC: HO.HSH4W 05:33
PROVIDERS: Visit Provider Internal Medicine
DX: Z13.89 Encounter for screening for other disorder (principal)
CPT/HCPCS: 36415; 80053; 80061; 81001; 82306; 82607; 82746; 84443; 85025; 85610; 85730; 86481

== ENCOUNTER 2021-11-27 15:48 | Outpatient (REF) | payer MEDICARE, SELFPAY ==
--- NOTE | ~2021-11-27 | US_ITS ---
EXAMINATION: US RETROPERITONEAL COMPLETE (RENAL) CLINICAL INFORMATION: Microscopic hematuria. Weak stream. COMPARISON: CT abdomen and pelvis 10/03/2020. Renal ultrasound 01/10/2018 and 10/12/2017. TECHNIQUE: Real-time imaging of the kidneys and bladder. FINDINGS: RIGHT KIDNEY: 9.0 x 4.1 x 4.2 cm (SAG x AP x TRV). The kidney is normal in size, contour, and echogenicity. Renal cortical thickness is normal. No calculi or focal parenchymal lesions. No hydronephrosis. Atrophic lobular appearance. LEFT KIDNEY: 11.9 x 6.0 x 4.3 cm (SAG x AP x TRV). The kidney is normal in size, contour, and echogenicity. Renal cortical thickness is normal. There is an anechoic cyst midpole measuring 0.61 x 0.53 x 0.92 cm. No renal calculi or hydronephrosis. Atrophic lobular appearance. BLADDER: Well distended and normal. Bilateral ureteral jets are not demonstrated. Prevoid bladder volume is 154.4 mL. Postvoid bladder volume is 9.4 mL. US/US retroperitoneal comp IMPRESSION: Atrophic lobular appearance of both kidneys. Anechoic cyst midpole left kidney.
== END 2021-11-27 15:49 | disposition home or self-care (01) ==
LOC: HO.US 15:48
PROVIDERS: Visit Provider Urology
DX: Z11.1 Encounter for screening for respiratory tuberculosis (principal); N28.89 Other specified disorders of kidney and ureter; R31.9 Hematuria, unspecified; D68.9 Coagulation defect, unspecified; F03.90 Unspecified dementia, unspecified severity, without behavioral disturbance, psychotic disturbance, mood disturbance, and anxiety; D64.9 Anemia, unspecified
CPT/HCPCS: 36415; 76770; 80053; 80061; 81001; 82306; 82607; 82746; 84443; 85025; 85610; 85730; 86481

== ENCOUNTER → 2021-12-05 11:18 | Outpatient (BNVA) | payer MEDICARE, SELFPAY | PROVIDERS: PCP Internal Medicine; Visit Provider Urology | DX: R82.81 Pyuria (principal); R31.9 Hematuria, unspecified; R39.12 Poor urinary stream | CPT/HCPCS: Q3014 ==

== ENCOUNTER 2022-01-08 05:52 | Outpatient (REF) | payer MEDICARE, SELFPAY ==
[2022-01-08 07:56] LABS: Anion Gap 12 (12-20); Blood Urea Nitrogen 33 mg/dL (9-16); Carbon Dioxide 25 mmol/L (22-29); Chloride 106 mmol/L (96-108); Estimated Glomerular Filt Rate 59; Glucose Fasting 82 mg/dL (60-99); Potassium 4.6 mmol/L (3.3-5.1); Sodium 138 mmol/L (135-145)
== END 2022-01-08 05:53 | disposition home or self-care (01) ==
LOC: HO.HSH4W 05:52
PROVIDERS: Visit Provider Internal Medicine
DX: I10 Essential (primary) hypertension (principal)
CPT/HCPCS: 36415; 80051; 82565; 82947; 84520

== ENCOUNTER 2022-05-27 14:45 | Outpatient (REF) | payer MEDICARE, SELFPAY ==
[2022-05-27 15:16] LABS: Appearance Urine Clear; Color Urine Yellow; Glucose Urine UA Negative (Negative); Leukocyte Esterase Urine Small (1+) (Negative); Nitrite Urine Negative (Negative); PH 5.5 (5.0-9.0); Specific Gravity - Urine 1.015 (1.005-1.025); UMIC TRIGGER UACC YES; Urine Blood Negative (Negative); Urine Ketones Negative (Negative); Urine Protein Negative (Neg-Trace)
[2022-05-27 15:19] LABS: Bacteria Urine None Seen (None Seen); Hyaline Casts Urine 0-2 /LPF (0-2); RBC Urine 0-2 /HPF (0-2); Squamous Epithelial Cell Urine 0-2 /HPF (0-2); UACC Culture Trigger YES
== END 2022-05-27 14:46 | disposition home or self-care (01) ==
LOC: HO.HSH 14:45
PROVIDERS: Visit Provider Internal Medicine Interventional Cardiology
DX: R41.82 Altered mental status, unspecified (principal)
CPT/HCPCS: 81001; 87086

== ENCOUNTER 2022-06-26 21:22 | Outpatient (REF) | payer MEDICARE, SELFPAY ==
[2022-06-26 22:00] LABS: Appearance Urine Clear; Color Urine Yellow; Glucose Urine UA Negative (Negative); Leukocyte Esterase Urine Moderate (2+) (Negative); Nitrite Urine Negative (Negative); PH 5.5 (5.0-9.0); Specific Gravity - Urine 1.015 (1.005-1.025); UMIC TRIGGER UACC YES; Urine Blood Negative (Negative); Urine Ketones Negative (Negative); Urine Protein Negative (Neg-Trace)
[2022-06-26 22:02] LABS: Bacteria Urine Trace (None Seen); Hyaline Casts Urine 0-2 /LPF (0-2); RBC Urine 0-2 /HPF (0-2); UACC Culture Trigger YES; WBC Urine 21-50 /HPF (0-5)
== END 2022-06-26 21:23 | disposition home or self-care (01) ==
LOC: HO.HSH4W 21:22
PROVIDERS: Visit Provider Internal Medicine
DX: R41.0 Disorientation, unspecified (principal)
CPT/HCPCS: 81001; 81003; 87086

== ENCOUNTER 2022-07-20 05:36 | Outpatient (REF) | payer MEDICARE, SELFPAY ==
[2022-07-20 08:40] LABS: Appearance Urine Cloudy; Color Urine Orange; Glucose Urine UA Negative (Negative); Leukocyte Esterase Urine Small (1+) (Negative); Nitrite Urine Negative (Negative); PH 5.5 (5.0-9.0); Specific Gravity - Urine 1.015 (1.005-1.025); UMIC TRIGGER UA YES; Urine Blood Large (3+) (Negative); Urine Ketones Negative (Negative); Urine Protein 100 (2+) mg/dL (Neg-Trace)
[2022-07-20 08:42] LABS: Bacteria Urine None Seen (None Seen); Hyaline Casts Urine 0-2 /LPF (0-2); RBC Urine >20 /HPF (0-2); Squamous Epithelial Cell Urine 0-2 /HPF (0-2)
== END 2022-07-20 05:37 | disposition home or self-care (01) ==
LOC: HO.HSH4W 05:36
PROVIDERS: Visit Provider Nurse Practitioner
DX: R31.9 Hematuria, unspecified (principal)
CPT/HCPCS: 81001; 87086

== ENCOUNTER 2022-08-22 06:01 | Emergency (ER) | payer MEDICARE, SELFPAY ==
--- NOTE | ~2022-08-22 | XR_ITS ---
EXAMINATION: XR ANKLE, RIGHT CLINICAL INFORMATION: Right ankle pain after fall. COMPARISON: 12/29/2020 TECHNIQUE: AP, lateral, and mortise views of the right ankle. FINDINGS: No evidence of acute fracture or subluxation. Chronic mild narrowing of ankle joint space with marginal osteophytes. 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 Soft tissue swelling around the ankle is similar in appearance compared to 12/29/2020. A few old small foci of ossification project distal to the tip of the fibula. Peripheral vessels are calcified. 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 * Soft tissues are swollen around the ankle. * No acute abnormalities compared to 12/29/2020.
--- NOTE | ~2022-08-22 | XR_ITS ---
EXAMINATION: XR CHEST CLINICAL INFORMATION: Fall COMPARISON: 12/28/2020 TECHNIQUE: Frontal view of the chest was obtained. FINDINGS: Lungs are hypoinflated. No acute findings. No airspace disease, pleural effusion or pneumothorax. Cardiac silhouette is normal in size. The visualized bones are intact. Multilevel osteophyte formation of the partially visualized spine. XR/XR chest 1V IMPRESSION: No acute pulmonary disease.
--- NOTE | ~2022-08-22 | CT_ITS ---
EXAMINATION: CT BRAIN AND CT CERVICAL SPINE WITHOUT CONTRAST. CLINICAL INFORMATION: Status post fall. Neck pain. COMPARISON: 09/03/2021 Re: Exam TECHNIQUE: 5 mm thin axial and reformatted 2 mm thin sagittal and coronal images of brain were obtained without contrast. Subsequently axial 3 mm thin and reformatted 2 mm thin sagittal and coronal images of cervical spine were obtained. DLP [id number]. FINDINGS: Brain: There is no acute intra-axial, extra-axial bleed, masses, collection or midline shift. There is no acute infarction in evolution. There is no edema. There is diffuse periventricular hypodensity in both cerebral hemispheres without mass effect. Lateral ventricles are symmetrical in size but moderately enlarged. Bone windows reveal no calvarial abnormality. There is no scalp soft tissue abnormality. Bilateral paranasal sinuses and mastoid air cells are well-aerated. Cervical spine: There is normal cervical lordosis. The vertebral heights, alignment and disc heights are normal. There is no visible acute fracture, dislocation or subluxation seen. There is moderate left C2-C3, C3-C4 and C5-C6 facet joint arthropathy and hypertrophy. The prevertebral and paravertebral soft tissues are normal. The airways widely patent. CT/CT head/brain wo IV con IMPRESSION: No acute intracranial process seen. No acute fracture, dislocation or subluxation in cervical spine. There is degenerative facet joint arthropathy.
--- NOTE | ~2022-08-22 | CT_ITS ---
EXAMINATION: CT BRAIN AND CT CERVICAL SPINE WITHOUT CONTRAST. CLINICAL INFORMATION: Status post fall. Neck pain. COMPARISON: 09/03/2021 Re: Exam TECHNIQUE: 5 mm thin axial and reformatted 2 mm thin sagittal and coronal images of brain were obtained without contrast. Subsequently axial 3 mm thin and reformatted 2 mm thin sagittal and coronal images of cervical spine were obtained. DLP [id number]. FINDINGS: Brain: There is no acute intra-axial, extra-axial bleed, masses, collection or midline shift. There is no acute infarction in evolution. There is no edema. There is diffuse periventricular hypodensity in both cerebral hemispheres without mass effect. Lateral ventricles are symmetrical in size but moderately enlarged. Bone windows reveal no calvarial abnormality. There is no scalp soft tissue abnormality. Bilateral paranasal sinuses and mastoid air cells are well-aerated. Cervical spine: There is normal cervical lordosis. The vertebral heights, alignment and disc heights are normal. There is no visible acute fracture, dislocation or subluxation seen. There is moderate left C2-C3, C3-C4 and C5-C6 facet joint arthropathy and hypertrophy. The prevertebral and paravertebral soft tissues are normal. The airways widely patent. CT/CT cervical spine wo IV con IMPRESSION: No acute intracranial process seen. No acute fracture, dislocation or subluxation in cervical spine. There is degenerative facet joint arthropathy.
--- NOTE | ~2022-08-22 | XR_ITS ---
EXAMINATION: XR KNEE, RIGHT CLINICAL INFORMATION: Fall COMPARISON: None TECHNIQUE: Two views of the right knee. FINDINGS: Moderate knee joint effusion. Tricompartmental osteophyte formation. There appears to be moderate loss of patellofemoral joint space and severe loss of the lateral tibiofemoral joint space with subchondral sclerosis. A few intra-articular ossific bodies are noted. No acute fracture or malalignment. There are scattered peripheral vascular calcifications of the extremity. XR/XR knee RT 2V IMPRESSION: * No evidence of acute osseous injury at the right knee. * Tricompartmental osteoarthritis and joint effusion. The osteoarthritis is worst (severe) at the lateral tibiofemoral compartment.
[2022-08-22 06:07] VITALS: BP 130/68; PULSE 62; RESP 16; TEMP 36.4; O2SAT 99; BMI 31.5
--- NOTE | 2022-08-22 07:19 | ECG_ITS ---
Test Reason : FALL Blood Pressure : / mmHG Vent. Rate : 074 BPM Atrial Rate : 074 BPM P-R Int : 244 ms QRS Dur : 134 ms QT Int : 434 ms P-R-T Axes : 032 -75 008 degrees QTc Int : 481 ms Sinus rhythm with marked sinus arrhythmia with 1st degree A-V block Left axis deviation Right bundle branch block Abnormal ECG When compared with ECG of 03-SEP-2021 20:11, Criteria for Septal infarct are no longer Present Referred By: Nicole Espana Electronically Signed By:Benigno Esquivel
--- NOTE | 2022-08-22 07:31 | ED_ITS ---
HPI - Fall General Chief Complaint: Fall Stated Complaint: fall Time Seen by Provider: 08/22/22 06:58 Source: patient Mode of arrival: ambulatory Limitations: other History of Present Illness HPI Narrative: 81-year-old male status [facility] and due to dementia and poor historian patient is unable to give history of the fall. Patient is complaining of right knee pain. Related Data Home Medications Medication Instructions Recorded Confirmed cholecalciferol (vitamin D3) 25 25 mcg PO DAILY 09/03/21 08/22/22 mcg (1,000 unit) tablet (Vitamin D3) gabapentin 100 mg capsule 2 cap PO BID 09/03/21 08/22/22 sertraline 100 mg tablet 1 tab PO DAILY 09/03/21 08/22/22 acetaminophen 325 mg tablet 650 mg PO BID 06/11/22 08/22/22 bisacodyl 10 mg rectal suppository 10 mg WY DAILY PRN Constipation 06/11/22 08/22/22 magnesium hydroxide 400 mg/5 mL 30 ml PO BEDTIME PRN Constipation 06/11/22 08/22/22 oral suspension omeprazole 20 mg tablet,delayed 20 mg PO DAILY@0630 06/11/22 08/22/22 release acetaminophen 325 mg tablet 325 mg PO Q4H PRN Fever Or Pain 08/22/22 08/22/22 ascorbic acid (vitamin C) 1,000 mg 1,000 mg PO DAILY 08/22/22 08/22/22 tablet epinephrine 0.3 mg/0.3 mL 0.3 mg IM DAILY PRN Anaphylaxis 08/22/22 08/22/22 injection, auto-injector gabapentin 100 mg capsule 200 mg PO BID PRN Agitation 08/22/22 08/22/22 metoprolol tartrate 25 mg tablet 25 mg PO BID 08/22/22 08/22/22 Previous Rx's Medication Instructions Recorded aspirin 81 mg tablet,delayed 81 mg PO DAILY #30 tabs 01/14/21 release melatonin 3 mg tablet 6 mg PO BEDTIME #30 tabs 01/14/21 quetiapine 50 mg tablet 50 mg PO TID #90 tabs 01/14/21 simvastatin 40 mg tablet 40 mg PO BEDTIME #30 tabs 01/14/21 tamsulosin 0.4 mg capsule 0.4 mg PO BEDTIME 90 days #90 caps 10/29/21 methenamine hippurate 1 gram tablet 1 g PO DAILY 90 days #90 tabs 12/05/21 Allergies Allergy/AdvReac Type Severity Reaction Status Date / Time bee pollen [BEE STINGS] Allergy Unknown UNKNOWN Verified 06/11/22 13:15 lisinopril [LISINOPRIL] Allergy Unknown FACIAL Verified 06/11/22 13:15 EDEMA Review of Systems Review of Systems: All other systems are reviewed and are negative Constitutional: Reports as per HPI and Reports no additional constitutional co mplaints Eyes: Reports as per HPI and Reports no additional eye complaints Reports system reviewed and no additional complaints, except as documented Cardiovascular: Reports as per HPI and Reports no additional cardiovascular complaints Respiratory: Reports as per HPI and Reports no additional respiratory complaints Gastrointestinal: Reports as per HPI and Reports no additional gastrointestinal complaints Genitourinary: Reports no additional female genitourinary complaints Musculoskeletal: Reports no additional musculoskeletal complaints Skin/Breast: Reports system reviewed and no additional complaints, except as docu Psychiatric: Reports no additional psychiatric complaints Endocrine: Reports no additional endocrine complaints Hematologic/Lymphatic: Reports no additional hematologic/lymphatic complaints Allergic/Immunologic: Reports no additional allergic/immunologic complaints Reports system reviewed and no additional complaints, except as documented and Reports Abnormal speech present COUNTS INCLUDE 234 BEDS AT THE [facility] Past Medical History Medical History Anxiety Dementia Hematuria Heterozygous factor V Leiden mutation History of GI bleed History of melanoma Hx of deep venous thrombosis Hypertension Vascular dementia Family History Family History Father Lung cancer Maternal Grandmother Breast cancer Mother Breast cancer Colon cancer Social History Social History Household Members: None Housing: Assisted Living Facility Are you a primary point of care specialist to a significant other at home: No Do you presently have visiting nurse or other home services: No Alcohol intake: unknown Patient Tobacco Use Status: Former Tobacco user Quit Date: over 40 years ago Tobacco use type: Cigarette Years Smoked: 15 e-Cigarette/Vaping Use: Never Used Second Hand Smoke Exposure: No Advance Directives: Yes Advance Directives on File: Yes Advance Directives Date on File: 06/11/22 service: Yes Current occupational status: retired Sexual orientation: Straight/Heterosexual Physical Exam Vital Signs: Vital Signs: Last Vital Signs Temp 97.5 F 08/22/22 06:07 Pulse 62 08/22/22 06:07 Resp 16 08/22/22 06:07 BP 130/68 08/22/22 06:07 Pulse Ox 99 08/22/22 06:07 O2 Del Method 08/22/22 06:07 BMI result Body Mass Index 31.5 Vital signs have been reviewed as appeared to be correct. Blood pressure normal . Heart rate normal. Respiration rate normal. Temperature normal. Oxygen saturation normal. Appearance: Alert. Oriented X3. No acute distress. Head: Normal external exam. Normocephalic. Atraumatic. No Connelly signs noted. No raccoon eyes noted Eyes: PERRLA. EOMI. Conjunctiva and sclera normal. Eyelids normal. ENT: TM's Normal. Pharynx normal. Uvula midline. Moist mucous membranes. No trismus noted. No drooling noted. No muffled voice noted. Neck: Normal inspection. Neck supple. FROM. No adenopathy. Thyroid Normal. No meningeal signs. No neck mass noted. CVS: Normal heart rate and rhythm. Heart sound normal. No murmurs noted. Pulses normal throughout. Respiratory: No respiratory distress. Painless inspiration. Breath sounds normal. No wheezes/rales/rhonchi noted. Chest nontender. No accessory muscle usage noted or decreased air movement noted. Abdomen: Soft and nontender. Bowel sounds normal in all 4 quadrants. No distention noted. No organomegaly noted. No visible injury noted. Back: No CVA tenderness. Full range of motion noted. Skin: Skin warm and dry. Normal skin color. Normal skin turgor. No rashes/lesions/lacerations noted. Extremities: No lower extremity edema. Extremities exhibit normal range of motion. Extremities nontender. Neuro: Oriented X 3. Cranial nerve exam: II-XII are grossly intact No motor deficit. No sensory deficit. Reflexes normal. Course Course Course Narrative: 81-year-old male status [facility] no acute fracture, no head injury, no cervical spine injury patient is able to ambulate in the emergency department in steady gait will discharge to follow-up with PCP. Medical Decision Making Differential Diagnosis Differential Diagnoses: The differential diagnosis associated with the presenta tion includes (Mechanical fall, syncope, right ankle fracture, right knee fracture, head injury, cervical spine injury.) Lab Data MDM Lab Attestation statement: I reviewed the patient's lab results. 08/22/22 07:45 08/22/22 07:45 Labs: Lab Results 08/22/22 08/22/22 08/22/22 Range/Units 07:45 07:45 07:45 WBC 5.4 (4.8-10.8) X10*3/uL RBC 4.21 L (4.60-5.80) X10*6/uL Hgb 13.1 L (14.0-18.0) g/dl Hct 40.1 L (42.0-52.0) % MCV 95.2 (80.0-98.0) fL MCH 31.1 (27.0-33.0) pg MCHC 32.7 (31.0-36.0) g/dl RDW 13.2 (11.0-16.0) % Plt Count 125 L (160-400) X10*3/uL MPV 8.8 L (9.4-12.4) fL Immature Gran % (Auto) 0.4 (0.0-0.4) % Neut % (Auto) 54.3 (45-73) % Lymph % (Auto) 32.7 (20-40) % Kern % (Auto) 9.2 (2-11) % Eos % (Auto) 2.8 (0-4) % Baso % (Auto) 0.6 (0-2) % Lymph # (Auto) 1.8 (1.2-4.9) X10*3/uL Kern # (Auto) 0.5 (0.1-1.2) X10*3/uL Eos # (Auto) 0.2 (0.0-0.4) X10*3/uL Baso # (Auto) 0.0 (0.0-0.2) X10*3/uL Abs Immat Gran (auto) 0.02 (0.00-0.03) X10*3/uL Absolute Neuts (auto) 2.9 (2.0-8.3) x10*3/uL Absolute Nucleated RBC 0.000 (0.0-0.012) X10*3/uL Nucleated RBC % (auto) 0.0 (0.0-0.2) /100WBC Sodium 140 (135-145) mmol/L Potassium 4.7 (3.3-5.1) mmol/L Chloride 107 (96-108) mmol/L Carbon Dioxide 26 (22-29) mmol/L Anion Gap 12 (12-20) BUN 29 H (9-16) mg/dL Creatinine 1.31 (0.5-1.4) mg/dL Estim Creat Clear Calc 59.6 Estimated GFR 53 Random Glucose 78 (60-115) mg/dL Calcium 8.8 (8.4-10.2) mg/dL Total Bilirubin 0.8 (0.0-1.0) mg/dL Direct Bilirubin 0.3 (0.0-0.5) mg/dL AST 24 (5-37) U/L ALT 21 (0-40) U/L Alkaline Phosphatase 86 (39-117) U/L Troponin I High Sens 25.8 (<3.5-35.0) ng/L Total Protein 6.8 (6.5-8.0) g/dL Albumin 3.8 (3.5-5.0) g/dL Lipase 35 (8-78) U/L Urine Color Urine Appearance Urine pH (5.0-9.0) Ur Specific Walnut (1.005-1.025) Urine Protein (Neg-Trace) mg/dL Urine Glucose (UA) (Negative) mg/dL Urine Ketones (Negative) mg/dL Urine Blood (Negative) Urine Nitrite (Negative) Ur Leukocyte Esterase (Negative) Urine RBC (0-2) /HPF Urine WBC (0-5) /HPF Ur Squamous Epith Cells (0-2) /HPF Urine Bacteria (None Seen) Hyaline Casts (0-2) /LPF 08/22/22 Range/Units 09:11 WBC (4.8-10.8) X10*3/uL RBC (4.60-5.80) X10*6/uL Hgb (14.0-18.0) g/dl Hct (42.0-52.0) % MCV (80.0-98.0) fL MCH (27.0-33.0) pg MCHC (31.0-36.0) g/dl RDW (11.0-16.0) % Plt Count (160-400) X10*3/uL MPV (9.4-12.4) fL Immature Gran % (Auto) (0.0-0.4) % Neut % (Auto) (45-73) % Lymph % (Auto) (20-40) % Kern % (Auto) (2-11) % Eos % (Auto) (0-4) % Baso % (Auto) (0-2) % Lymph # (Auto) (1.2-4.9) X10*3/uL Kern # (Auto) (0.1-1.2) X10*3/uL Eos # (Auto) (0.0-0.4) X10*3/uL Baso # (Auto) (0.0-0.2) X10*3/uL Abs Immat Gran (auto) (0.00-0.03) X10*3/uL Absolute Neuts (auto) (2.0-8.3) x10*3/uL Absolute Nucleated RBC (0.0-0.012) X10*3/uL Nucleated RBC % (auto) (0.0-0.2) /100WBC Sodium (135-145) mmol/L Potassium (3.3-5.1) mmol/L Chloride (96-108) mmol/L Carbon Dioxide (22-29) mmol/L Anion Gap (12-20) BUN (9-16) mg/dL Creatinine (0.5-1.4) mg/dL Estim Creat Clear Calc Estimated GFR Random Glucose (60-115) mg/dL Calcium (8.4-10.2) mg/dL Total Bilirubin (0.0-1.0) mg/dL Direct Bilirubin (0.0-0.5) mg/dL AST (5-37) U/L ALT (0-40) U/L Alkaline Phosphatase (39-117) U/L Troponin I High Sens (<3.5-35.0) ng/L Total Protein (6.5-8.0) g/dL Albumin (3.5-5.0) g/dL Lipase (8-78) U/L Urine Color Yellow Urine Appearance Clear Urine pH 5.5 (5.0-9.0) Ur Specific Walnut 1.010 (1.005-1.025) Urine Protein Negative (Neg-Trace) mg/dL Urine Glucose (UA) Negative (Negative) mg/dL Urine Ketones Negative (Negative) mg/dL Urine Blood Negative (Negative) Urine Nitrite Negative (Negative) Ur Leukocyte Esterase Small (1+) H (Negative) Urine RBC 0-2 (0-2) /HPF Urine WBC 6-10 H (0-5) /HPF Ur Squamous Epith Cells 0-2 (0-2) /HPF Urine Bacteria None Seen (None Seen) Hyaline Casts 0-2 (0-2) /LPF Independent Interpretation I performed an independent interpretation of an: EKG (Normal sinus rhythm, first-degree AV block otherwise unremarkable intervals, left axis deviation, RBBB.), Plain X-Ray (Chest/right knee/right ankle: No acute intrathoracic pathology, no right knee or ankle fracture.) and CT Scan (Head/cervical spine: No acute intracranial pathology, no acute cervical spine fracture.) Radiology Impression Discussion of test interpretation with radiology: I have reviewed the radiologist's reading. Discharge Plan Discharge Clinical Impression: Accident due to mechanical fall without injury, Contusion Patient Disposition: Xfer [facility] Instructions: Fall Prevention (ED) Prescriptions: No Action tamsulosin 0.4 mg capsule 0.4 mg PO BEDTIME 90 Days Qty: 90 1RF acetaminophen 325 mg Tablet 650 mg PO BID magnesium hydroxide 400 mg/5 mL Suspension 30 ml PO BEDTIME PRN (Reason: Constipation) bisacodyl 10 mg Suppository 10 mg WY DAILY PRN (Reason: Constipation) omeprazole 20 mg Tablet,Delayed Release (Dr/Ec) 20 mg PO DAILY@0630 melatonin 3 mg Tablet 6 mg PO BEDTIME Qty: 30 0RF aspirin 81 mg Tablet,Delayed Release (Dr/Ec) 81 mg PO DAILY Qty: 30 0RF quetiapine 50 mg Tablet 50 mg PO TID Qty: 90 0RF simvastatin 40 mg Tablet 40 mg PO BEDTIME Qty: 30 0RF sertraline 100 mg tablet 1 tab PO DAILY gabapentin 100 mg capsule 2 cap PO BID cholecalciferol (vitamin D3) [Vitamin D3] 25 mcg (1,000 unit) Tablet 25 mcg PO DAILY acetaminophen 325 mg Tablet 325 mg PO Q4H PRN (Reason: Fever Or Pain) gabapentin 100 mg Capsule 200 mg PO BID PRN (Reason: Agitation) epinephrine 0.3 mg/0.3 mL Auto-Injector 0.3 mg IM DAILY PRN (Reason: Anaphylaxis) metoprolol tartrate 25 mg Tablet 25 mg PO BID ascorbic acid (vitamin C) 1,000 mg tablet 1,000 mg PO DAILY methenamine hippurate 1 gram tablet 1 g PO DAILY 90 Days Qty: 90 1RF Referrals: Darwin Napier MD [Primary Care Provider] -
[2022-08-22 07:49] LABS: MANUAL DIFF FLAG NO
[2022-08-22 07:51] LABS: Basophils Percent Auto 0.6 % (0-2); Eosinophils Absolute Auto 0.2 X10*3/uL (0.0-0.4); Eosinophils Percent Auto 2.8 % (0-4); Hematocrit 40.1 % (42.0-52.0); Hemoglobin 13.1 g/dl (14.0-18.0); Imm Gran Abs Auto 0.02 X10*3/uL (0.00-0.03); Imm Gran Pct Auto 0.4 % (0.0-0.4); Lymphocytes Absolute Auto 1.8 X10*3/uL (1.2-4.9); Lymphocytes Percent Auto 32.7 % (20-40); Mean Corpuscular HGB Conc 32.7 g/dl (31.0-36.0); Mean Corpuscular Hemoglobin 31.1 pg (27.0-33.0); Mean Corpuscular Volume 95.2 fL (80.0-98.0); Mean Platelet Volume 8.8 fL (9.4-12.4); Monocytes Absolute Auto 0.5 X10*3/uL (0.1-1.2); Monocytes Percent Auto 9.2 % (2-11); Neutrophils Absolute Auto 2.9 x10*3/uL (2.0-8.3); Neutrophils Percent Auto 54.3 % (45-73); Platelet Count 125 X10*3/uL (160-400); Red Blood Count 4.21 X10*6/uL (4.60-5.80); Red Cell Distribution Width 13.2 % (11.0-16.0); White Blood Count 5.4 X10*3/uL (4.8-10.8)
--- NOTE | 2022-08-22 07:54 | PHA.MEDREC ---
Pharmacy Consult ? Medication Reconciliation Pharmacy has completed the medication reconciliation. Med list from [facility] faxed to pharmacy.
[2022-08-22 08:18] LABS: Alanine Aminotransferase 21 U/L (0-40); Albumin Level 3.8 g/dL (3.5-5.0); Alkaline Phosphatase 86 U/L (39-117); Anion Gap 12 (12-20); Aspartate Amino Transferase 24 U/L (5-37); Bilirubin Direct 0.3 mg/dL (0.0-0.5); Bilirubin Total 0.8 mg/dL (0.0-1.0); Blood Urea Nitrogen 29 mg/dL (9-16); Calcium 8.8 mg/dL (8.4-10.2); Carbon Dioxide 26 mmol/L (22-29); Chloride 107 mmol/L (96-108); Creatinine Clr Calc Pharmacy 59.6; Estimated Glomerular Filt Rate 53; Glucose Random 78 mg/dL (60-115); Lipase 35 U/L (8-78); Potassium 4.7 mmol/L (3.3-5.1); Sodium 140 mmol/L (135-145); Total Protein 6.8 g/dL (6.5-8.0)
[2022-08-22 08:31] LABS: Troponin-I High Sensitivity 25.8 ng/L (<3.5-35.0)
--- NOTE | 2022-08-22 09:00 | PC.NURSE ---
PT ALERT, ORIENTED TO SELF. PT EVALUATED BY ED PROVIDER. SCANS AND LABS NEGATIVE FOR PRESENTING COMPLAINTS. PT MEDICALLY CLEARED FOR DISCHARGE. TRANSPORTATION BEING ARRANGED.
[2022-08-22 09:17] LABS: Appearance Urine Clear; Color Urine Yellow; Glucose Urine UA Negative (Negative); Leukocyte Esterase Urine Small (1+) (Negative); Nitrite Urine Negative (Negative); PH 5.5 (5.0-9.0); UMIC TRIGGER UACC YES; Urine Blood Negative (Negative); Urine Ketones Negative (Negative); Urine Protein Negative (Neg-Trace)
[2022-08-22 09:22] LABS: Bacteria Urine None Seen (None Seen); Hyaline Casts Urine 0-2 /LPF (0-2); RBC Urine 0-2 /HPF (0-2); Squamous Epithelial Cell Urine 0-2 /HPF (0-2); UACC Culture Trigger YES
[2022-08-22 09:44] VITALS: BP 118/79; PULSE 70; RESP 18; TEMP 36.7; O2SAT 98
== END 2022-08-22 11:23 ==
PROVIDERS: Emergency Provider Emergency Medicine; PCP Internal Medicine
DX: T14.8XXA Other injury of unspecified body region, initial encounter (principal); W19.XXXA Unspecified fall, initial encounter; M25.561 Pain in right knee; I10 Essential (primary) hypertension; Z86.718 Personal history of other venous thrombosis and embolism; Z87.891 Personal history of nicotine dependence; Y93.9 Activity, unspecified; Y92.129 Unspecified place in nursing home as the place of occurrence of the external cause; Y99.9 Unspecified external cause status
CPT/HCPCS: 36415; 70450; 71045; 72125; 73560; 73610; 80048; 80076; 81001; 83690; 84484; 85025; 87086; 93005; 99284

== ENCOUNTER 2022-08-28 10:24 | Outpatient (REF) | payer MEDICARE, SELFPAY ==
[2022-08-28 12:10] LABS: Anion Gap 10 (12-20); Carbon Dioxide 25 mmol/L (22-29); Chloride 106 mmol/L (96-108); Estimated Glomerular Filt Rate 60; Potassium 4.4 mmol/L (3.3-5.1); Sodium 137 mmol/L (135-145)
== END 2022-08-28 10:25 | disposition home or self-care (01) ==
LOC: HO.HSH1N 10:24
PROVIDERS: Absent Provider Internal Medicine; Visit Provider Internal Medicine Interventional Cardiology
DX: U07.1 COVID-19 (principal)
CPT/HCPCS: 36415; 80051; 82565

== ENCOUNTER 2022-11-05 05:49 | Outpatient (REF) | payer MEDICARE, SELFPAY ==
[2022-11-05 08:32] LABS: MANUAL DIFF FLAG NO
[2022-11-05 08:34] LABS: Basophils Percent Auto 0.5 % (0-2); Eosinophils Absolute Auto 0.2 X10*3/uL (0.0-0.4); Eosinophils Percent Auto 2.8 % (0-4); Hematocrit 41.2 % (42.0-52.0); Hemoglobin 13.3 g/dl (14.0-18.0); Imm Gran Abs Auto 0.01 X10*3/uL (0.00-0.03); Imm Gran Pct Auto 0.2 % (0.0-0.4); Lymphocytes Absolute Auto 1.8 X10*3/uL (1.2-4.9); Lymphocytes Percent Auto 29.6 % (20-40); Mean Corpuscular HGB Conc 32.3 g/dl (31.0-36.0); Mean Corpuscular Hemoglobin 31.3 pg (27.0-33.0); Mean Corpuscular Volume 96.9 fL (80.0-98.0); Mean Platelet Volume 8.9 fL (9.4-12.4); Monocytes Absolute Auto 0.5 X10*3/uL (0.1-1.2); Monocytes Percent Auto 8.9 % (2-11); Neutrophils Absolute Auto 3.5 x10*3/uL (2.0-8.3); Platelet Count 162 X10*3/uL (160-400); Red Blood Count 4.25 X10*6/uL (4.60-5.80); Red Cell Distribution Width 13.3 % (11.0-16.0)
[2022-11-05 09:03] LABS: B Type Natriuretic Peptide 91 pg/mL (<100)
== END 2022-11-05 05:50 | disposition home or self-care (01) ==
LOC: HO.HSH2N 05:49
PROVIDERS: Visit Provider Internal Medicine Interventional Cardiology
DX: R06.00 Dyspnea, unspecified (principal)
CPT/HCPCS: 36415; 83880; 85025

== ENCOUNTER 2022-11-30 06:23 | Outpatient (REF) | payer MEDICARE, SELFPAY ==
[2022-11-30 06:26] LABS: MANUAL DIFF FLAG NO
[2022-11-30 06:49] LABS: Basophils Percent Auto 0.5 % (0-2); Eosinophils Absolute Auto 0.2 X10*3/uL (0.0-0.4); Eosinophils Percent Auto 3.1 % (0-4); Hematocrit 37.6 % (42.0-52.0); Hemoglobin 12.2 g/dl (14.0-18.0); Imm Gran Abs Auto 0.01 X10*3/uL (0.00-0.03); Imm Gran Pct Auto 0.2 % (0.0-0.4); Lymphocytes Absolute Auto 1.8 X10*3/uL (1.2-4.9); Lymphocytes Percent Auto 29.9 % (20-40); Mean Corpuscular HGB Conc 32.4 g/dl (31.0-36.0); Mean Corpuscular Volume 95.7 fL (80.0-98.0); Mean Platelet Volume 8.8 fL (9.4-12.4); Monocytes Absolute Auto 0.6 X10*3/uL (0.1-1.2); Monocytes Percent Auto 10.4 % (2-11); Neutrophils Absolute Auto 3.4 x10*3/uL (2.0-8.3); Neutrophils Percent Auto 55.9 % (45-73); Platelet Count 147 X10*3/uL (160-400); Red Blood Count 3.93 X10*6/uL (4.60-5.80); Red Cell Distribution Width 13.2 % (11.0-16.0); White Blood Count 6.2 X10*3/uL (4.8-10.8)
[2022-11-30 07:17] LABS: Alanine Aminotransferase 18 U/L (0-40); Albumin Level 3.5 g/dL (3.5-5.0); Alkaline Phosphatase 86 U/L (39-117); Anion Gap 13 (12-20); Aspartate Amino Transferase 21 U/L (5-37); Bilirubin Total 0.6 mg/dL (0.0-1.0); Blood Urea Nitrogen 27 mg/dL (9-16); Calcium 8.3 mg/dL (8.4-10.2); Carbon Dioxide 22 mmol/L (22-29); Chloride 108 mmol/L (96-108); Cholesterol 145 mg/dL; Estimated Glomerular Filt Rate 56; Glucose Fasting 80 mg/dL (60-99); HDL Cholesterol 37 mg/dL; LDL Cholesterol Calculated 100 mg/dl; Sodium 138 mmol/L (135-145); Total Protein 6.4 g/dL (6.5-8.0); Triglycerides 43 mg/dL
[2022-11-30 07:31] LABS: Thyroid Stimulating Hormone 1.46 uIU/mL (0.32-4.0)
== END 2022-11-30 06:24 | disposition home or self-care (01) ==
LOC: HO.HSH2N 06:23
PROVIDERS: Visit Provider Internal Medicine Interventional Cardiology
DX: E78.5 Hyperlipidemia, unspecified (principal); I10 Essential (primary) hypertension; F03.90 Unspecified dementia, unspecified severity, without behavioral disturbance, psychotic disturbance, mood disturbance, and anxiety
CPT/HCPCS: 36415; 80053; 80061; 84443; 85025

== ENCOUNTER 2023-01-14 20:20 | Outpatient (REF) | payer MEDICARE, SELFPAY | END 2023-01-14 20:21 | disposition home or self-care (01) | LOC: HO.HSH2N 20:20 | PROVIDERS: Visit Provider Internal Medicine Interventional Cardiology | DX: Z13.89 Encounter for screening for other disorder (principal) ==

== ENCOUNTER 2023-01-14 21:35 | Outpatient (REF) | payer MEDICARE, SELFPAY ==
[2023-01-15 04:08] LABS: Appearance Urine Turbid; Color Urine RED; Glucose Urine UA Negative (Negative); Leukocyte Esterase Urine Trace (Negative); Nitrite Urine Negative (Negative); UMIC TRIGGER UA YES; Urine Blood Large (3+) (Negative); Urine Ketones Negative (Negative); Urine Protein 100 (2+) mg/dL (Neg-Trace)
[2023-01-15 04:20] LABS: Bacteria Urine None Seen (None Seen); Hyaline Casts Urine 0-2 /LPF (0-2); RBC Urine >20 /HPF (0-2); WBC Urine 21-50 /HPF (0-5)
== END 2023-01-14 21:36 | disposition home or self-care (01) ==
LOC: HO.HSH2N 21:35
PROVIDERS: Visit Provider Internal Medicine Interventional Cardiology
DX: R31.9 Hematuria, unspecified (principal)
CPT/HCPCS: 81001; 81003

== ENCOUNTER 2023-01-18 08:49 | Outpatient (REF) | payer MEDICARE, SELFPAY | END 2023-01-18 08:50 | disposition home or self-care (01) | LOC: HO.HSH2N 08:49 | PROVIDERS: Visit Provider Internal Medicine Interventional Cardiology | DX: R31.9 Hematuria, unspecified (principal); R82.81 Pyuria | CPT/HCPCS: 87086 ==

== ENCOUNTER 2023-02-23 05:36 | Outpatient (REF) | payer MEDICARE, SELFPAY ==
[2023-02-23 06:24] LABS: MANUAL DIFF FLAG NO
[2023-02-23 06:38] LABS: Basophils Percent Auto 0.5 % (0-2); Eosinophils Absolute Auto 0.2 X10*3/uL (0.0-0.4); Eosinophils Percent Auto 3.5 % (0-4); Hematocrit 39.2 % (42.0-52.0); Hemoglobin 12.8 g/dl (14.0-18.0); Imm Gran Abs Auto 0.02 X10*3/uL (0.00-0.03); Imm Gran Pct Auto 0.3 % (0.0-0.4); Lymphocytes Absolute Auto 1.7 X10*3/uL (1.2-4.9); Lymphocytes Percent Auto 29.7 % (20-40); Mean Corpuscular HGB Conc 32.7 g/dl (31.0-36.0); Mean Corpuscular Hemoglobin 30.8 pg (27.0-33.0); Mean Corpuscular Volume 94.5 fL (80.0-98.0); Mean Platelet Volume 8.3 fL (9.4-12.4); Monocytes Absolute Auto 0.4 X10*3/uL (0.1-1.2); Monocytes Percent Auto 7.6 % (2-11); Neutrophils Absolute Auto 3.4 x10*3/uL (2.0-8.3); Neutrophils Percent Auto 58.4 % (45-73); Platelet Count 146 X10*3/uL (160-400); Red Blood Count 4.15 X10*6/uL (4.60-5.80); White Blood Count 5.8 X10*3/uL (4.8-10.8)
[2023-02-23 06:44] LABS: Alanine Aminotransferase 17 U/L (0-40); Albumin Level 3.5 g/dL (3.5-5.0); Alkaline Phosphatase 92 U/L (39-117); Anion Gap 13 (12-20); Aspartate Amino Transferase 21 U/L (5-37); Bilirubin Total 0.6 mg/dL (0.0-1.0); Blood Urea Nitrogen 29 mg/dL (9-16); Calcium 8.8 mg/dL (8.4-10.2); Carbon Dioxide 22 mmol/L (22-29); Chloride 106 mmol/L (96-108); Estimated Glomerular Filt Rate 58; Glucose Random 123 mg/dL (60-115); Potassium 4.4 mmol/L (3.3-5.1); Sodium 137 mmol/L (135-145); Total Protein 7.1 g/dL (6.5-8.0)
== END 2023-02-23 05:37 | disposition home or self-care (01) ==
LOC: HO.HSH2N 05:36
PROVIDERS: Visit Provider Internal Medicine Interventional Cardiology
DX: I10 Essential (primary) hypertension (principal); F03.90 Unspecified dementia, unspecified severity, without behavioral disturbance, psychotic disturbance, mood disturbance, and anxiety; N18.30 Chronic kidney disease, stage 3 unspecified
CPT/HCPCS: 36415; 80053; 85025

== ENCOUNTER 2023-02-26 15:00 | Outpatient (REF) | payer MEDICARE, SELFPAY ==
[2023-02-26 15:31] LABS: Appearance Urine Clear; Color Urine Yellow; Glucose Urine UA Negative (Negative); Leukocyte Esterase Urine Moderate (2+) (Negative); Nitrite Urine Negative (Negative); PH 5.5 (5.0-9.0); Specific Gravity - Urine 1.015 (1.005-1.025); UMIC TRIGGER UA YES; Urine Blood Negative (Negative); Urine Ketones Negative (Negative); Urine Protein Trace mg/dL (Neg-Trace)
[2023-02-26 17:15] LABS: Bacteria Urine 1+ (None Seen); Hyaline Casts Urine 0-2 /LPF (0-2); RBC Urine >20 /HPF (0-2); WBC Urine >50 /HPF (0-5)
== END 2023-02-26 15:01 | disposition home or self-care (01) ==
LOC: HO.HSH2N 15:00
PROVIDERS: Visit Provider Internal Medicine Interventional Cardiology
DX: R41.82 Altered mental status, unspecified (principal); I12.9 Hypertensive chronic kidney disease with stage 1 through stage 4 chronic kidney disease, or unspecified chronic kidney disease; N18.30 Chronic kidney disease, stage 3 unspecified
CPT/HCPCS: 81001

== ENCOUNTER 2023-03-26 08:41 | Emergency (ER) | payer MEDICARE, SELFPAY ==
--- NOTE | ~2023-03-26 | CT_ITS ---
EXAMINATION: CT HEAD WITHOUT CONTRAST CLINICAL INFORMATION: Change in mental status. Rule out stroke and hemorrhage. COMPARISON: CT head 08/22/2022. TECHNIQUE: Contiguous axial imaging was performed from the skull base to vertex without intravenous administration of contrast. This CT examination was performed using dose optimization techniques as appropriate, variously including the following: *Automated exposure control *Adjustment of mA and/or kV according to patient size (this includes techniques or standardized protocols for targeted exams where dose is matched to indication/reason for exam; i.e. extremities or head) *Use of iterative reconstruction technique DLP: 1994 mGy-cm FINDINGS: There are numerous foci of hypoattenuation primarily distributed within the periventricular white matter and there are a few age indeterminate cortical infarcts within both cerebral hemispheres. No acute intracranial hemorrhage or abnormal extra-axial collection. No intracranial mass effect or midline shift. Lateral and third ventricles are normal. No hydrocephalus. The calvarium and skull base are intact. Mastoid air cells and middle ear cavities are well aerated. Mild to moderate paranasal sinus disease primarily affecting the ethmoid air cells and right frontal sinus. CT/CT head/brain wo IV con IMPRESSION: There are numerous chronic small vessel ischemic changes within the periventricular white matter and a few possible age indeterminate cortical infarct within both cerebral hemispheres. If there is a high level of clinical concern for acute infarct then a dedicated brain MRI can be obtained for better anatomic characterization. No acute hemorrhage.
--- NOTE | ~2023-03-26 | CT_ITS ---
EXAMINATION: CT ABDOMEN AND PELVIS WITHOUT CONTRAST CLINICAL INFORMATION: Abdominal pain, bulging, rule out hernia. COMPARISON: CT scan of the abdomen and pelvis dated 10/03/2020. TECHNIQUE: Multidetector volumetric imaging was performed from the superior aspect of the liver through the pubic symphysis. Sagittal and coronal reformatted images were obtained on the technologist's workstation. Lack of intravenous and oral contrast limits visceral evaluation. Motion artifact also limits evaluation. This CT examination was performed using dose optimization techniques as appropriate, variously including the following: *Automated exposure control *Adjustment of mA and/or kV according to patient size (this includes techniques or standardized protocols for targeted exams where dose is matched to indication/reason for exam; i.e. extremities or head) *Use of iterative reconstruction technique DLP: 1229.61 mGy-cm FINDINGS: LUNG BASES: The visualized lung bases are unremarkable. LIVER, GALLBLADDER, AND BILIARY TREE: Unremarkable. PANCREAS: Unremarkable. SPLEEN: Unremarkable. ADRENAL GLANDS: Unremarkable. KIDNEYS AND URETERS: Mild pelviectasis with narrowing at the ureteropelvic junctions bilaterally, right greater than left. Right interpolar calculus measuring 0.4 cm (image 85, series 20). No distal ureteral abnormality. BLADDER: Moderate to large distention extending to the level of the umbilicus. GASTROINTESTINAL TRACT: Small hiatal hernia. The remainder the stomach is unremarkable. The small bowel and appendix are unremarkable. No evidence for acute appendicitis. Mild to moderate gas and stool are seen throughout the colon distally to the rectum with moderate gas and stool in the rectum. ABDOMINAL WALL: Generalized moderate bulging of the supraumbilical linea alba without herniation. LYMPH NODES: No lymphadenopathy. VASCULAR: Unremarkable. PELVIC VISCERA: Mild prostatomegaly. OSSEOUS STRUCTURES: Mild thoracolumbar dextroscoliosis with moderate to severe multilevel degenerative changes. No acute/suspicious abnormality. CT/CT abdomen pelvis wo IV con IMPRESSION: 1. Generalized moderate bulging of the supraumbilical linea alba without herniation. This appears mildly increased compared to the 2020 study. 2. Mild to moderate gas and stool throughout the colon. Moderate gas and stool in the rectum. Correlate with stool output. 3. Mild bilateral renal pelviectasis with narrowing at the ureteropelvic junctions bilaterally, right greater than left suggesting chronic ureteropelvic junction stenosis. Nonobstructing right interpolar calculus. 4. Moderate to large distention of the urinary bladder. Correlate with urine output. Mild prostatomegaly. 5. Small hiatal hernia.
[2023-03-26 08:52] VITALS: BP 155/81; PULSE 65; RESP 16; TEMP 36.5; O2SAT 96; BMI 33.2
--- NOTE | 2023-03-26 09:13 | PC.NURSE ---
arrived and Pt was able to follow simple commands, equal bilateral hand grasp. Spoke with his nurse at [facility]. Stated on 06-15 he had episode of not being abusable, not even with sternal rubs. Once EMS arrived Pt woke up once on stretcher. Pt currently smiling and laughing, at bedside.
--- NOTE | 2023-03-26 10:58 | ED_ITS ---
HPI - Altered Mental Status General Chief Complaint: Altered Mental Status Stated Complaint: From [facility], AMS per EMS Time Seen by Provider: 03/26/23 10:45 Source: family (, Matthew) Mode of arrival: EMS Limitations: other (Dementia) History of Present Illness HPI narrative: 82-year-old male history of dementia, renal mass, Leiden factor 5 deficiency, DVT who [facility] to the hospital today for altered mental status. The patient's is at his bedside and states that she was called this [facility] by [facility] and told that the patient was not arousable and that they were sending him to the emergency department for evaluation. At the time my evaluation, the patient is awake and alert, he was able to tell me his name but does not answer questions. He does not appear to be in distress. The states that this is the patient's base line. The patient has been in longterm for approximately 3 years secondary to his dementia and [facility]2 years and they know the patient well. The states the patient has not been ill in any way recently that she has been aware of. Related Data Home Medications Medication Instructions Recorded Confirmed cholecalciferol (vitamin D3) 25 25 mcg PO DAILY 09/03/21 08/22/22 mcg (1,000 unit) tablet (Vitamin D3) gabapentin 100 mg capsule 2 cap PO BID 09/03/21 08/22/22 sertraline 100 mg tablet 1 tab PO DAILY 09/03/21 08/22/22 acetaminophen 325 mg tablet 650 mg PO BID 06/11/22 08/22/22 bisacodyl 10 mg rectal suppository 10 mg TX DAILY PRN Constipation 06/11/22 08/22/22 magnesium hydroxide 400 mg/5 mL 30 ml PO BEDTIME PRN Constipation 06/11/22 08/22/22 oral suspension omeprazole 20 mg tablet,delayed 20 mg PO DAILY@0630 06/11/22 08/22/22 release acetaminophen 325 mg tablet 325 mg PO Q4H PRN Fever Or Pain 08/22/22 08/22/22 ascorbic acid (vitamin C) 1,000 mg 1,000 mg PO DAILY 08/22/22 08/22/22 tablet epinephrine 0.3 mg/0.3 mL 0.3 mg IM DAILY PRN Anaphylaxis 08/22/22 08/22/22 injection, auto-injector gabapentin 100 mg capsule 200 mg PO BID PRN Agitation 08/22/22 08/22/22 metoprolol tartrate 25 mg tablet 25 mg PO BID 08/22/22 08/22/22 Previous Rx's Medication Instructions Recorded aspirin 81 mg tablet,delayed 81 mg PO DAILY #30 tabs 01/14/21 release melatonin 3 mg tablet 6 mg PO BEDTIME #30 tabs 01/14/21 quetiapine 50 mg tablet 50 mg PO TID #90 tabs 01/14/21 simvastatin 40 mg tablet 40 mg PO BEDTIME #30 tabs 01/14/21 tamsulosin 0.4 mg capsule 0.4 mg PO BEDTIME 90 days #90 caps 10/29/21 methenamine hippurate 1 gram tablet 1 g PO DAILY 90 days #90 tabs 12/05/21 Allergies Allergy/AdvReac Type Severity Reaction Status Date / Time bee pollen [BEE STINGS] Allergy Unknown UNKNOWN Verified 06/11/22 13:15 lisinopril [LISINOPRIL] Allergy Unknown FACIAL Verified 06/11/22 13:15 EDEMA Review of Systems Review of Systems: Yes Unobtainable due to mental status PMFSH Past Medical History [facility] Narrative: Social history: [facility]. Medical History Anxiety Dementia Hematuria Heterozygous factor V Leiden mutation History of GI bleed History of melanoma Hx of deep venous thrombosis Hypertension Vascular dementia Family History Family History Father Lung cancer Maternal Grandmother Breast cancer Mother Breast cancer Colon cancer Social History Social History Household Members: None Housing: Assisted Living Facility Are you a primary career orientation teacher to a significant other at home: No Do you presently have visiting nurse or other home services: No Alcohol intake: unknown Patient Tobacco Use Status: Former Tobacco user Quit Date: over 40 years ago Tobacco use type: Cigarette Years Smoked: 15 Smoked in Last 30 Days: No e-Cigarette/Vaping Use: Never Used Second Hand Smoke Exposure: No Use of substances other than those prescribed or required for medical reasons: No Advance Directives: Yes Advance Directives on File: Yes Advance Directives Date on File: 06/11/22 service: Yes Current occupational status: retired Sexual orientation: Straight/Heterosexual Physical Exam ED Vital Signs: Vital Signs - 24 hr 03/26/23 08:52 03/26/23 11:41 03/26/23 13:31 Temperature 97.7 F 97.9 F 98.1 F Pulse Rate 65 66 75 Respiratory Rate 16 18 20 Blood Pressure 155/81 H 148/70 H 145/70 H Pulse Oximetry 96 96 98 Oxygen Delivery Method Room Air Room Air Room Air 03/26/23 15:55 Temperature 98.0 F Pulse Rate 66 Respiratory Rate 16 Blood Pressure 141/77 H Pulse Oximetry 98 Oxygen Delivery Method Room Air BMI result Body Mass Index 33.2 Vital signs were normal except for an elevated blood pressure of 151/81. Exam: General: Awake, alert in no distress, he appears happy, he smiles, he does not follow simple commands but this is baseline secondary to his dementia-according to his Head: Normocephalic, atraumatic EENT: PERRL, Lids normal, sclera normal, conjunctiva normal, nose normal , ears normal, throat without erythema or exudates Neck: Supple, no adenopathy, trachea midline and nontender Lung: breath sounds symmetric, no wheezing, rales or rhonchi Chest: symmetric movement, nontender Heart: regular rate and rhythm, normal S1, S2 no murmurs or rubs Abdomen: soft, non-tender, nondistended, normal bowel sounds Back: no vertebral tenderness, no CVAT Extremities: no deformities, moves all extremities symmetrically Skin: no rashes, no lesion, normal color and warmth Neuro: Awake, alert, oriented to person, normal speech, patient does not follow simple commands, he does moves extremities symmetrically Psych: Pleasant, cooperative Medical Decision Making Medical Decision Making MDM Narrative: 82-year-old male history of dementia, renal mass, Leiden factor 5 deficiency, DVT who [facility] hospital today for altered mental status. The patient's is here in the emergency department she states he is currently at his baseline. Patient was oriented to person, does not appear to be in distress appears to be happy, does not follow commands. Vital signs revealed elevated blood pressure, exam was otherwise unremarkable. I did discuss a workup with the patient's who is a nurse and after this discussion I ordered CBC, CMP, urine collected by [place] catheter. 1610: Patient's laboratory evaluation was unremarkable did not explain his altered mental status. Patient's urinalysis is most likely not a clean-catch. I did discuss this with his and at this time we will not treat the urinalysis and only consider treatment of he becomes symptomatic and he grows a significant organism out of his urine. The CT scan of the patient's brain was unchanged from his previous. CT scan of the abdomen pelvis without IV contrast did not reveal a hernia and is more consistent with generalized bulging of the supraumbilical linea alba without herniation. This was present on previous scan in 2020 and is more pronounced Differential Diagnosis Differential Diagnoses: The differential diagnosis associated with the prese ntation includes Differential diagnosis includes was not limited to stroke, cerebral bleed, electrolyte abnormality, anemia, urinary tract infection Admission/Observation Consideration of admission/observation: Escalation of care including admission/observation considered Lab Data My independent interpretation patient's labs as follows: He CBC was normal. Potassium elevated 5.2. BUN elevated 28 with a normal creatinine of 1.3. LFTs were normal urinalysis was significant for 2+ leukocyte esterase. Microscopic revealed 3-5 RBCs, 21-50 WBCs, 1+ bacteria, 6-10 squamous cells-this was obtained from a condom cath specimen since the patient's is incontinent 03/26/23 12:29 03/26/23 12:29 Labs: Lab Results 03/26/23 03/26/23 03/26/23 Range/Units 12:29 12:29 13:49 WBC 6.9 (4.8-10.8) X10*3/uL RBC 4.46 L (4.60-5.80) X10*6/uL Hgb 13.9 L (14.0-18.0) g/dl Hct 42.1 (42.0-52.0) % MCV 94.4 (80.0-98.0) fL MCH 31.2 (27.0-33.0) pg MCHC 33.0 (31.0-36.0) g/dl RDW 13.0 (11.0-16.0) % Plt Count 161 (160-400) X10*3/uL MPV 8.3 L (9.4-12.4) fL Immature Gran % (Auto) 0.3 (0.0-0.4) % Neut % (Auto) 66.8 (45-73) % Lymph % (Auto) 24.6 (20-40) % Winkler % (Auto) 6.3 (2-11) % Eos % (Auto) 1.7 (0-4) % Baso % (Auto) 0.3 (0-2) % Lymph # (Auto) 1.7 (1.2-4.9) X10*3/uL Winkler # (Auto) 0.4 (0.1-1.2) X10*3/uL Eos # (Auto) 0.1 (0.0-0.4) X10*3/uL Baso # (Auto) 0.0 (0.0-0.2) X10*3/uL Abs Immat Gran (auto) 0.02 (0.00-0.03) X10*3/uL Absolute Neuts (auto) 4.6 (2.0-8.3) x10*3/uL Absolute Nucleated RBC 0.000 (0.0-0.012) X10*3/uL Nucleated RBC % (auto) 0.0 (0.0-0.2) /100WBC Sodium 140 (135-145) mmol/L Potassium 5.2 H (3.3-5.1) mmol/L Chloride 107 (96-108) mmol/L Carbon Dioxide 27 (22-29) mmol/L Anion Gap 11 L (12-20) BUN 28 H (9-16) mg/dL Creatinine 1.23 (0.5-1.4) mg/dL Estim Creat Clear Calc 62.3 Estimated GFR 56 Random Glucose 90 (60-115) mg/dL Calcium 9.9 D (8.4-10.2) mg/dL Total Bilirubin 0.8 (0.0-1.0) mg/dL AST 20 (5-37) U/L ALT 11 (0-40) U/L Alkaline Phosphatase 107 (39-117) U/L Total Protein 8.1 H (6.5-8.0) g/dL Albumin 4.0 (3.5-5.0) g/dL Lipase 30 (8-78) U/L Urine Color Yellow Urine Appearance Clear Urine pH 7.0 (5.0-9.0) Ur Specific [place] 1.015 (1.005-1.025) Urine Protein Negative (Neg-Trace) mg/dL Urine Glucose (UA) Negative (Negative) mg/dL Urine Ketones Negative (Negative) mg/dL Urine Blood Negative (Negative) Urine Nitrite Negative (Negative) Ur Leukocyte Esterase Moderate (2+) H (Negative) Urine RBC 3-5 H (0-2) /HPF Urine WBC 21-50 H (0-5) /HPF Ur Squamous Epith Cells 6-10 (0-2) /HPF Urine Bacteria 1+ (None Seen) Hyaline Casts 0-2 (0-2) /LPF Radiology Impression Discussion of test interpretation with radiology: I have reviewed the radiologist's reading. Radiologist Impression: CT head/brain wo IV con IMPRESSION: There are numerous chronic small vessel ischemic changes within the periventricular white matter and a few possible age indeterminate cortical infarct within both cerebral hemispheres. If there is a high level of clinical concern for acute infarct then a dedicated brain MRI can be obtained for better anatomic characterization. No acute hemorrhage. Dictated By:Poli Zavala MD CT abdomen pelvis wo IV con IMPRESSION: 1. Generalized moderate bulging of the supraumbilical linea alba without herniation. This appears mildly increased compared to the 2020 study. 2. Mild to moderate gas and stool throughout the colon. Moderate gas and stool in the rectum. Correlate with stool output. 3. Mild bilateral renal pelviectasis with narrowing at the ureteropelvic junctions bilaterally, right greater than left suggesting chronic ureteropelvic junction stenosis. Nonobstructing right interpolar calculus. 4. Moderate to large distention of the urinary bladder. Correlate with urine output. Mild prostatomegaly. 5. Small hiatal hernia. Dictated By:Leandro Horowitz MD Independent Historian Clinical information obtained from an independent historian. History obtained from or confirmed by: Spouse Discharge Plan Discharge Clinical Impression: Acute alteration in mental status Patient Disposition: er [facility] Additional Instructions: At this time, I do not have a clear cause for your change in mental status this [facility] Your blood work was unremarkable. Your urinalysis and urine microscopic evaluation is from a non-clean catch urine-at this time we are not going to treat you for urinary tract infection unless she becomes symptomatic (developed fever, chills, weakness) and/or if you grow a significant organism out of your urine and your provider wants to treat the culture. The CT scan of your brain was unchanged from your previous scans, this is reassuring. The bulging in your abdomen is not caused by hernia. Here is the radiologist's description: generalized moderate bulging of the supraumbilical linea alba without herniation. This appears mildly increased compared to the 2020. This is sometimes called diastasis recti. Continue taking medications as prescribed by your providers. Follow-up with your doctor in 2 days. Please return to the emergency department if your symptoms get worse or if you develop any symptoms that are concerning to you. Prescriptions: No Action tamsulosin 0.4 mg capsule 0.4 mg PO BEDTIME 90 Days Qty: 90 1RF acetaminophen 325 mg Tablet 650 mg PO BID magnesium hydroxide 400 mg/5 mL Suspension 30 ml PO BEDTIME PRN (Reason: Constipation) bisacodyl 10 mg Suppository 10 mg TX DAILY PRN (Reason: Constipation) omeprazole 20 mg Tablet,Delayed Release (Dr/Ec) 20 mg PO DAILY@0630 melatonin 3 mg Tablet 6 mg PO BEDTIME Qty: 30 0RF aspirin 81 mg Tablet,Delayed Release (Dr/Ec) 81 mg PO DAILY Qty: 30 0RF quetiapine 50 mg Tablet 50 mg PO TID Qty: 90 0RF simvastatin 40 mg Tablet 40 mg PO BEDTIME Qty: 30 0RF sertraline 100 mg tablet 1 tab PO DAILY gabapentin 100 mg capsule 2 cap PO BID cholecalciferol (vitamin D3) [Vitamin D3] 25 mcg (1,000 unit) Tablet 25 mcg PO DAILY acetaminophen 325 mg Tablet 325 mg PO Q4H PRN (Reason: Fever Or Pain) gabapentin 100 mg Capsule 200 mg PO BID PRN (Reason: Agitation) epinephrine 0.3 mg/0.3 mL Auto-Injector 0.3 mg IM DAILY PRN (Reason: Anaphylaxis) metoprolol tartrate 25 mg Tablet 25 mg PO BID ascorbic acid (vitamin C) 1,000 mg tablet 1,000 mg PO DAILY methenamine hippurate 1 gram tablet 1 g PO DAILY 90 Days Qty: 90 1RF
[2023-03-26 11:41] VITALS: BP 148/70; PULSE 66; RESP 18; TEMP 36.6; O2SAT 96
[2023-03-26 12:54] LABS: MANUAL DIFF FLAG NO
[2023-03-26 12:55] LABS: Basophils Percent Auto 0.3 % (0-2); Eosinophils Absolute Auto 0.1 X10*3/uL (0.0-0.4); Eosinophils Percent Auto 1.7 % (0-4); Hematocrit 42.1 % (42.0-52.0); Hemoglobin 13.9 g/dl (14.0-18.0); Imm Gran Abs Auto 0.02 X10*3/uL (0.00-0.03); Imm Gran Pct Auto 0.3 % (0.0-0.4); Lymphocytes Absolute Auto 1.7 X10*3/uL (1.2-4.9); Lymphocytes Percent Auto 24.6 % (20-40); Mean Corpuscular Hemoglobin 31.2 pg (27.0-33.0); Mean Corpuscular Volume 94.4 fL (80.0-98.0); Mean Platelet Volume 8.3 fL (9.4-12.4); Monocytes Absolute Auto 0.4 X10*3/uL (0.1-1.2); Monocytes Percent Auto 6.3 % (2-11); Neutrophils Absolute Auto 4.6 x10*3/uL (2.0-8.3); Neutrophils Percent Auto 66.8 % (45-73); Platelet Count 161 X10*3/uL (160-400); Red Blood Count 4.46 X10*6/uL (4.60-5.80); White Blood Count 6.9 X10*3/uL (4.8-10.8)
[2023-03-26 13:12] LABS: Alanine Aminotransferase 11 U/L (0-40); Alkaline Phosphatase 107 U/L (39-117); Anion Gap 11 (12-20); Aspartate Amino Transferase 20 U/L (5-37); Bilirubin Total 0.8 mg/dL (0.0-1.0); Blood Urea Nitrogen 28 mg/dL (9-16); Calcium 9.9 mg/dL (8.4-10.2); Carbon Dioxide 27 mmol/L (22-29); Chloride 107 mmol/L (96-108); Creatinine Clr Calc Pharmacy 62.3; Estimated Glomerular Filt Rate 56; Glucose Random 90 mg/dL (60-115); Lipase 30 U/L (8-78); Potassium 5.2 mmol/L (3.3-5.1); Sodium 140 mmol/L (135-145); Total Protein 8.1 g/dL (6.5-8.0)
[2023-03-26 13:31] VITALS: BP 145/70; PULSE 75; RESP 20; TEMP 36.7; O2SAT 98
[2023-03-26 13:57] LABS: Appearance Urine Clear; Color Urine Yellow; Glucose Urine UA Negative (Negative); Leukocyte Esterase Urine Moderate (2+) (Negative); Nitrite Urine Negative (Negative); Specific Gravity - Urine 1.015 (1.005-1.025); UMIC TRIGGER UACC YES; Urine Blood Negative (Negative); Urine Ketones Negative (Negative); Urine Protein Negative (Neg-Trace)
[2023-03-26 13:59] LABS: Bacteria Urine 1+ (None Seen); Hyaline Casts Urine 0-2 /LPF (0-2); UACC Culture Trigger YES; WBC Urine 21-50 /HPF (0-5)
[2023-03-26 15:55] VITALS: BP 141/77; PULSE 66; RESP 16; TEMP 36.7; O2SAT 98
--- NOTE | 2023-03-26 15:57 | PC.NURSE ---
Pt currently resting, denied any pain or discomfort, at bedside.
--- NOTE | 2023-03-26 15:58 | MHC.EDTECH ---
THIS PCT ASSUMED CARE OF PATIENT AT 1500 ,VITALS SIGN TAKEN ,PT HAD A TUNA FISH SANDWICH AND APPLE JUICE FOR SNACK ,PT AT BEDSIDE .
== END 2023-03-26 17:30 | disposition skilled nursing facility (03) ==
PROVIDERS: Emergency Provider Emergency Medicine Emergency Medical Services; PCP Internal Medicine Interventional Cardiology
DX: R41.82 Altered mental status, unspecified (principal); I10 Essential (primary) hypertension; F03.90 Unspecified dementia, unspecified severity, without behavioral disturbance, psychotic disturbance, mood disturbance, and anxiety; D68.51 Activated protein C resistance; Z86.718 Personal history of other venous thrombosis and embolism; Z87.891 Personal history of nicotine dependence
CPT/HCPCS: 36415; 70450; 74176; 80053; 81001; 83690; 85025; 87086; 99284

== ENCOUNTER 2023-04-02 05:33 | Outpatient (REF) | payer MEDICARE, SELFPAY ==
[2023-04-02 07:33] LABS: MANUAL DIFF FLAG NO
[2023-04-02 07:36] LABS: Basophils Percent Auto 0.5 % (0-2); Eosinophils Absolute Auto 0.2 X10*3/uL (0.0-0.4); Eosinophils Percent Auto 2.6 % (0-4); Hematocrit 40.5 % (42.0-52.0); Hemoglobin 12.9 g/dl (14.0-18.0); Imm Gran Abs Auto 0.03 X10*3/uL (0.00-0.03); Imm Gran Pct Auto 0.5 % (0.0-0.4); Lymphocytes Absolute Auto 1.9 X10*3/uL (1.2-4.9); Lymphocytes Percent Auto 30.5 % (20-40); Mean Corpuscular HGB Conc 31.9 g/dl (31.0-36.0); Mean Corpuscular Hemoglobin 31.3 pg (27.0-33.0); Mean Corpuscular Volume 98.3 fL (80.0-98.0); Mean Platelet Volume 9.1 fL (9.4-12.4); Monocytes Absolute Auto 0.4 X10*3/uL (0.1-1.2); Monocytes Percent Auto 6.8 % (2-11); Neutrophils Absolute Auto 3.6 x10*3/uL (2.0-8.3); Neutrophils Percent Auto 59.1 % (45-73); Platelet Count 179 X10*3/uL (160-400); Red Blood Count 4.12 X10*6/uL (4.60-5.80); Red Cell Distribution Width 13.3 % (11.0-16.0); White Blood Count 6.1 X10*3/uL (4.8-10.8)
== END 2023-04-02 05:34 | disposition home or self-care (01) ==
LOC: HO.HSH2N 05:33
PROVIDERS: Visit Provider Internal Medicine Interventional Cardiology
DX: I48.91 Unspecified atrial fibrillation (principal)
CPT/HCPCS: 36415; 85025

== ENCOUNTER 2023-04-03 22:45 | Outpatient (REF) | payer MEDICARE, SELFPAY ==
[2023-04-04 01:25] LABS: OBS Int Ctl Valid YES
[2023-04-04 01:27] LABS: OBS1 NEGATIVE (NEGATIVE)
== END 2023-04-03 22:46 | disposition home or self-care (01) ==
LOC: HO.HSH2N 22:45
PROVIDERS: Visit Provider Internal Medicine Interventional Cardiology
DX: I48.91 Unspecified atrial fibrillation (principal); K92.2 Gastrointestinal hemorrhage, unspecified
CPT/HCPCS: 82272

== ENCOUNTER 2023-04-04 08:30 | Outpatient (REF) | payer MEDICARE, SELFPAY ==
[2023-04-04 08:51] LABS: OBS Int Ctl Valid YES; OBS1 NEGATIVE (NEGATIVE)
== END 2023-04-04 08:31 | disposition home or self-care (01) ==
LOC: HO.HSH2N 08:30
PROVIDERS: Visit Provider Internal Medicine Interventional Cardiology
DX: K92.2 Gastrointestinal hemorrhage, unspecified (principal); I48.91 Unspecified atrial fibrillation
CPT/HCPCS: 82272

== ENCOUNTER 2023-04-13 07:10 | Outpatient (REF) | payer MEDICARE, SELFPAY ==
[2023-04-13 07:12] LABS: MANUAL DIFF FLAG NO
[2023-04-13 07:21] LABS: Basophils Percent Auto 0.3 % (0-2); Eosinophils Absolute Auto 0.2 X10*3/uL (0.0-0.4); Hematocrit 39.1 % (42.0-52.0); Hemoglobin 12.4 g/dl (14.0-18.0); Imm Gran Abs Auto 0.01 X10*3/uL (0.00-0.03); Imm Gran Pct Auto 0.2 % (0.0-0.4); Lymphocytes Absolute Auto 2.1 X10*3/uL (1.2-4.9); Lymphocytes Percent Auto 32.8 % (20-40); Mean Corpuscular HGB Conc 31.7 g/dl (31.0-36.0); Mean Corpuscular Hemoglobin 30.9 pg (27.0-33.0); Mean Corpuscular Volume 97.5 fL (80.0-98.0); Mean Platelet Volume 9.1 fL (9.4-12.4); Monocytes Absolute Auto 0.7 X10*3/uL (0.1-1.2); Neutrophils Absolute Auto 3.3 x10*3/uL (2.0-8.3); Neutrophils Percent Auto 52.7 % (45-73); Platelet Count 160 X10*3/uL (160-400); Red Blood Count 4.01 X10*6/uL (4.60-5.80); Red Cell Distribution Width 13.3 % (11.0-16.0); White Blood Count 6.3 X10*3/uL (4.8-10.8)
== END 2023-04-13 07:11 | disposition home or self-care (01) ==
LOC: HO.HSH2N 07:10
PROVIDERS: Visit Provider Internal Medicine Interventional Cardiology
DX: R31.9 Hematuria, unspecified (principal)
CPT/HCPCS: 36415; 85025

== ENCOUNTER 2023-04-14 06:23 | Outpatient (REF) | payer MEDICARE, SELFPAY ==
[2023-04-14 06:26] LABS: MANUAL DIFF FLAG NO
[2023-04-14 06:53] LABS: Basophils Percent Auto 0.3 % (0-2); Eosinophils Absolute Auto 0.1 X10*3/uL (0.0-0.4); Eosinophils Percent Auto 2.4 % (0-4); Hematocrit 39.1 % (42.0-52.0); Hemoglobin 12.5 g/dl (14.0-18.0); Imm Gran Abs Auto 0.02 X10*3/uL (0.00-0.03); Imm Gran Pct Auto 0.3 % (0.0-0.4); Lymphocytes Absolute Auto 1.9 X10*3/uL (1.2-4.9); Lymphocytes Percent Auto 31.8 % (20-40); Mean Corpuscular Hemoglobin 30.6 pg (27.0-33.0); Mean Corpuscular Volume 95.6 fL (80.0-98.0); Mean Platelet Volume 8.7 fL (9.4-12.4); Monocytes Absolute Auto 0.4 X10*3/uL (0.1-1.2); Monocytes Percent Auto 7.4 % (2-11); Neutrophils Absolute Auto 3.4 x10*3/uL (2.0-8.3); Neutrophils Percent Auto 57.8 % (45-73); Platelet Count 152 X10*3/uL (160-400); Red Blood Count 4.09 X10*6/uL (4.60-5.80); Red Cell Distribution Width 13.4 % (11.0-16.0); White Blood Count 5.8 X10*3/uL (4.8-10.8)
== END 2023-04-14 06:24 | disposition home or self-care (01) ==
LOC: HO.HSH2N 06:23
PROVIDERS: Visit Provider Internal Medicine Interventional Cardiology
DX: K92.2 Gastrointestinal hemorrhage, unspecified (principal)
CPT/HCPCS: 36415; 85025

== ENCOUNTER 2023-05-12 09:29 | Outpatient (AMB) | payer MEDICARE, SELFPAY ==
--- NOTE | 2023-05-10 09:44 | A.OFFVIS_ITS ---
Intake Intake Visit Reasons: Gross Hematuria Intake Note: [facility] Patient is Present for Gross Hematuria Urology Med: Tamsulosin, Methenamine Antibiotic Allergy: None Blood Thinner: Aspirin, (Eliquis is currently on Hold) Tar And Ammonia Pump Operator Required: No Allergies bee pollen [BEE STINGS] Allergy (Unknown, Verified 05/10/23 09:44) UNKNOWN lisinopril [LISINOPRIL] Allergy (Unknown, Verified 05/10/23 09:44) FACIAL EDEMA HPI HPI Comments History of Present Illness Details Arcadio is a very pleasant male. He is a patient of Dr. Hook. He is seen for the following urologic conditions - microscopic hematuria, gross hematuria - weakness of stream [facility] accompanied by Prior evaluation 2020 Episode of hematuria Recent CT scan with small right renal stone Large bladder with large prostate Recommend hold Eliquis Add finasteride May restart Eliquis in 2-3 weeks if warranted Six month follow-up Lower urinary tract symptoms Progressive weakness of stream Current therapy tamsulosin Gross hematuria Imaging - CT September 2020 persistent left renal thickening, NAD bladder. Scarring bilateral on kidneys. Consistent with prior imaging. Cytology - pending Prior 09/2020 discussion regarding ureteroscopy and potential biopsy. Had been decided not to proceed secondary to progressive memory related issues. Prior hematuria evaluation negative [facility] Medical History (Updated 05/20/23 @ 15:48 by Cayden Jiménez MD) Renal mass Hematuria Vascular dementia Anxiety Dementia Hypertension History of GI bleed Heterozygous factor V Leiden mutation History of melanoma Hx of deep venous thrombosis Family History Father Lung cancer Maternal Grandmother Breast cancer Mother Breast cancer Colon cancer Social History Household Members: None Housing: Assisted Living Facility Are you a primary transitional care manager to a significant other at home: No Do you presently have visiting nurse or other home services: No Alcohol intake: unknown Patient Tobacco Use Status: Former Tobacco user Quit Date: over 40 years ago Tobacco use type: Cigarette Years Smoked: 15 e-Cigarette/Vaping Use: Never Used Second Hand Smoke Exposure: No Advance Directives Date on File: 06/11/22 service: Yes Current occupational status: retired Sexual orientation: Straight/Heterosexual Review of Systems Const Denies chills and Denies fever(s) Card Reports no additional complaints and Denies syncope Resp Denies cough GI Denies abdominal pain and Denies heartburn Reports as per HPI and Denies change in libido Neuro Denies syncope Psych Denies change in libido Endo Denies change in libido Physical Exam Const General: cooperative, healthy appearing, comfortable and no acute distress Orientation/consciousness: patient oriented x3 HEENT Face and sinus: Yes normal facial exam Mouth: moist mucous membranes Neck Neck: Yes normal visual inspection, Yes full ROM and Yes trachea midline Chest Chest palpation & inspection: normal inspection of the chest Resp Effort & Inspection: normal respiratory effort, able to speak in complete sentences and no respiratory distress GI Inspection: Yes normal to inspection Back/Spine/Pelvis Cervical Spine: normal cervical lordosis Thoracic/Lumbar Spine: thoracic and lumbar spine normal to inspection Skin General skin exam: no rashes or lesions noted Neuro General: patient oriented x3, gait normal, tone normal and moves all extremities Extrem General: Yes normal to inspection and Yes capillary refill normal Assessment & Plan Assessment & Plan (1) Hematuria: Code(s): R31.9 - Hematuria, unspecified Qualifiers: Hematuria type: gross Qualified Code(s): R31.0 - Gross hematuria Plan At finasteride 6 month follow-up Patient Instructions: Imaging studies, laboratory and physical exam results were discussed and reviewed in detail. No major barriers to patient understanding were identified. An opportunity to ask questions regarding the treatment plan was provided. All questions were answered. The patient expressed understanding and agreement with the above treatment plan. The patient is aware they should contact our office by phone for worsening of their current condition or the appearance of new urologic symptoms. Compliance is encouraged with any medications and followup testing that is ordered. It is a privilege to participate in the urologic care of your patient. If you have any questions or concerns regarding treatment for the above conditions, or other urologic issues, please do not hesitate to contact me. The office telephone contact is [phone]. This note is constructed using voice recognition software. While every effort has been made to ensure accuracy senior analytical chemist errors may have been included. Yours sincerely, Dr Cayden Jiménez MD, [facility] - Urology Providers of Expert, Compassionate Care for the Genitourinary System Coding Level of Care Code 78671-[id number] Fac sub, mod Diagnoses Gross hematuria R31.0 Hematuria type: gross
== END 2023-05-12 16:30 | disposition home or self-care (01) ==
LOC: HO.HUSV 09:29
PROVIDERS: PCP Internal Medicine Interventional Cardiology; Visit Provider Urology
DX: R31.0 Gross hematuria (principal)
CPT/HCPCS: 99309

== ENCOUNTER 2023-05-18 11:54 | Outpatient (REF) | payer MEDICARE, SELFPAY | END 2023-05-18 11:55 | disposition home or self-care (01) | LOC: HO.HSH2N 11:54 | PROVIDERS: Visit Provider Internal Medicine Endocrinology, Diabetes & Metabolism | DX: Z13.89 Encounter for screening for other disorder (principal) ==

== ENCOUNTER 2023-05-19 07:44 | Outpatient (REF) | payer MEDICARE, SELFPAY | END 2023-05-19 07:45 | disposition home or self-care (01) | LOC: HO.HSH2N 07:44 | PROVIDERS: Visit Provider Internal Medicine Endocrinology, Diabetes & Metabolism | DX: R19.5 Other fecal abnormalities (principal) | CPT/HCPCS: 87507 ==

== ENCOUNTER 2023-07-26 05:06 | Outpatient (REF) | payer MEDICARE, SELFPAY ==
[2023-07-26 07:17] LABS: Anion Gap 13 (12-20); Blood Urea Nitrogen 30 mg/dL (9-16); Carbon Dioxide 24 mmol/L (22-29); Chloride 108 mmol/L (96-108); Estimated Glomerular Filt Rate 59; Glucose Fasting 79 mg/dL (60-99); Magnesium 2.2 mg/dL (1.6-2.6); Potassium 4.8 mmol/L (3.3-5.1); Sodium 140 mmol/L (135-145)
[2023-07-26 07:32] LABS: Thyroid Stimulating Hormone 1.24 uIU/mL (0.32-4.0)
== END 2023-07-26 05:07 | disposition home or self-care (01) ==
LOC: HO.HSH2N 05:06
PROVIDERS: Visit Provider Internal Medicine
DX: I48.91 Unspecified atrial fibrillation (principal)
CPT/HCPCS: 36415; 80048; 83735; 84443

== ENCOUNTER 2023-10-06 05:45 | Outpatient (REF) | payer MEDICARE, SELFPAY ==
[2023-10-06 05:59] LABS: Appearance Urine Cloudy; Color Urine Yellow; Glucose Urine UA Negative (Negative); Leukocyte Esterase Urine Large (3+) (Negative); Nitrite Urine Negative (Negative); PH 5.5 (5.0-9.0); Specific Gravity - Urine 1.015 (1.005-1.025); UMIC TRIGGER UACC YES; Urine Blood Trace (Negative); Urine Ketones Negative (Negative); Urine Protein Negative (Neg-Trace)
[2023-10-06 06:04] LABS: Bacteria Urine 1+ (None Seen); Hyaline Casts Urine 0-2 /LPF (0-2); Squamous Epithelial Cell Urine 0-2 /HPF (0-2); UACC Culture Trigger YES; WBC Urine >50 /HPF (0-5)
== END 2023-10-06 05:46 | disposition home or self-care (01) ==
LOC: HO.HSH2N 05:45
PROVIDERS: Visit Provider Internal Medicine Interventional Cardiology
DX: R82.998 Other abnormal findings in urine (principal)
CPT/HCPCS: 81001; 81003; 87086

== ENCOUNTER 2023-11-11 06:05 | Observation (INO) | payer MEDICARE, SELFPAY ==
[2023-11-11] VITALS (19 sets, daily range): BP systolic 74–127; BP diastolic 46–91; PULSE 69–156; RESP 16–25; TEMP 36.1–38.8; O2SAT 93–97; BMI 30.1; BMI 31.0
--- NOTE | ~2023-11-11 | US_ITS ---
EXAMINATION: US ABDOMEN LIMITED CLINICAL INFORMATION: Abdominal pain with question of cholecystitis.. COMPARISON: None available. TECHNIQUE: Real-time imaging of the right upper quadrant abdominal viscera. The exam is severely limited by body habitus. FINDINGS: PANCREAS: Obscured by bowel gas and could not be evaluated LIVER: Visualization is limited. Echogenicity is increased consistent with hepatic steatosis. No focal hepatic lesion. There is no intrahepatic biliary duct dilatation seen. GALLBLADDER: Multiple stones are present in the gallbladder. The gallbladder wall does not appear thickened. No pericholecystic fluid is seen. There is a positive Plaza's sign. COMMON BILE DUCT: Mildly dilated measuring 0.8 cm in diameter. RIGHT KIDNEY: No hydronephrosis. No renal calculi or focal parenchymal lesions. The kidney measures 11.1 cm in maximum dimension. FREE FLUID: None. US/US abdomen limited IMPRESSION: 1. Cholelithiasis with positive Plaza's sign. 2. Mildly dilated common bile duct. 3. Hepatic steatosis.
--- NOTE | ~2023-11-11 | CT_ITS ---
EXAMINATION: CT ABDOMEN AND PELVIS WITH CONTRAST CLINICAL INFORMATION: Fever, abdominal pain and tenderness. COMPARISON: CT abdomen and pelvis from 03/26/2023. TECHNIQUE: Multidetector volumetric images were obtained from the superior aspect of the liver through the pubic symphysis following administration 85 mL of Omnipaque 350 intravenous contrast. Sagittal and coronal reformatted images were obtained on the technologist's workstation. invasive cardiovascular technologist reports that patient was unable to follow breathing instructions due to dementia. This CT examination was performed using dose optimization techniques as appropriate, variously including the following: *Automated exposure control *Adjustment of mA and/or kV according to patient size (this includes techniques or standardized protocols for targeted exams where dose is matched to indication/reason for exam; i.e. extremities or head) *Use of iterative reconstruction technique DLP: 1832 mGy-cm FINDINGS: LUNG BASES: No pulmonary consolidation or pleural effusion. Atherosclerotic calcification of coronary arteries. The evaluation of the bases is limited by the respiratory motion. HEPATOBILIARY: Liver has normal size and contour. The density of the liver is in the range of 5-25 Hounsfield units which suggests diffuse steatosis. No focal lesions are seen on this limited examination. Gallbladder is physiologically distended. There appears to be hyperdense sludge and/or small posteriorly layering calcified stones of the posterior gallbladder wall. No overt gallbladder wall thickening. No dilated bile ducts. PANCREAS: No edema, pancreatic ductal dilatation or mass. SPLEEN: Normal. ADRENAL GLANDS: Normal. KIDNEYS AND URETERS: The evaluation of the kidneys is limited on these motion degraded images. There appears to be chronic moderate atrophy of the right kidney. Both kidneys chronically have lobulated contour. No renal or ureteral stones. No hydroureteronephrosis or perinephric edema. BLADDER: There appears to be chronic minimal diffuse thickening of the wall of the bladder. No evidence of bladder mass. No bladder calculi. Small diverticulum is present at the anterior bladder dome. BOWEL AND PERITONEUM: A very small hiatal hernia is suspected. No dilated bowel loops. The appendix is normal. No evidence of focal bowel wall thickening, mesenteric fat stranding, free fluid or pneumoperitoneum. There is fecal material within the sigmoid colon and rectum. No rectal wall thickening or perirectal inflammatory change. ABDOMINAL WALL: Chronic diastases of rectus abdominis muscles. VASCULATURE: Mild atherosclerosis of the abdominal aorta without aneurysm. Inferior vena cava is normal. No retroperitoneal hematoma. LYMPH NODES: No pathologic sized lymph nodes in the abdomen or pelvis. No inguinal lymphadenopathy. PELVIC VISCERA: Unremarkable. MUSCULOSKELETAL: Multilevel degenerative arthropathy and dextroscoliosis of the lumbar spine. Chronic osteonecrosis involving anterosuperior aspect of each femoral head. No acute or suspicious osseous abnormality. The evaluation of the hips is partially limited by patient's motion. CT/CT abdomen pelvis w IV con IMPRESSION: * No acute imaging abnormalities in the abdomen or pelvis. * Diffuse hepatic steatosis. * There appears to be slightly hyperdense sludge and/or layering of small calcified stones of the gallbladder. No evidence of cholecystitis on this somewhat limited exam. * Chronic osteonecrosis involving anterosuperior aspect of each femoral head.
--- NOTE | ~2023-11-11 | XR_ITS ---
EXAMINATION: XR CHEST CLINICAL INFORMATION: GI bleed COMPARISON: Portable chest 08/22/2022 TECHNIQUE: AP upright portable view of the chest was obtained. 7:45 AM FINDINGS: The lungs are hyperinflated. No acute findings. No airspace disease, pleural effusion or pneumothorax. The cardiomediastinal silhouette is stable. Mild elevation of the left hemidiaphragm is noted. No acute osseous abnormality. XR/XR chest 1V IMPRESSION: No acute pulmonary disease.
--- NOTE | 2023-11-11 06:12 | ECG_ITS ---
Test Reason : TACHYCARDIA Blood Pressure : / mmHG Vent. Rate : 160 BPM Atrial Rate : 000 BPM P-R Int : 000 ms QRS Dur : 098 ms QT Int : 302 ms P-R-T Axes : 000 247 010 degrees QTc Int : 492 ms Supraventricular tachycardia with Right bundle branch block aberrancy Abnormal ECG When compared with ECG of 22-AUG-2022 07:31, Supraventricular tachycardia has replaced Normal sinus rhythm Referred By: Nicole Espana Electronically Signed By:CAREY MORENO MD
[2023-11-11] MEDS: Pantoprazole Sodium 40 MG/10 ML VIAL IVPUSH (06:43)
[2023-11-11] MEDS: cefTRIAXone sodium 1 GM in 0.9 % Sodium Chloride 50 ML IV (06:43)
[2023-11-11] MEDS: 0.9 % Sodium Chloride 1,000 ML 999 ML IV ×3 (06:43→08:30)
[2023-11-11 06:51] LABS: Basophils Percent Auto 0.1 % (0-2); Hematocrit 41.9 % (42.0-52.0); Imm Gran Abs Auto 0.03 X10*3/uL (0.00-0.03); Imm Gran Pct Auto 0.4 % (0.0-0.4); Lymphocytes Absolute Auto 0.4 X10*3/uL (1.2-4.9); Lymphocytes Percent Auto 4.3 % (20-40); MANUAL DIFF FLAG SCAN; Mean Corpuscular HGB Conc 33.4 g/dl (31.0-36.0); Mean Corpuscular Hemoglobin 31.4 pg (27.0-33.0); Mean Corpuscular Volume 93.9 fL (80.0-98.0); Mean Platelet Volume 8.7 fL (9.4-12.4); Monocytes Absolute Auto 0.3 X10*3/uL (0.1-1.2); Monocytes Percent Auto 3.4 % (2-11); Neutrophils Absolute Auto 7.4 x10*3/uL (2.0-8.3); Neutrophils Percent Auto 91.8 % (45-73); Platelet Count 172 X10*3/uL (160-400); Red Blood Count 4.46 X10*6/uL (4.60-5.80); Red Cell Distribution Width 13.2 % (11.0-16.0); SCAN SMEAR FLAG 1; White Blood Count 8.1 X10*3/uL (4.8-10.8)
[2023-11-11 07:02] LABS: Lactic Acid 1.2 mmol/L (0.5-2.0)
[2023-11-11 07:03] LABS: INTERNATIONAL NORM RATIO 1.4 (0.9-1.1); Prothrombin Time 16.7 SEC (11.1-13.3)
[2023-11-11 07:05] LABS: Alanine Aminotransferase 8 U/L (0-40); Albumin Level 3.5 g/dL (3.5-5.0); Alkaline Phosphatase 95 U/L (39-117); Anion Gap 11 (12-20); Aspartate Amino Transferase 16 U/L (5-37); Bilirubin Direct 0.2 mg/dL (0.0-0.5); Bilirubin Total 0.6 mg/dL (0.0-1.0); Blood Urea Nitrogen 32 mg/dL (9-16); Calcium 8.8 mg/dL (8.4-10.2); Carbon Dioxide 22 mmol/L (22-29); Chloride 108 mmol/L (96-108); Creatinine Clr Calc Pharmacy 62.8; Estimated Glomerular Filt Rate 57; Glucose Random 120 mg/dL (60-115); Lipase 25 U/L (8-78); Potassium 4.4 mmol/L (3.3-5.1); Sodium 137 mmol/L (135-145); Total Protein 7.4 g/dL (6.5-8.0)
[2023-11-11 07:12] LABS: Troponin-I High Sensitivity 77.4 ng/L (<3.5-35.0)
[2023-11-11 07:17] LABS: B Type Natriuretic Peptide 215 pg/mL (<100)
[2023-11-11 07:20] LABS: SLIDE REVIEW VERIFIED
--- NOTE | 2023-11-11 07:22 | PC.NURSE ---
Multiple attempts at mcmahan insertion failed, including with assistance from MD Vizcaino. Md medina.
[2023-11-11 07:28] LABS: Influenza A PCR NEGATIVE (Negative); Influenza B PCR NEGATIVE (Negative); Resp Syncy Virus RNA Qual PCR NEGATIVE (Negative); SARS COV2 PCR INHOUSE NEGATIVE (Negative)
--- NOTE | 2023-11-11 07:32 | ED.GENADULT ---
HPI - General Adult General Chief complaint: General Medical Stated complaint: H[facility]OTENSION [facility] Time Seen by Provider: 11/11/23 07:13 History of Present Illness HPI narrative: The patient is an 83-year-old male with a history of dementia who lives at the [facility] home. Apparently he seemed acutely ill this morning with hypotension, tachycardia and vomiting. He would apparently vomited some dark material but had had some chocolate pudding not long before the episode of vomiting. On initial arrival to the emergency room blood cultures were ordered as were IV fluids. The the overnight emergency physician additionally ordered a dose of ceftriaxone. When I encountered the patient he had received a L of normal saline and attempts were being made to obtain a urine specimen using a urinary catheter. Patient is demented and nonverbal and is unable to give any additional history. A review of previous records show that he has been evaluated by Urology in the past for a weak urinary stream. The patient has history of DVT and is on apixaban. The patient has a MOLST form that indicates that he is DNR/DNI/do not transfer to hospital unless needed for comfort Related Data Home Medications ?Medication ?Instructions ?Recorded ?Confirmed cholecalciferol (vitamin D3) 25 25 mcg PO DAILY 09/03/21 11/11/23 mcg (1,000 unit) tablet (Vitamin D3) gabapentin 100 mg capsule 2 cap PO DAILY@1600 09/03/21 11/11/23 acetaminophen 325 mg tablet 650 mg PO BID@0900,1700 06/11/22 11/11/23 bisacodyl 10 mg rectal suppository 10 mg MI DAILY PRN Constipation 06/11/22 11/11/23 omeprazole 20 mg tablet,delayed 20 mg PO DAILY@0630 06/11/22 11/11/23 release acetaminophen 325 mg tablet 650 mg PO Q4H PRN Fever Or Pain 08/22/22 11/11/23 ascorbic acid (vitamin C) 1,000 mg 1,000 mg PO DAILY 08/22/22 11/11/23 tablet epinephrine 0.3 mg/0.3 mL 0.3 mg IM ONCE PRN Anaphylaxis 08/22/22 11/11/23 injection, auto-injector metoprolol tartrate 25 mg tablet 25 mg PO BID 08/22/22 11/11/23 ammonium lactate 12 % lotion 1 appl topical BID 11/11/23 11/11/23 apixaban 5 mg tablet 5 mg PO BID 11/11/23 11/11/23 aspirin 81 mg chewable tablet 81 mg PO DAILY 11/11/23 11/11/23 bisacodyl 5 mg tablet 5 mg PO DAILY PRN Constipation 11/11/23 11/11/23 finasteride 5 mg tablet 5 mg PO BEDTIME 11/11/23 11/11/23 gabapentin 100 mg capsule 200 mg PO BID PRN Agitation 11/11/23 11/11/23 gabapentin 300 mg capsule 300 mg PO DAILY@199911/11/23 11/11/23 gabapentin 400 mg capsule 400 mg PO DAILY@1300 11/11/23 11/11/23 oseltamivir 30 mg capsule (Tamiflu) 30 mg PO DAILY@1700 11/11/23 11/11/23 polyethylene glycol 3350 17 17 g PO BID@0900,1700 11/11/23 11/11/23 gram/dose oral powder (Miralax) quetiapine 100 mg tablet 100 mg PO DAILY@1400 11/11/23 11/11/23 quetiapine 25 mg tablet 25 mg PO BID@0600,199911/11/23 11/11/23 sertraline 25 mg tablet 25 mg PO DAILY@0900 11/11/23 11/11/23 sertraline 50 mg tablet 50 mg PO DAILY 11/11/23 11/11/23 Previous Rx's ?Medication ?Instructions ?Recorded melatonin 3 mg tablet 6 mg (2 x 3 mg) PO BEDTIME #30 tabs 01/14/21 simvastatin 40 mg tablet 40 mg PO BEDTIME #30 tabs 01/14/21 tamsulosin 0.4 mg capsule 0.4 mg PO BEDTIME 90 days #90 caps 10/29/21 methenamine hippurate 1 gram tablet 1 g PO DAILY 90 days #90 tabs 12/05/21 Allergies Allergy/AdvReac Type Severity Reaction Status Date / Time bee pollen [BEE STINGS] Allergy Unknown UNKNOWN Verified 11/11/23 06:20 lisinopril [LISINOPRIL] Allergy Unknown FACIAL Verified 11/11/23 06:20 EDEMA Review of Systems Review of Systems: Yes Unobtainable due to mental status PMFSH Past Medical History Medical History Renal mass Hematuria Vascular dementia Anxiety Dementia Hypertension History of GI bleed Heterozygous factor V Leiden mutation History of melanoma Hx of deep venous thrombosis Family History Family History Father Lung cancer Maternal Grandmother Breast cancer Mother Breast cancer Colon cancer Social History Social History Household Members: None Housing: Assisted Living Facility Are you a primary direct care counselor to a significant other at home: No Do you presently have visiting nurse or other home services: No Alcohol intake: unknown 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 Patient Tobacco Use Status: Former Tobacco user Quit Date: over 40 years ago Tobacco use type: Cigarette Years Smoked: 15 Smoked in Last 30 Days: No e-Cigarette/Vaping Use: Never Used Second Hand Smoke Exposure: No Use of substances other than those prescribed or required for medical reasons: No Advance Directives: Yes Advance Directives on File: Yes Advance Directives Date on File: 06/11/22 Nutrition Risks: No Nutritional Risk service: Yes Current occupational status: retired Sexual orientation: Straight/Heterosexual Physical Exam ED Vital Signs: Vital Signs - 24 hr 11/11/23 06:18 11/11/23 07:23 11/11/23 07:38 Temperature 99.4 F 101.8 F H Pulse Rate 156 H 153 H 116 H Respiratory Rate 22 H 20 21 H Blood Pressure 88/46 L 124/56 L 74/48 L Pulse Oximetry 94 94 93 Oxygen Delivery Method Room Air Room Air Room Air 11/11/23 07:45 11/11/23 07:56 11/11/23 08:03 Temperature Pulse Rate 124 H 155 H 152 H Respiratory Rate 23 H 22 H 21 H Blood Pressure 81/54 L 92/61 113/65 Pulse Oximetry 94 94 97 Oxygen Delivery Method Room Air Room Air Room Air 11/11/23 09:26 11/11/23 10:20 11/11/23 11:47 Temperature Pulse Rate 150 H 148 H 146 H Respiratory Rate 20 25 H 25 H Blood Pressure 86/47 L 113/65 111/63 Pulse Oximetry 95 95 95 Oxygen Delivery Method Room Air Room Air Room Air 11/11/23 11:48 11/11/23 12:11 Temperature Pulse Rate 145 H 150 H Respiratory Rate 17 25 H Blood Pressure 89/59 L 123/91 H Pulse Oximetry 96 95 Oxygen Delivery Method Room Air Nasal Cannula Room Air BMI result Body Mass Index 31.0 Const Other: The patient is a chronically ill-appearing 83-year-old male who seems awake but is nonverbal. His demeanor suggests dementia. HENMT Other: Face is symmetrical. Mucous membranes slightly dry. Eyes Other: Pupils are round equal, conjunctivae clear Neck Other: No JVD Resp Other: Lungs are clear bilaterally. Cardio Other: The patient had a rapid heart rate which was quite labile in its tachycardia. No definite murmur appreciated. The heart rate was sometimes regular and sometimes irregular. GI Other: Possible mild generalized abdominal tenderness but no focal rebound or guarding. Other: The patient had unremarkable external genitalia. The patient is circumcised. Urethral meatus is not large but not markedly small. Nevertheless I was unable to pass a urinary catheter more than a cm or so before encountering unusual resistance. Skin Other: Skin is pale and dry Neuro Other: The patient was awake but not terribly alert. He seemed demented. He did not speak much but when he spoke he had no dysarthria. Face was symmetrical. Eye movements intact. Tone is symmetrical in his extremities. No focal findings Extrem Other: No calf swelling or tenderness Medications Administered Generic Name Dose Route Start Last Admin Trade Name Freq PRN Reason Stop Dose Admin Piperacillin Sod/Tazobactam 100 mls @ 200 mls/hr 11/11/23 13:30 11/11/23 14:44 Sod 4.5 gm/ Sodium Chloride IV 200 mls/hr Q6H LUCAS Administration Discontinued Medications Generic Name Dose Route Start Last Admin Trade Name Freq PRN Reason Stop Dose Admin Acetaminophen 650 mg 11/11/23 09:32 11/11/23 10:16 Acetaminophen Supp 650 Mg Supp.Rect MI 11/11/23 09:33 650 mg ONCE ONE Administration Digoxin 0.25 mg 11/11/23 08:12 11/11/23 10:09 Digoxin 0.5 Mg/2 Ml Ampul IVPUSH 11/11/23 08:13 0.25 mg ONCE ONE Administration Digoxin 0.25 mg 11/11/23 12:33 11/11/23 13:41 Digoxin 0.5 Mg/2 Ml Ampul IVPUSH 11/11/23 12:34 0.25 mg ONCE ONE Administration Diltiazem HCl 10 mg 11/11/23 07:25 11/11/23 08:21 Diltiazem Hcl 50 Mg/10 Ml Vial IVPUSH 11/11/23 07:26 10 mg STAT STA Administration Sodium Chloride 1,000 mls @ 999 mls/hr 11/11/23 06:11 11/11/23 07:35 Ns IV 11/11/23 07:11 Infused .Q1H1M ONE Infusion Ceftriaxone Sodium 1 gm/ 50 mls @ 100 mls/hr 11/11/23 06:33 11/11/23 07:21 Sodium Chloride IV 11/11/23 07:02 Infused ONCE ONE Infusion Sodium Chloride 1,000 mls @ 999 mls/hr 11/11/23 07:30 11/11/23 10:19 Ns IV 11/11/23 08:30 Infused .Q1H1M LUCAS Infusion Sodium Chloride 1,000 mls @ 999 mls/hr 11/11/23 08:30 11/11/23 10:20 Ns IV 11/11/23 09:30 Infused .Q1H1M ULCAS Infusion Lactated Ringer's 1,000 mls @ 999 mls/hr 11/11/23 12:00 11/11/23 12:15 Lr IV 11/11/23 13:00 999 mls/hr .Q1H1M LUCAS Administration Iohexol 100 ml 11/11/23 09:50 11/11/23 09:51 Iohexol 350 Mg/Ml 100 Ml Infus..Btl IV 11/11/23 09:51 85 ml ONCE ONE Administration Metoprolol Tartrate 25 mg 11/11/23 10:43 11/11/23 11:52 Metoprolol Tartrate 25 Mg Tablet PO 11/11/23 10:44 25 mg ONCE ONE Administration Protocol Pantoprazole Sodium 40 mg 11/11/23 06:11 11/11/23 06:43 Pantoprazole Sodium 40 Mg/10 Ml Vial IVPUSH 11/11/23 06:12 40 mg ONCE ONE Administration Medical Decision Making Medical Decision Making MDM Narrative: The patient is an 83-year-old male with history of dementia. He also has a history of paroxysmal atrial fibrillation and is on anticoagulation. He also has a history of probable urethral stricture. He comes room the [facility] home today with a fever. He was seen briefly by the previous doctor from the overnight shift to ordered blood cultures and ceftriaxone on the presumption of a possible urinary tract infection. Obtaining a urine specimen was difficult. The nurse attempted to place a Rosen catheter but could not introduce a Rosen catheter because of resistance near the meatus. I also attempted under sterile conditions to pass a 14 Cymro urinary catheter but could not get more than a few mm deep into the meatus. During this time the patient was in a rapid heart rate. The 1st EKG showed a narrow complex tachycardia at about 150 beats per minute which might have been SVT or rapid atrial fibrillation. The patient was also somewhat hypotensive and was given IV fluids. During a period of observation the patient's heart rate was extremely labile. He seemed to stay in atrial fibrillation with varying heart rates between the 90s at times up to 160 at other times. Patient's blood pressure seemed to vary with his heart rate. When his heart rate was faster his blood pressure was low. When his heart rate was slower his blood pressure was better. The patient's lactic acids are normal. Although the patient has a urinary tract infection based on his urinalysis (ultimately the patient voided through a condom catheter) and he has a fever I do not think he is frankly septic. He does not have an elevated white count (white count is 8.1, 92% neutrophils) and his C-reactive protein is elevated at only 3.7. I think the patient has episodes of hypotension are unlikely to represent neri septic shock and much more likely to be a consequence of his atrial fibrillation with rapid ventricular response. To address his atrial fibrillation with rapid ventricular response the patient was given 10 mg of diltiazem IV, 0.25 mg of digoxin IV, and 25 mg of metoprolol orally (his normal oral dose). During the period of observation in the emergency room the patient is heart rate improved and ultimately he converted to a sinus rhythm. The patient has been admitted to the hospitalist service. Of note goals of care were discussed with the patient's . She is happy for him to receive IV antibiotics and IV fluids but she does not want more invasive care such as a central line. Lab Data 11/11/23 06:28 11/11/23 06:28 Labs: Lab Results 11/11/23 11/11/23 11/11/23 Range/Units 06:28 06:35 06:36 WBC 8.1 (4.8-10.8) X10*3/uL RBC 4.46 L (4.60-5.80) X10*6/uL Hgb 14.0 (14.0-18.0) g/dl Hct 41.9 L (42.0-52.0) % MCV 93.9 (80.0-98.0) fL MCH 31.4 (27.0-33.0) pg MCHC 33.4 (31.0-36.0) g/dl RDW 13.2 (11.0-16.0) % Plt Count 172 (160-400) X10*3/uL MPV 8.7 L (9.4-12.4) fL Immature Gran % (Auto) 0.4 (0.0-0.4) % Neut % (Auto) 91.8 H (45-73) % Lymph % (Auto) 4.3 L (20-40) % [place] % (Auto) 3.4 (2-11) % Eos % (Auto) 0.0 (0-4) % Baso % (Auto) 0.1 (0-2) % Lymph # (Auto) 0.4 L (1.2-4.9) X10*3/uL [place] # (Auto) 0.3 (0.1-1.2) X10*3/uL Eos # (Auto) 0.0 (0.0-0.4) X10*3/uL Baso # (Auto) 0.0 (0.0-0.2) X10*3/uL Abs Immat Gran (auto) 0.03 (0.00-0.03) X10*3/uL Absolute Neuts (auto) 7.4 (2.0-8.3) x10*3/uL Absolute Nucleated RBC 0.000 (0.0-0.012) X10*3/uL Nucleated RBC % (auto) 0.0 (0.0-0.2) /100WBC Smear Tech's Comments VERIFIED PT 16.7 H (11.1-13.3) SEC INR 1.4 H (0.9-1.1) Sodium 137 (135-145) mmol/L Potassium 4.4 (3.3-5.1) mmol/L Chloride 108 (96-108) mmol/L Carbon Dioxide 22 (22-29) mmol/L Anion Gap 11 L (12-20) BUN 32 H (9-16) mg/dL Creatinine 1.21 (0.5-1.4) mg/dL Estim Creat Clear Calc 62.8 Estimated GFR 57 Random Glucose 120 H (60-115) mg/dL Lactic Acid 1.2 (0.5-2.0) mmol/L Calcium 8.8 (8.4-10.2) mg/dL Total Bilirubin 0.6 (0.0-1.0) mg/dL Direct Bilirubin 0.2 (0.0-0.5) mg/dL AST 16 (5-37) U/L ALT 8 (0-40) U/L Alkaline Phosphatase 95 (39-117) U/L Troponin I High Sens 77.4 H D (<3.5-35.0) ng/L C-Reactive Protein 3.68 H (< or = 0.50) mg/dL B-Natriuretic Peptide 215 H (<100) pg/mL Total Protein 7.4 (6.5-8.0) g/dL Albumin 3.5 (3.5-5.0) g/dL Lipase 25 (8-78) U/L Urine Color Urine Appearance Urine pH (5.0-9.0) Ur Specific [place] (1.005-1.025) Urine Protein (Neg-Trace) mg/dL Urine Glucose (UA) (Negative) mg/dL Urine Ketones (Negative) mg/dL Urine Blood (Negative) Urine Nitrite (Negative) Ur Leukocyte Esterase (Negative) Urine RBC (0-2) /HPF Urine WBC (0-5) /HPF Ur Squamous Epith Cells (0-2) /HPF Urine Bacteria (None Seen) Hyaline Casts (0-2) /LPF Influenza Type A (PCR) NEGATIVE (Negative) Influenza Type B (PCR) NEGATIVE (Negative) RSV RNA Qual (PCR) NEGATIVE (Negative) SARS-CoV-2 RNA (RT-PCR) NEGATIVE (Negative) Blood Type O Positive Antibody Screen NEGATIVE 11/11/23 11/11/23 Range/Units 06:51 07:55 WBC (4.8-10.8) X10*3/uL RBC (4.60-5.80) X10*6/uL Hgb (14.0-18.0) g/dl Hct (42.0-52.0) % MCV (80.0-98.0) fL MCH (27.0-33.0) pg MCHC (31.0-36.0) g/dl RDW (11.0-16.0) % Plt Count (160-400) X10*3/uL MPV (9.4-12.4) fL Immature Gran % (Auto) (0.0-0.4) % Neut % (Auto) (45-73) % Lymph % (Auto) (20-40) % [place] % (Auto) (2-11) % Eos % (Auto) (0-4) % Baso % (Auto) (0-2) % Lymph # (Auto) (1.2-4.9) X10*3/uL [place] # (Auto) (0.1-1.2) X10*3/uL Eos # (Auto) (0.0-0.4) X10*3/uL Baso # (Auto) (0.0-0.2) X10*3/uL Abs Immat Gran (auto) (0.00-0.03) X10*3/uL Absolute Neuts (auto) (2.0-8.3) x10*3/uL Absolute Nucleated RBC (0.0-0.012) X10*3/uL Nucleated RBC % (auto) (0.0-0.2) /100WBC Smear Tech's Comments PT (11.1-13.3) SEC INR (0.9-1.1) Sodium (135-145) mmol/L Potassium (3.3-5.1) mmol/L Chloride (96-108) mmol/L Carbon Dioxide (22-29) mmol/L Anion Gap (12-20) BUN (9-16) mg/dL Creatinine (0.5-1.4) mg/dL Estim Creat Clear Calc Estimated GFR Random Glucose (60-115) mg/dL Lactic Acid 1.5 (0.5-2.0) mmol/L Calcium (8.4-10.2) mg/dL Total Bilirubin (0.0-1.0) mg/dL Direct Bilirubin (0.0-0.5) mg/dL AST (5-37) U/L ALT (0-40) U/L Alkaline Phosphatase (39-117) U/L Troponin I High Sens (<3.5-35.0) ng/L C-Reactive Protein (< or = 0.50) mg/dL B-Natriuretic Peptide (<100) pg/mL Total Protein (6.5-8.0) g/dL Albumin (3.5-5.0) g/dL Lipase (8-78) U/L Urine Color Yellow Urine Appearance Turbid Urine pH 6.0 (5.0-9.0) Ur Specific [place] 1.025 (1.005-1.025) Urine Protein 30 (1+) H (Neg-Trace) mg/dL Urine Glucose (UA) Negative (Negative) mg/dL Urine Ketones Negative (Negative) mg/dL Urine Blood Moderate (2+) H (Negative) Urine Nitrite Negative (Negative) Ur Leukocyte Esterase Large (3+) H (Negative) Urine RBC 3-5 H (0-2) /HPF Urine WBC >50 H (0-5) /HPF Ur Squamous Epith Cells 0-2 (0-2) /HPF Urine Bacteria 1+ (None Seen) Hyaline Casts 0-2 (0-2) /LPF Influenza Type A (PCR) (Negative) Influenza Type B (PCR) (Negative) RSV RNA Qual (PCR) (Negative) SARS-CoV-2 RNA (RT-PCR) (Negative) Blood Type Antibody Screen Critical Care Time Critical Care Time Critical Care Time: Yes Total Critical Care Time: 60 Attestation: The patient was critically ill with a high probability of imminent or life-threatening deterioration. ?I spent greater than 30 minutes of discontinuous time evaluating the patient, delivering critical care at the bedside, discussing evaluating data with consultants. ?Critical care time does not include time spent performing separately billable procedures or teaching. ?Time spent performing critical care with 60 minutes. Discharge Plan Discharge Clinical Impression: Urinary tract infection with fever, Atrial fibrillation with rapid ventricular response Patient Disposition: Admitted As Inpatient
--- NOTE | 2023-11-11 07:59 | ECG_ITS ---
Test Reason : rhythom change / Afib Blood Pressure : / mmHG Vent. Rate : 114 BPM Atrial Rate : 000 BPM P-R Int : 000 ms QRS Dur : 110 ms QT Int : 356 ms P-R-T Axes : 000 -86 -02 degrees QTc Int : 490 ms Atrial fibrillation with rapid ventricular response Left axis deviation Low voltage QRS Right bundle branch block Inferior infarct (cited on or before 11-NOV-2023) Possible Anterolateral infarct (cited on or before 11-NOV-2023) Abnormal ECG When compared with ECG of 11-NOV-2023 06:25, Atrial fibrillation has replaced Supraventricular tachycardia Referred By: Romero Vizcaino Electronically Signed By:CAREY MORENO MD
[2023-11-11 08:08] LABS: Lactic Acid 1.5 mmol/L (0.5-2.0)
[2023-11-11] MEDS: dilTIAZem HCL 50 MG/10 ML VIAL 10 MG IVPUSH (08:21)
[2023-11-11 09:30] LABS: C Reactive Protein 3.68 mg/dL (< or = 0.50)
[2023-11-11] MEDS: iohexoL 350 MG/ML 100 ML INFUS..BTL IV (09:51)
[2023-11-11] MEDS: Digoxin 0.5 MG/2 ML AMPUL 0.25 MG IVPUSH ×2 (10:09→13:41)
[2023-11-11] MEDS: Acetaminophen Supp 650 MG SUPP.RECT PR (10:16)
[2023-11-11 11:27] LABS: Appearance Urine Turbid; Color Urine Yellow; Glucose Urine UA Negative (Negative); Leukocyte Esterase Urine Large (3+) (Negative); Nitrite Urine Negative (Negative); Specific Gravity - Urine 1.025 (1.005-1.025); UMIC TRIGGER UACC YES; Urine Blood Moderate (2+) (Negative); Urine Ketones Negative (Negative); Urine Protein 30 (1+) mg/dL (Neg-Trace)
[2023-11-11 11:50] LABS: Bacteria Urine 1+ (None Seen); Hyaline Casts Urine 0-2 /LPF (0-2); Squamous Epithelial Cell Urine 0-2 /HPF (0-2); UACC Culture Trigger YES; WBC Urine >50 /HPF (0-5)
[2023-11-11] MEDS: Metoprolol Tartrate 25 MG TABLET PO ×2 (11:52→20:16)
--- NOTE | 2023-11-11 12:02 | PC.NURSE ---
pt alert to self only, at bedside reports that pt is at bedside. pt speech disorganized. he is able to answer yes/no questions infrequently. pt able to complete swallow eval. difficulty following direction, spoke with MD Jasso who was ok with trialing med administration crushed in apple sauce - this is pts baseline. pt tolerated well.
[2023-11-11] MEDS: Lactated Ringers 1,000 ML 999 ML IV (12:15)
--- NOTE | 2023-11-11 13:31 | PM.IMHP ---
History of Present Illness Date of Service: 11/11/23 Chief Complaint: Fever 83-year-old male with a history of dementia who lives at the [facility] home. Apparently he seemed acutely ill this morning with hypotension, tachycardia and vomiting. He would apparently vomited some dark material but had had some chocolate pudding not long before the episode of vomiting. Upon presentation to the ER patient found to be in AFib with rapid ventricular response that was intermittent. During these episodes he was profoundly hypotensive. Of note, he also had a temperature of 101.8 degrees on arrival. Initial ultrasound consistent with cholelithiasis. Review of Systems Review of Systems: Unable to obtain REPLACED BY [facility] Medical History Renal mass Hematuria Vascular dementia Anxiety Dementia Hypertension History of GI bleed Heterozygous factor V Leiden mutation History of melanoma Hx of deep venous thrombosis Family History Father Lung cancer Maternal Grandmother Breast cancer Mother Breast cancer Colon cancer Social History Household Members: None Housing: Assisted Living Facility Are you a primary family day carer to a significant other at home: No Do you presently have visiting nurse or other home services: No Alcohol intake: unknown 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 Patient Tobacco Use Status: Former Tobacco user Quit Date: over 40 years ago Tobacco use type: Cigarette Years Smoked: 15 e-Cigarette/Vaping Use: Never Used Second Hand Smoke Exposure: No Advance Directives Date on File: 06/11/22 service: Yes Current occupational status: retired Sexual orientation: Straight/Heterosexual Meds Allergies Allergy/AdvReac Type Severity Reaction Status Date / Time bee pollen [BEE STINGS] Allergy Unknown UNKNOWN Verified 11/11/23 06:20 lisinopril [LISINOPRIL] Allergy Unknown FACIAL Verified 11/11/23 06:20 EDEMA Active Medications: Current Medications Acetaminophen (Acetaminophen 325 Mg Tablet) 650 mg PO BID@0900,1700 [facility] Acetaminophen (Acetaminophen 325 Mg Tablet) 650 mg PO Q4H PRN PRN Reason: Fever Or Pain Acetaminophen (Acetaminophen 325 Mg Tablet) 650 mg PO Q6H PRN PRN Reason: Pain, Mild (Pain Scale 1-3) Apixaban (Apixaban 5 Mg Tablet) 5 mg PO BID [facility] Ascorbic Acid (Ascorbic Acid 500 Mg Tablet) 1,000 mg PO DAILY [facility] Aspirin (Aspirin 81 Mg Tab.Chew) 81 mg PO DAILY [facility] Bisacodyl (Bisacodyl 5 Mg Tablet.) 5 mg PO DAILY PRN PRN Reason: Constipation Bisacodyl (Bisacodyl 10 Mg Supp.Rect) [address] DAILY PRN PRN Reason: Constipation Finasteride (Finasteride 5 Mg Tablet) 5 mg PO BEDTIME [facility] Gabapentin (Gabapentin 100 Mg Capsule) 200 mg PO BID PRN PRN Reason: Agitation Gabapentin (Gabapentin 100 Mg Capsule) 200 mg PO QPM [facility] Gabapentin (Gabapentin 300 Mg Capsule) 300 mg PO DAILY@2000 [facility] Gabapentin (Gabapentin 400 Mg Capsule) 400 mg PO DAILY@1300 [facility] Norepinephrine Bitartrate (Levophed) 8 mg in 250 mls @ 0 mls/hr IV .Q0M [facility]; Protocol Piperacillin Sod/Tazobactam (Sod 4.5 gm/ Sodium Chloride) 100 mls @ 200 mls/hr IV Q6H [facility] Melatonin (Melatonin 3 Mg Tablet) 6 mg PO BEDTIME [facility] Methenamine Hippurate (Methenamine Hippurate 1 Gm Tablet) 1 gm PO DAILY [facility] Metoprolol Tartrate (Metoprolol Tartrate 25 Mg Tablet) 25 mg PO BID [facility]; Protocol Non-Formulary Medication (Epinephrine) 0.3 mg IM DAILY PRN PRN Reason: Anaphylaxis Non-Formulary Medication (Simvastatin) 40 mg PO BEDTIME [facility] Omeprazole (Omeprazole 20 Mg Capsule.) 20 mg PO DAILY@0630 [facility] Polyethylene Glycol (Polyethylene Glycol 3350 17 Gm Powd.Pack) 17 gm PO BID@0900,1700 [facility] Quetiapine Fumarate (Quetiapine Fumarate 25 Mg Tablet) 25 mg PO BID@0600,2000 [facility] Quetiapine Fumarate (Quetiapine Fumarate 100 Mg Tablet) 100 mg PO DAILY@1400 [facility] Sertraline HCl (Sertraline Hcl 25 Mg Tablet) 25 mg PO DAILY@0900 [facility] Sertraline HCl (Sertraline Hcl 50 Mg Tablet) 50 mg PO DAILY [facility] Tamsulosin HCl (Tamsulosin Hcl 0.4 Mg Capsule) 0.4 mg PO BEDTIME [facility] Vitamin D (Cholecalciferol (Vitamin D3) 25 Mcg Tablet) 25 mcg PO DAILY [facility] Home Medications ?Medication ?Instructions ?Recorded ?Confirmed ?Last Taken ?Type cholecalciferol (vitamin D3) 25 25 mcg PO DAILY 09/03/21 11/11/23 11/10/23 History mcg (1,000 unit) tablet (Vitamin D3) gabapentin 100 mg capsule 2 cap PO QPM 09/03/21 11/11/23 11/10/23 History acetaminophen 325 mg tablet 650 mg PO BID@0900,1700 06/11/22 11/11/23 11/10/23 History bisacodyl 10 mg rectal suppository [address] DAILY PRN Constipation 06/11/22 11/11/23 Unknown History omeprazole 20 mg tablet,delayed 20 mg PO DAILY@0630 06/11/22 11/11/23 11/10/23 History release acetaminophen 325 mg tablet 650 mg PO Q4H PRN Fever Or Pain 08/22/22 11/11/23 Unknown History ascorbic acid (vitamin C) 1,000 mg 1,000 mg PO DAILY 08/22/22 11/11/23 11/10/23 History tablet epinephrine 0.3 mg/0.3 mL 0.3 mg IM DAILY PRN Anaphylaxis 08/22/22 11/11/23 Unknown History injection, auto-injector metoprolol tartrate 25 mg tablet 25 mg PO BID 08/22/22 11/11/23 11/10/23 History ammonium lactate 12 % lotion 1 appl topical BID 11/11/23 11/11/23 11/10/23 History apixaban 5 mg tablet 5 mg PO BID 11/11/23 11/11/23 11/10/23 History aspirin 81 mg chewable tablet 81 mg PO DAILY 11/11/23 11/11/23 11/10/23 History bisacodyl 5 mg tablet 5 mg PO DAILY PRN Constipation 11/11/23 11/11/23 Unknown History finasteride 5 mg tablet 5 mg PO BEDTIME 11/11/23 11/11/23 11/10/23 History gabapentin 100 mg capsule 200 mg PO BID PRN Agitation 11/11/23 11/11/23 Unknown History gabapentin 300 mg capsule 300 mg PO DAILY@199911/11/23 11/11/23 11/10/23 History gabapentin 400 mg capsule 400 mg PO DAILY@1300 11/11/23 11/11/23 11/10/23 History oseltamivir 30 mg capsule (Tamiflu) 30 mg PO DAILY@1700 11/11/23 11/11/23 11/10/23 History polyethylene glycol 3350 17 17 g PO BID@0900,1700 11/11/23 11/11/23 11/10/23 History gram/dose oral powder (Miralax) quetiapine 100 mg tablet 100 mg PO DAILY@1400 11/11/23 11/11/23 11/10/23 History quetiapine 25 mg tablet 25 mg PO BID@0600,2000 11/11/23 11/11/23 11/10/23 History sertraline 25 mg tablet 25 mg PO DAILY@0900 11/11/23 11/11/23 11/10/23 History sertraline 50 mg tablet 50 mg PO DAILY 11/11/23 11/11/23 11/10/23 History Physical Exam Vital Signs and Narrative: Vital Signs: Last Vital Signs Temp 101.8 F H 11/11/23 07:23 Pulse 150 H 11/11/23 12:11 Resp 25 H 11/11/23 12:11 BP 123/91 H 11/11/23 12:11 Pulse Ox 95 11/11/23 12:11 O2 Del Method Room Air 11/11/23 12:11 BMI result Body Mass Index 31.0 Const: Other: Awake confused Resp: Other: Clear to auscultation bilaterally no rales rhonchi or wheezes Cardio: Other: No S4; positive S1-S2; no S3 murmurs rubs or gallops. Intermittent atrial fibrillation with rapid ventricular response noted GI: Other: Soft tender right upper quadrant without rebound Extrem: Other: No edema Results Labs 11/11/23 06:28 11/11/23 06:28 Labs: Laboratory Results - last 24 hr 11/11/23 11/11/23 11/11/23 06:28 06:35 06:36 MCV 93.9 MCH 31.4 MCHC 33.4 RDW 13.2 Plt Count 172 MPV 8.7 L Immature Gran % (Auto) 0.4 Neut % (Auto) 91.8 H Lymph % (Auto) 4.3 L Rolette % (Auto) 3.4 Eos % (Auto) 0.0 Baso % (Auto) 0.1 Lymph # (Auto) 0.4 L Rolette # (Auto) 0.3 Eos # (Auto) 0.0 Baso # (Auto) 0.0 Abs Immat Gran (auto) 0.03 Absolute Neuts (auto) 7.4 Absolute Nucleated RBC 0.000 Nucleated RBC % (auto) 0.0 Smear Tech's Comments VERIFIED PT 16.7 H INR 1.4 H Anion Gap 11 L Estim Creat Clear Calc 62.8 Estimated GFR 57 Random Glucose 120 H Lactic Acid 1.2 Calcium 8.8 Total Bilirubin 0.6 Direct Bilirubin 0.2 AST 16 ALT 8 Alkaline Phosphatase 95 Troponin I High Sens 77.4 H D C-Reactive Protein 3.68 H B-Natriuretic Peptide 215 H Total Protein 7.4 Albumin 3.5 Lipase 25 Urine Color Urine Appearance Urine pH Ur Specific Max Urine Protein Urine Glucose (UA) Urine Ketones Urine Blood Urine Nitrite Ur Leukocyte Esterase Urine RBC Urine WBC Ur Squamous Epith Cells Urine Bacteria Hyaline Casts Influenza Type A (PCR) NEGATIVE Influenza Type B (PCR) NEGATIVE RSV RNA Qual (PCR) NEGATIVE SARS-CoV-2 RNA (RT-PCR) NEGATIVE Blood Type O Positive Antibody Screen NEGATIVE 11/11/23 11/11/23 06:51 07:55 MCV MCH MCHC RDW Plt Count MPV Immature Gran % (Auto) Neut % (Auto) Lymph % (Auto) Rolette % (Auto) Eos % (Auto) Baso % (Auto) Lymph # (Auto) Rolette # (Auto) Eos # (Auto) Baso # (Auto) Abs Immat Gran (auto) Absolute Neuts (auto) Absolute Nucleated RBC Nucleated RBC % (auto) Smear Tech's Comments PT INR Anion Gap Estim Creat Clear Calc Estimated GFR Random Glucose Lactic Acid 1.5 Calcium Total Bilirubin Direct Bilirubin AST ALT Alkaline Phosphatase Troponin I High Sens C-Reactive Protein B-Natriuretic Peptide Total Protein Albumin Lipase Urine Color Yellow Urine Appearance Turbid Urine pH 6.0 Ur Specific Max 1.025 Urine Protein 30 (1+) H Urine Glucose (UA) Negative Urine Ketones Negative Urine Blood Moderate (2+) H Urine Nitrite Negative Ur Leukocyte Esterase Large (3+) H Urine RBC 3-5 H Urine WBC >50 H Ur Squamous Epith Cells 0-2 Urine Bacteria 1+ Hyaline Casts 0-2 Influenza Type A (PCR) Influenza Type B (PCR) RSV RNA Qual (PCR) SARS-CoV-2 RNA (RT-PCR) Blood Type Antibody Screen Imaging Radiologist's Impressions: Impressions Chest X-Ray 11/11/23 07:47 IMPRESSION: No acute pulmonary disease. Abdomen/Pelvis CT 11/11/23 10:00 IMPRESSION: * No acute imaging abnormalities in the abdomen or pelvis. * Diffuse hepatic steatosis. * There appears to be slightly hyperdense sludge and/or layering of small calcified stones of the gallbladder. No evidence of cholecystitis on this somewhat limited exam. * Chronic osteonecrosis involving anterosuperior aspect of each femoral head. Abdomen Ultrasound 11/11/23 11:40 IMPRESSION: 1. Cholelithiasis with positive Plaza's sign. 2. Mildly dilated common bile duct. 3. Hepatic steatosis. Assessment and Plan (1) Urinary tract infection with fever: Status: Acute (2) Atrial fibrillation with rapid ventricular response: Status: Acute (3) Abdominal pain: Qualifiers: Abdominal location: right upper quadrant Qualified Code(s): R10.11 - Right upper quadrant pain Status: Acute Plan 83-year-old male with a history of paroxysmal atrial fibrillation on Eliquis presents today with what describes as mild mental status changes. Workup in emergency room consistent with a urine with active sediment and right upper quadrant pain. Ultrasound revealed cholelithiasis with positive Plaza sign. Patient also noted to be in AFib with rapid ventricular response intermittently with hypotension. 1. Right upper quadrant pain/positive Plaza sign -will treat empirically with Zosyn (1) -not a candidate for any invasive therapies -conservative this time; pain meds as tolerated 2. Atrial fibrillation with rapid ventricular response/paroxysmal -given labile blood pressure will treat with did load. -discussed with ; no aggressive treatment at this time. Agrees with digoxin -no need for telemetry as would not change our management -continue Eliquis as ordered 3. Active urinary sediment -given fevers suspicious for UTI -continue empiric Zosyn pending cultures Full code Eliquis Long discussion with related to aggressiveness and MOLST documentation. We will give 24 hours of IV antibiotics and likely discharge back to [facility] within 24 hours. Quality Stroke Does the patient have a stroke diagnosis?: No VTE Prior VTE?: No VTE Risk Level:: Medical - moderate - high VTE Device Contraindication: Treatment Not Indicated VTE Drug Contraindication: N/A - Med Ordered
--- NOTE | 2023-11-11 13:34 | PHA.MEDREC ---
Pharmacy Consult ? Medication Reconciliation Pharmacy has completed the medication reconciliation using list from [facility].
[2023-11-11] MEDS: Piperacillin Sodium/Tazobactam 4.5 GM in 0.9 % Sodium Chloride 100 ML IV ×2 (14:44→20:13)
--- NOTE | 2023-11-11 15:04 | ECG_ITS ---
Test Reason : TACARDYA Blood Pressure : / mmHG Vent. Rate : 085 BPM Atrial Rate : 085 BPM P-R Int : 266 ms QRS Dur : 110 ms QT Int : 378 ms P-R-T Axes : 015 -75 -03 degrees QTc Int : 449 ms Sinus rhythm with 1st degree A-V block Left axis deviation Low voltage QRS Incomplete right bundle branch block Inferior infarct (cited on or before 11-NOV-2023) Possible Anterolateral infarct (cited on or before 11-NOV-2023) Abnormal ECG When compared with ECG of 11-NOV-2023 07:59, Sinus rhythm has replaced Atrial fibrillation Referred By: Romero Vizcaino Electronically Signed By:CAREY MORENO MD
--- NOTE | 2023-11-11 15:33 | MHC.EDTECH ---
THIS PCT ASSUMED CARE OF PATIENT AT 1500 ,VITALS TAKEN ,REPEATED EKG DONE AND WAS READ BY PROVIDER ,PATIENT WAS INCONTINENT OF STOOL ,CARE GIVEN AND BEDDING CHANGE ,PT WATCHING TELEVISION ,PATIENT BELONINGS LIST DONE ,PATIENT AT BEDSIDE .
[2023-11-11] MEDS: Gabapentin 100 MG CAPSULE 200 MG PO (15:45)
[2023-11-11] MEDS: QUEtiapine Fumarate 100 MG TABLET PO (15:45)
--- NOTE | 2023-11-11 18:31 | MHC.CM.PN ---
JANINE 11/10. Reviewed with HCP/ due to patient's decreasing mental capacity. Original copy given to and copy to medical records. CM met with patient placed to observation with bed assignment pending. Pt has advancing dementia and is not orientated. /HCP at bedside. Pt lives at the [facility]. Has been there for about 2 years. Was using a cane, but now needs a walker. HCP/MOLST and POA are on file. MOLST -DNR/DNI with short term hydration. HCP #1 Laurie Navarro ([phone]). HCP#2/son Eduar Aldridge ([phone]). PCP is Dr. Galindo. D/C plan: Return to [facility]. Will need S transportation.
[2023-11-11] MEDS: Acetaminophen 325 MG TABLET 650 MG PO (18:49)
[2023-11-11] MEDS: polyethylene glycoL 3350 17 GM POWD.PACK PO (18:50)
[2023-11-11] MEDS: Gabapentin 300 MG CAPSULE PO (20:15)
[2023-11-11] MEDS: Melatonin 3 MG TABLET 6 MG PO (20:15)
[2023-11-11] MEDS: Atorvastatin Calcium 20 MG TABLET PO (20:16)
[2023-11-11] MEDS: QUEtiapine Fumarate 25 MG TABLET PO (20:16)
[2023-11-11] MEDS: Apixaban 5 MG TABLET PO (20:16)
[2023-11-11] MEDS: Tamsulosin HCL 0.4 MG CAPSULE PO (20:16)
[2023-11-11] MEDS: Finasteride 5 MG TABLET PO (20:16)
[2023-11-12] MEDS: Piperacillin Sodium/Tazobactam 4.5 GM in 0.9 % Sodium Chloride 100 ML IV ×3 (02:01→12:50)
[2023-11-12 05:28] LABS: MANUAL DIFF FLAG NO
[2023-11-12 05:33] LABS: Basophils Percent Auto 0.2 % (0-2); Eosinophils Percent Auto 0.7 % (0-4); Hematocrit 36.3 % (42.0-52.0); Hemoglobin 11.8 g/dl (14.0-18.0); Imm Gran Abs Auto 0.02 X10*3/uL (0.00-0.03); Imm Gran Pct Auto 0.5 % (0.0-0.4); Lymphocytes Absolute Auto 0.9 X10*3/uL (1.2-4.9); Lymphocytes Percent Auto 21.2 % (20-40); Mean Corpuscular HGB Conc 32.5 g/dl (31.0-36.0); Mean Corpuscular Hemoglobin 31.8 pg (27.0-33.0); Mean Corpuscular Volume 97.8 fL (80.0-98.0); Mean Platelet Volume 8.3 fL (9.4-12.4); Monocytes Absolute Auto 0.5 X10*3/uL (0.1-1.2); Monocytes Percent Auto 10.7 % (2-11); Neutrophils Absolute Auto 2.8 x10*3/uL (2.0-8.3); Neutrophils Percent Auto 66.7 % (45-73); Platelet Count 112 X10*3/uL (160-400); Red Blood Count 3.71 X10*6/uL (4.60-5.80); Red Cell Distribution Width 13.3 % (11.0-16.0); White Blood Count 4.2 X10*3/uL (4.8-10.8)
[2023-11-12 05:50] LABS: Alanine Aminotransferase 8 U/L (0-40); Albumin Level 3.2 g/dL (3.5-5.0); Alkaline Phosphatase 73 U/L (39-117); Anion Gap 9 (12-20); Aspartate Amino Transferase 22 U/L (5-37); Bilirubin Total 0.6 mg/dL (0.0-1.0); Blood Urea Nitrogen 28 mg/dL (9-16); Calcium 8.2 mg/dL (8.4-10.2); Carbon Dioxide 26 mmol/L (22-29); Chloride 111 mmol/L (96-108); Creatinine Clr Calc Pharmacy 64.2; Estimated Glomerular Filt Rate 58; Glucose Random 89 mg/dL (60-115); Sodium 142 mmol/L (135-145); Total Protein 6.6 g/dL (6.5-8.0)
[2023-11-12] MEDS: QUEtiapine Fumarate 25 MG TABLET PO (06:12)
[2023-11-12] MEDS: polyethylene glycoL 3350 17 GM POWD.PACK PO (07:07)
[2023-11-12] MEDS: Metoprolol Tartrate 25 MG TABLET PO (07:08)
[2023-11-12] MEDS: Aspirin 81 MG TAB.CHEW PO (07:09)
[2023-11-12] MEDS: Acetaminophen 325 MG TABLET 650 MG PO (07:09)
[2023-11-12] MEDS: Sertraline HCL 50 MG TABLET PO (07:09)
[2023-11-12] MEDS: Apixaban 5 MG TABLET PO (07:09)
[2023-11-12] MEDS: Sertraline HCL 25 MG TABLET PO (07:10)
[2023-11-12] MEDS: Methenamine Hippurate 1 GM TABLET PO (07:10)
--- NOTE | 2023-11-12 07:11 | ECG_ITS ---
Test Reason : tachycardia Blood Pressure : / mmHG Vent. Rate : 090 BPM Atrial Rate : 000 BPM P-R Int : 000 ms QRS Dur : 116 ms QT Int : 374 ms P-R-T Axes : 000 -83 001 degrees QTc Int : 457 ms Normal sinus rhythm with Premature atrial complexes Left axis deviation Low voltage QRS Incomplete right bundle branch block Possible Anterolateral infarct (cited on or before 11-NOV-2023) Abnormal ECG When compared with ECG of 11-NOV-2023 15:17, No significant changes seen Referred By: Leander Prabhakar Electronically Signed By:CAREY MORENO MD
[2023-11-12] MEDS: Ascorbic Acid 500 MG TABLET 1000 MG PO (07:12)
[2023-11-12] MEDS: Cholecalciferol (Vitamin D3) 25 MCG TABLET PO (07:12)
[2023-11-12 07:46] VITALS: BP 160/85; PULSE 83; RESP 18; TEMP 36.3; O2SAT 97
--- NOTE | 2023-11-12 12:14 | P.DS_ITS ---
DS: Providers Provider Date of Service: 11/12/23 Date of admission: 11/11/23 13:25 Date of discharge: 11/12/23 Primary care physician: Ruddy Galindo MD Consults: 11/11/23 18:31 Consult to Wound Care Routine Reason for consultation: bilateral buttocks redness,redness under left breast skin intact Has provider been notified: No DS: Diagnosis Discharge Diagnosis (1) Urinary tract infection with fever: Status: Acute (2) Atrial fibrillation with rapid ventricular response: Status: Acute (3) Abdominal pain: Status: Acute DS: Summary Hospital Course Hospital Course: 83-year-old male with a history of dementia who lives at the [facility]. Apparently he seemed acutely ill this morning with hypotension, tachycardia and vomiting. He would apparently vomited some dark material but had had some chocolate pudding not long before the episode of vomiting. Upon presentation to the ER patient found to be in AFib with rapid ventricular response that was intermittent. During these episodes he was profoundly hypotensive. Of note, he also had a temperature of 101.8 degrees on arrival. Initial ultrasound consistent with cholelithiasis. Hospital Course Patient was admitted to the general medical floor. Long discussion with (Laurie); despite MOLST form it was decided that he would be treated with Zosyn for likely UTI and possible gallbag issues. (empiric). Urine ultimately grew out strep viridans. Because of his recurrent hypotension with his bouts of AFib with RVR, it was decided that he would be digitalized IV and sent back on p.o. did. This was the most aggressive that Mrs. Navarro wished. T-max during this hospitalization was 101.8 on the morning of admission. He has been afebrile for the remainder of his hospitalization. He has stayed in sinus rhythm since his digitalization and continues to be so. At this point in time he is medically acceptable returned to [facility] complete course of oral antibiotics and then resume his care as outlined there. Time Attestation Discharge Coordination Time (in mins): 35 Quality: Safe Use of Opioids Does Pt have an Active Cancer Diagnosis on the Problem List?: No Quality: Stroke Does the patient have a stroke diagnosis?: No Physical Exam Vital Signs: Vital Signs: Last Vital Signs Temp 97.3 F 11/12/23 07:46 Pulse 83 11/12/23 07:46 Resp 18 11/12/23 07:46 BP 160/85 H 11/12/23 07:46 Pulse Ox 97 11/12/23 07:46 O2 Del Method Room Air 11/12/23 07:46 BMI result Body Mass Index 31.0 Const: Other: Awake confused Resp: Other: Clear to auscultation bilaterally no rales rhonchi or wheezes Cardio: Other: No S4; positive S1-S2; no S3 murmurs rubs or gallops. Intermittent atrial fibrillation with rapid ventricular response noted GI: Other: Soft tender right upper quadrant without rebound Extrem: Other: No edema DS: Data Data Completed and Pending Labs on day of discharge: Laboratory Results - last 24 hr 11/12/23 05:22 WBC 4.2 L RBC 3.71 L Hgb 11.8 L Hct 36.3 L MCV 97.8 MCH 31.8 MCHC 32.5 RDW 13.3 Plt Count 112 L D MPV 8.3 L Immature Gran % (Auto) 0.5 H Neut % (Auto) 66.7 Lymph % (Auto) 21.2 Davis % (Auto) 10.7 Eos % (Auto) 0.7 Baso % (Auto) 0.2 Lymph # (Auto) 0.9 L Davis # (Auto) 0.5 Eos # (Auto) 0.0 Baso # (Auto) 0.0 Abs Immat Gran (auto) 0.02 Absolute Neuts (auto) 2.8 Absolute Nucleated RBC 0.000 Nucleated RBC % (auto) 0.0 Sodium 142 Potassium 4.0 Chloride 111 H Carbon Dioxide 26 Anion Gap 9 L BUN 28 H Creatinine 1.20 Estim Creat Clear Calc 64.2 Estimated GFR 58 Random Glucose 89 Calcium 8.2 L D Total Bilirubin 0.6 AST 22 ALT 8 Alkaline Phosphatase 73 Total Protein 6.6 Albumin 3.2 L Preliminary micro results at discharge 11/11/23 06:35 Blood Culture - Preliminary Blood - Venous No growth after 24 hours. 11/11/23 06:43 Blood Culture - Preliminary Blood - Venous No growth after 24 hours. Discharge Plan Discharge Anticipated Discharge Date/Time: 11/12/23 11:36 Patient Disposition: Xfer [facility] Discharge Diagnosis: Abdominal pain Referrals: [facility] [Outside] Ruddy Galindo MD [Primary Care Provider] - 1 Week Discharge Medications: New digoxin [Digox] 125 mcg (0.125 mg) tablet 125 mcg PO DAILY Qty: 30 0RF amoxicillin-pot clavulanate 875-125 mg tablet 1 tab PO BID Qty: 20 0RF Continued tamsulosin 0.4 mg capsule 0.4 mg PO BEDTIME 90 Days Qty: 90 1RF acetaminophen 325 mg Tablet 650 mg PO BID@0900,1700 bisacodyl 10 mg Suppository 10 mg NC DAILY PRN (Reason: Constipation) Rx Instructions: FOR NO BOWEL MOVEMENT IN 3 DAYS AND SOFT STOOL IN RECTUM omeprazole 20 mg Tablet,Delayed Release (Dr/Ec) 20 mg PO DAILY@0630 melatonin 3 mg Tablet 6 mg PO BEDTIME Qty: 30 0RF simvastatin 40 mg Tablet 40 mg PO BEDTIME Qty: 30 0RF gabapentin 100 mg capsule 2 cap PO DAILY@1600 cholecalciferol (vitamin D3) [Vitamin D3] 25 mcg (1,000 unit) Tablet 25 mcg PO DAILY acetaminophen 325 mg Tablet 650 mg PO Q4H PRN (Reason: Fever Or Pain) Rx Instructions: do not exceed 3 grams/day epinephrine 0.3 mg/0.3 mL Auto-Injector 0.3 mg IM ONCE PRN (Reason: Anaphylaxis) metoprolol tartrate 25 mg Tablet 25 mg PO BID ascorbic acid (vitamin C) 1,000 mg tablet 1,000 mg PO DAILY finasteride 5 mg tablet 5 mg PO BEDTIME bisacodyl 5 mg Tablet 5 mg PO DAILY PRN (Reason: Constipation) Rx Instructions: FOR NO BOWEL MOVEMENT FOR 3 DAYS AND SOFT STOOL IN RECTUM gabapentin 100 mg Capsule 200 mg PO BID PRN (Reason: Agitation) ammonium lactate 12 % Lotion 1 appl TOPICAL BID apixaban 5 mg Tablet 5 mg PO BID quetiapine 25 mg Tablet 25 mg PO BID@0600,2000 gabapentin 400 mg Capsule 400 mg PO DAILY@1300 quetiapine 100 mg Tablet 100 mg PO DAILY@1400 gabapentin 300 mg Capsule 300 mg PO DAILY@2000 sertraline 25 mg Tablet 25 mg PO DAILY@0900 Rx Instructions: GIVE WITH 50 MG FOR TDD = 75 MG aspirin 81 mg Tablet,Chewable 81 mg PO DAILY polyethylene glycol 3350 [Miralax] 17 gram/dose Powder 17 g PO BID@0900,1700 sertraline 50 mg Tablet 50 mg PO DAILY Rx Instructions: GIVE WITH 25 MG FOR TDD = 75 MG oseltamivir [Tamiflu] 30 mg Capsule 30 mg PO DAILY@1700 Rx Instructions: for 14 days, 13th dose was on 11/10/23 methenamine hippurate 1 gram tablet 1 g PO DAILY 90 Days Qty: 90 1RF Discharge Orders: Discharge Order (Routine); Ordered 11/12/23 Ordered By: Leander Prabhakar Diet: Advance to usual diet Activity on Discharge: As tolerated Stand Alone Forms: Patient Portal Discharge page Print Language: Tajik Care Plan Goals: Augmentin 875 twice daily for 10 days has been added to your regimen for UTI treatment. Health Concerns: Digoxin 0.125 mg daily has been added to your regimen for atrial fibrillation Plan of Treatment: Resume all treatments as previously noted at [facility] Assessment: See discharge summary
--- NOTE | 2023-11-12 12:46 | MHC.CM.PN ---
Addendum entered by Jamila Kyle 11/12/23 14:07: DCS FAXED TO [facility] Original Note: PT TO DC BACK TO LTC AT [facility] TODAY VIA BLS CM SPOKE TO RN SOAKER AT [facility], JUAN, SHE REQUESTED DCS BE FAXED TO HER AT [phone] AND IS AWARE TRANSPORT IS BOOKED FOR [id number] HOURS VIA [facility] SPOKE TO PTS /HCP, ALBERTINA [phone], SHE IS AWARE OF DC/TIME SHE SAYS SHE WILL VISIT PT HERE PRIOR TO DC
[2023-11-12] MEDS: Gabapentin 400 MG CAPSULE PO (12:50)
[2023-11-12] MEDS: Digoxin 0.5 MG/2 ML AMPUL 0.25 MG IVPUSH (12:50)
[2023-11-12] MEDS: QUEtiapine Fumarate 100 MG TABLET PO (12:50)
--- NOTE | 2023-11-12 14:59 | HO.WOUND ---
Wound Consult: Initial 83yr old?Male admitted to [facility] on 11/11/23 - See progress notes and H&P for detailed history.? Wound consult placed for Left breast and buttock wound.? Patient was confused and talking nonsensical throughout my assessment he was resistent to care and cleaning and repositioning. Buttock sacrum and coccyx assessed - no wound or injury noted at this time. There is some hyperpigmentation noted to the gluteal crease but no erythema noted and this is likely baseline. He was incontinent of a large volume amount of urine and some stool at the time of my assessment. ? Incontinence care provided. The buttocks and sacrum and coccyx are clean no pink or red erythema noted. The right thigh was noted for a small dark intact stable scab no topical interventions needed. The left breast was assessed but it was difficult to assess based on his level of combativeness but I was able to observe intertrigo to the left breast skin fold - recommend barrier cream to help with moist wound healing and decrease friction. Recommendations: 1. Turn and Reposition every 2 hours and as needed for patient comfort.? Use pillows or wedges to support off loading positions. 2. Off Load all bony prominences with use of pillows and heel boots if needed.? Apply Preventative foams where needed. ? 3. Monitor for incontinence and moisture control, use barrier creams when needed for prevention and treatment. 4. Provide adequate and supplemental nutrition.? 5. Continue low air loss mattress. 6. When applicable maintain blood glucose levels per Providers order. 7. Left Breast - Cleanse with Ph balanced wipes, pat dry. Apply thin layer of barrier cream twice daily. 8. Buttock sacrum and coccyx - Cleanse with Ph balanced wipes, pat dry. Apply thin layer of barrier cream twice a day and PRN after episodes of incontinence. Re-consult wound care Nurse for wound deterioration or wound changes.
[2023-11-12 15:50] VITALS: BP 125/76; PULSE 101; RESP 18; TEMP 36.6; O2SAT 96
== END 2023-11-12 17:44 ==
LOC: HO.ED 12:36 → HO.EDOVER 13:32 → HO.S3 16:39
PROVIDERS: Emergency Medicine; Admitting Provider Hospitalist; Emergency Provider Emergency Medicine; PCP Internal Medicine; Visit Provider Hospitalist
DX: N39.0 Urinary tract infection, site not specified (principal); I48.0 Paroxysmal atrial fibrillation; R10.11 Right upper quadrant pain; R00.0 Tachycardia, unspecified; I95.9 Hypotension, unspecified; R11.10 Vomiting, unspecified; R50.9 Fever, unspecified; Z11.52 Encounter for screening for COVID-19; Z20.828 Contact with and (suspected) exposure to other viral communicable diseases
CPT/HCPCS: 0241U; 36415; 71045; 74177; 76705; 80048; 80053; 80076; 81001; 83605; 83690; 83880; 84484; 85025; 85610; 86140; 86850; 86900; 86901; 87040; 87086; 93005; 96361; 96365; 96366; 96367; 96375; 96376; 99221; 99285; C9113; J0696; J1160; J2543; J7120; Q9967

== ENCOUNTER → 2023-11-11 06:12 | Outpatient (BNV) | payer MEDICARE, SELFPAY | PROVIDERS: Emergency Provider Emergency Medicine; Visit Provider Internal Medicine Cardiovascular Disease | DX: I47.10 Supraventricular tachycardia, unspecified (principal); I44.0 Atrioventricular block, first degree | CPT/HCPCS: 93010 ==

== ENCOUNTER 2023-11-11 13:25 | Outpatient (BNV) | payer MEDICARE, SELFPAY | END 2023-11-12 07:11 | PROVIDERS: Admitting Provider Hospitalist; Emergency Provider Emergency Medicine; PCP Internal Medicine Interventional Cardiology; Visit Provider Internal Medicine Cardiovascular Disease | DX: I49.1 Atrial premature depolarization (principal) | CPT/HCPCS: 93010 ==

== ENCOUNTER → 2023-11-11 13:25 | Outpatient (BNV) | payer MEDICARE, SELFPAY | PROVIDERS: Admitting Provider Hospitalist; Emergency Provider Emergency Medicine; Visit Provider Hospitalist | DX: N39.0 Urinary tract infection, site not specified (principal); I48.91 Unspecified atrial fibrillation; R10.11 Right upper quadrant pain | CPT/HCPCS: 99223; 99239 ==

== ENCOUNTER 2023-11-17 06:48 | Outpatient (REF) | payer MEDICARE, SELFPAY ==
[2023-11-17 07:37] LABS: Digoxin 0.9 ng/mL (0.8-2.0)
== END 2023-11-17 06:49 | disposition home or self-care (01) ==
LOC: HO.HSH2N 06:48
PROVIDERS: Visit Provider Internal Medicine Interventional Cardiology
DX: I48.91 Unspecified atrial fibrillation (principal); Z79.899 Other long term (current) drug therapy
CPT/HCPCS: 36415; 80162

== ENCOUNTER 2023-11-17 11:32 | Outpatient (AMB) | payer MEDICARE, SELFPAY ==
--- NOTE | 2023-11-17 12:47 | HO.VETSHOME ---
Intake Intake Visit Reasons: 6 M f/u Intake Note: [facility] Patient is Present for follow up Urology Med: Tamsulosin, Methenamine, Finasteride Antibiotic Allergy: None Blood Thinner: Aspirin, (Eliquis is currently on Hold) Help Desk Internship Required: No Allergies bee pollen [BEE STINGS] Allergy (Unknown, Verified 11/17/23 12:48) UNKNOWN lisinopril [LISINOPRIL] Allergy (Unknown, Verified 11/17/23 12:48) FACIAL EDEMA HPI HPI Comments History of Present Illness Details Arcadio is a very pleasant male. He is a patient of Dr. Hook. He is seen for the following urologic conditions - microscopic hematuria, gross hematuria - weakness of stream Seen in [facility] accompanied by Evaluation of hematuria previously showed Recent CT scan with small right renal stone Large bladder with large prostate Eliquis was held wants to finasteride started Has restarted Eliquis No further episodes of hematuria Effective bladder emptying Six-month follow-up Lower urinary tract symptoms Progressive weakness of stream Current therapy tamsulosin Gross hematuria Imaging - CT September 2020 persistent left renal thickening, NAD bladder. Scarring bilateral on kidneys. Consistent with prior imaging. Cytology - pending Prior 09/2020 discussion regarding ureteroscopy and potential biopsy. Had been decided not to proceed secondary to progressive memory related issues. Prior hematuria evaluation negative [facility] Medical History Renal mass Hematuria Vascular dementia Anxiety Dementia Hypertension History of GI bleed Heterozygous factor V Leiden mutation History of melanoma Hx of deep venous thrombosis Family History Father Lung cancer Maternal Grandmother Breast cancer Mother Breast cancer Colon cancer Social History Household Members: Other Housing: Other Housing Other:: [facility] Are you a primary wound care rn to a significant other at home: No Do you presently have visiting nurse or other home services: No Alcohol intake: unknown Comment: wangter Patient Tobacco Use Status: Former Tobacco user Quit Date: 40 years ago Tobacco use type: Cigarette Years Smoked: 15 e-Cigarette/Vaping Use: Never Used Second Hand Smoke Exposure: No Advance Directives Date on File: 06/11/22 service: Yes Current occupational status: retired Sexual orientation: Straight/Heterosexual Review of Systems Const Denies chills and Denies fever(s) Card Reports no additional complaints and Denies syncope Resp Denies cough GI Denies abdominal pain and Denies heartburn Reports as per HPI and Denies change in libido Neuro Denies syncope Psych Denies change in libido Endo Denies change in libido Physical Exam Const General: cooperative, healthy appearing, comfortable and no acute distress Orientation/consciousness: patient oriented x3 HEENT Face and sinus: Yes normal facial exam Mouth: moist mucous membranes Neck Neck: Yes normal visual inspection, Yes full ROM and Yes trachea midline Chest Chest palpation & inspection: normal inspection of the chest Resp Effort & Inspection: normal respiratory effort, able to speak in complete sentences and no respiratory distress GI Inspection: Yes normal to inspection Back/Spine/Pelvis Cervical Spine: normal cervical lordosis Thoracic/Lumbar Spine: thoracic and lumbar spine normal to inspection Skin General skin exam: no rashes or lesions noted Neuro General: patient oriented x3, gait normal, tone normal and moves all extremities Extrem General: Yes normal to inspection and Yes capillary refill normal Assessment & Plan Assessment & Plan (1) Hematuria: Code(s): R31.9 - Hematuria, unspecified Qualifiers: Hematuria type: gross Qualified Code(s): R31.0 - Gross hematuria (2) Weak urinary stream: Code(s): R39.12 - Poor urinary stream Plan Six-month follow-up PVR Patient Instructions: Imaging studies, laboratory and physical exam results were discussed and reviewed in detail. No major barriers to patient understanding were identified. An opportunity to ask questions regarding the treatment plan was provided. All questions were answered. The patient expressed understanding and agreement with the above treatment plan. The patient is aware they should contact our office by phone for worsening of their current condition or the appearance of new urologic symptoms. Compliance is encouraged with any medications and followup testing that is ordered. It is a privilege to participate in the urologic care of your patient. If you have any questions or concerns regarding treatment for the above conditions, or other urologic issues, please do not hesitate to contact me. The office telephone contact is [phone]. This note is constructed using voice recognition software. While every effort has been made to ensure accuracy netting weaver errors may have been included. Yours sincerely, Dr Cayden Jiménez MD, [facility] - Urology Providers of Expert, Compassionate Care for the Genitourinary System Coding Level of Care Code [id number] Fac sub, low Diagnoses Gross hematuria R31.0 Hematuria type: gross Weak urinary stream R39.12
== END 2023-11-17 15:46 ==
LOC: HO.HUSV 11:32
PROVIDERS: PCP Internal Medicine; Visit Provider Urology
DX: R31.0 Gross hematuria (principal); R39.12 Poor urinary stream
CPT/HCPCS: 99308

== ENCOUNTER 2023-11-25 07:51 | Outpatient (REF) | payer MEDICARE, SELFPAY ==
[2023-11-25 09:22] LABS: Digoxin 1.1 ng/mL (0.8-2.0)
== END 2023-11-25 07:52 | disposition home or self-care (01) ==
LOC: HO.HSH2N 07:51
PROVIDERS: Visit Provider Internal Medicine Interventional Cardiology
DX: I48.91 Unspecified atrial fibrillation (principal)
CPT/HCPCS: 36415; 80162